=== PATIENT | male | born 1985 | race Caucasian/White ===

== ENCOUNTER → 2021-02-26 10:52 | Outpatient (BNVA) | payer MEDICARE, MEDICAID, SELFPAY | PROVIDERS: Family Provider Nurse Practitioner Family; PCP Nurse Practitioner Family; Referring Provider Nurse Practitioner Family; Visit Provider Anesthesiology Pain Medicine | DX: M47.816 Spondylosis without myelopathy or radiculopathy, lumbar region (principal); M54.16 Radiculopathy, lumbar region; M48.062 Spinal stenosis, lumbar region with neurogenic claudication; M54.9 Dorsalgia, unspecified; M17.0 Bilateral primary osteoarthritis of knee; Z79.891 Long term (current) use of opiate analgesic | CPT/HCPCS: 99205 ==

== ENCOUNTER → 2021-03-03 13:02 | Outpatient (BNVA) | payer MEDICARE, MEDICAID, SELFPAY | PROVIDERS: Family Provider Nurse Practitioner Family; PCP Nurse Practitioner Family; Visit Provider Anesthesiology Pain Medicine | DX: M54.41 Lumbago with sciatica, right side (principal); M54.42 Lumbago with sciatica, left side; M25.551 Pain in right hip; M25.552 Pain in left hip | CPT/HCPCS: 20610; 77002; J1030; J3490 ==

== ENCOUNTER → 2021-03-19 10:14 | Outpatient (BNVA) | payer MEDICARE, MEDICAID, SELFPAY | PROVIDERS: Family Provider Nurse Practitioner Family; PCP Nurse Practitioner Family; Visit Provider Anesthesiology Pain Medicine | DX: M25.551 Pain in right hip (principal); M25.552 Pain in left hip; M54.9 Dorsalgia, unspecified; M54.16 Radiculopathy, lumbar region; M16.0 Bilateral primary osteoarthritis of hip; Z79.891 Long term (current) use of opiate analgesic | CPT/HCPCS: 99213 ==

== ENCOUNTER 2021-03-24 14:48 | Outpatient (CLI) | payer MEDICARE, MEDICAID, SELFPAY ==
--- NOTE | 2021-03-24 15:15 | MR_ITS ---
WS: [id number] MRI LUMBAR SPINE NONCONTRAST TECHNIQUE: Sagittal T1, T2 and STIR imaging. Axial T1 and T2 imaging. CLINICAL INFORMATION: M54.16 - Radiculopathy, lumbar region COMPARISON: None. FINDINGS: Mild lumbar curve. No acute compression. No high-grade central canal stenosis. S1 is partially lumbar ized with a rudimentary disc space. L1-L2: Normal. L2-L3: No significant disc bulging. Spinal canal and foramen are patent. Mild facet arthropathy. L3-L4: No significant disc bulging. Mild facet arthropathy. Spinal canal and foramen are patent. L4-L5: Mild left eccentric disc osteophytic ridging. Mild left greater than right foraminal narrowing . Mild facet arthropathy. Spinal canal is patent. L5-S1: Mild disc osteophytic ridging with narrowing of the right subarticular recess. Mild right grea ter than left bony foraminal narrowing. Mild to moderate facet arthropathy. Visualized pelvic bony structures: Normal. Paravertebral soft tissues: Normal. Prominent retrocerebellar arachnoid cyst seen on the senior facilities manager imaging. This can be further evaluated wit h MRI head. MR/MR lumbar spine wo con* [id number] IMPRESSION: 1. Mild lumbar curve. No acute compression. No high-grade central canal stenos is. 2. Disc osteophytic ridging L5-S1 with slight impingement on the exiting right greater than left L5 nerve roots.Correlation for L5 nerve root symptoms. Sligh t narrowing of the right subarticular recess at this level. 3. Mild bilateral L4-5 bony foraminal narrowing. 4. Moderate facet arthropathy L3-4 L4-L5 and L5-S1. 5. S1 is partially lumbarized with rudimentary disc space. 6. Partially visualized retrocerebellar arachnoid cyst seen on the senior facilities manager imagi ng with vermian atrophy. This can be further evaluated with MRI head.
== END 2021-03-24 14:49 | disposition home or self-care (01) ==
LOC: RADSHAW 14:56
PROVIDERS: PCP Nurse Practitioner Family; Visit Provider Anesthesiology Pain Medicine
DX: M54.16 Radiculopathy, lumbar region (principal); M47.816 Spondylosis without myelopathy or radiculopathy, lumbar region; G93.0 Cerebral cysts
CPT/HCPCS: 72148

== ENCOUNTER 2021-05-16 16:58 | Inpatient (IN) | payer MEDICARE, MEDICAID, SELFPAY ==
[2021-05-16 17:12] VITALS: BP 92/54; PULSE 92; RESP 18; TEMP 36.9; O2SAT 91; BMI 38.0
[2021-05-16 17:16] VITALS: BP 124/86; PULSE 62; RESP 20; O2SAT 96
--- NOTE | 2021-05-16 17:38 | ED_ITS ---
Documented by User: FREDO Malhotra 05/16/21 22:05 HPI - COVID General: Chief Complaint: COVID symptoms Stated Complaint: h/a,n/v,loss appetite,congestion,fever 101+/home Time Seen by Provider: 05/16/21 17:19 Source: patient and family Mode of arrival: wheelchair Limitations: no limitations Triage information: Has fever, cough or shortness of breath . No known COVID + exposure last 14 days History of Present Illness: HPI Narrative: Patient is a 35-year-old male who presents to ED today along with his mother for complaints of a headache, fevers as high as 102, nonproductive cough, decreased appetite, and one episode of vomiting. Symptoms have been present over the past 2 to 3 days. Patient has significant cognitive delays thus all of history is reported from the mother. Mother is concerned patient could have COVID as one of his caregivers had a positive exposure. PMH is significant for gout, hypothyroidism, obstructive sleep apnea, chronic hip/back pain, GERD, hip dysplasia MD complaint: has COVID symptoms Prior covid testing: no COVID 19 common symptoms: positive fever(s) (101-102), non-productive cough, headache(s) and vomiting (x 1); negative dyspnea, throat pain or diarrhea COVID Results: SARS-CoV-2 Antigen (Rapid) Negative (Negative) 05/16/21 18:38 05/16/21 Nasal/Oral Coronavirus 2019 PCR Pending 05/16/21 22:22 05/16/21 Review of Systems General: Reports: ROS unobtainable due to medical condition (mother states he responds yes to everything ) and Other (marked complaints that mother has noticed or that pt has complained to her) Const: Reports: fever(s) (101-102) and change in appetite ENMT: Reports: nasal discharge and other ( nose pain ); Denies: throat pain or odynophagia Card: Denies: swelling of feet/ankles or syncope Resp: Reports: non-productive cough; Denies: dyspnea or hemoptysis GI: Reports: vomiting (x 1); Denies: abdominal pain, hematemesis, diarrhea or constipation : Denies: hematuria Skin/Breast: Denies: rash Neuro: Reports: headache(s) and other (normal mental status per mother) [facility] ED PFSH: Medical History Down's syndrome H/O cardiac murmur Hip pain Hypothyroid Lumbar radiculopathy Osteoarthritis Pectus excavatum Surgical History H/O adenoidectomy History of tonsillectomy Status post surgery of both feet Family History Mother Cancer lung cancer Father Cancer lung cancer Brother Suicide Social History Smoking and tobacco status: never smoked Alcohol intake: never History of recent travel: No Physical Exam Const: COMMON NORMALS: no acute distress and alert EXAM LIMITATIONS: other limitations (cognitive delays) GENERAL APPEARANCE: cooperative NUTRITIONAL APPEARANCE: overweight ORIENTATION/CONSCIOUSNESS: Yes awake HENMT: COMMON NORMALS: normocephalic, atraumatic, hearing grossly normal bilaterally, external ears normal, EAC's normal, TM's normal bilaterally, Normal external nose present, Normal nasal mucous membranes and turbinates present, moist oral mucous membranes, oropharynx normal and gingiva normal HEAD & SCALP: normal to inspection, normocephalic and atraumatic FACE & SINUS: normal facial exam and sinuses nontender NOSE: Normal external nose present and Normal nasal mucous membranes and turbinates present EXTERNAL EAR: Yes external ears normal EXTERNAL AUDITORY CANAL: EAC's normal TYMPANIC MEMBRANE: TM's normal bilaterally MOUTH: Normal oral and palatal mucosa pre sent, lip normal and tongue normal THROAT: posterior oropharynx normal, tonsils normal and uvula midline Eye: GENERAL EYE: appearance normal, both eyes and all related structures Neck/C-Spine: COMMON NORMALS: full ROM, no lymphadenopathy and no meningeal signs Resp: COMMON NORMALS: normal respiratory effort AUSCULTATION: rhonchi left lower Cardio: COMMON NORMALS: regular rate and regular rhythm RATE: regular rate RHYTHM: regular rhythm GI: COMMON NORMALS: Normal to inspection, nondistended, normoactive bowel sounds present, Soft to palpation, non-tender, No hepatosplenomegaly present and no masses PALPATION: Yes Soft to palpation and Yes No hepatosplenomegaly present Extremity: COMMON NORMALS: normal to inspection Neuro: NATHAN COMA SCALE: document GCS findings Nathan coma scale eye opening: Spontaneous Rumson coma scale verbal response: Orientated Nathan coma scale motor response: Obey commands Nathan coma scale total score: 15 SENSORIUM/ORIENTATION: Yes alert MENINGEAL SIGNS: Yes no meningeal signs OTHER: no chnages to mental status per mother Skin: COMMON NORMALS: no rashes or lesions noted GENERAL SKIN EXAM: no rashes or lesions noted Course Consultations: Consultation #1: Dr. Stratton-accepts admit Vital Signs: Vital signs: Vital Signs Temperature 98.8 F 05/17/21 04:00 Pulse Rate 103 H 05/17/21 04:00 Respiratory Rate 20 H 05/17/21 04:00 Blood Pressure 109/73 05/17/21 04:00 Pulse Oximetry 94 05/17/21 04:00 MDM - COVID MDM Narrative: Medical decision making narrative: Patient has a right lower lobe pneumonia. Is a white count of 18,000. Lactate is normal. Patient was initially triaged with a sat of 91%. Every time I have been in the room he has hovered anywhere from 86 to 92%. His CRP is 168. Flu and rapid COVID are negative. PCR was sent. He was started on IV antibiotics. I think at this time patient would benefit from coming into the hospital. Dr. Stratton graciously accepts. Dr. Ahmadi will write admit orders. Lab Data: Labs: Lab Results 05/16/21 05/16/21 05/16/21 Range/Units 18:30 18:30 18:30 WBC 18.0 H (4.0-10.0) 10^3/ uL RBC 5.06 (4.1-5.3) 10^6/u L Hgb 15.6 (11.7-16.6) g/dL Hct 48.6 (42.0-52.0) % MCV 96.0 H (80-94) fL MCH 30.8 (28.0-34.0) pg MCHC 32.1 (30.0-36.0) g/dL RDW 14.3 (12.1-15.1) % Plt Count 297 (130-400) 10^3/c mm MPV 9.5 (7.4-10.4) fL Neut % (Auto) 77.0 % Lymph % (Auto) 14.2 % [place] % (Auto) 7.3 % Eos % (Auto) 0.4 % Baso % (Auto) 0.5 % Neut # (Auto) 13.86 H (1.8-7.7) 10^3/u L Lymph # (Auto) 2.6 (0.8-4.8) 10^3/u L [place] # (Auto) 1.3 H (0.2-0.9) 10^3/u L Eos # (Auto) 0.1 (0.0-0.8) 10^3/u L Baso # (Auto) 0.1 (0.0-0.1) 10^3/u L Nucleated RBC % (a uto) 0 % Nucleated RBCs # 0.0 /100WBC Sodium 138 (136-145) mmol/L Potassium 3.8 (3.5-5.1) mmol/L Chloride 101 (98-107) mmol/L Carbon Dioxide 26 (22-29) mmol/L Anion Gap 14.8 (5-19) BUN 17 (6-20) mg/dL Creatinine 1.1 (0.7-1.2) mg/dL GFR Calculation 75.7 L (90-130) mL/min Glucose 99 (65-115) mg/dL Calculated Osmolal ity 288 (285-295) mOsm/k g Lactic Acid (0.5-2.2) mmol/L Calcium 9.1 (8.5-10.5) mg/dL Total Bilirubin 0.7 (0.15-1.2) mg/dL AST 15 (0-40) U/L ALT 8 (0-41) U/L Alkaline Phosphata se 91 (40-130) IU/L C-Reactive Protein 168.6 H (0.0-4.9) mg/L Total Protein 7.4 (6.6-8.7) g/dL Albumin 3.7 (3.5-5.2) g/dL Globulin 3.7 (1.3-4.6) g/dL Procalcitonin (0-0.5) ng/mL Influenza Type A A g Negative (Negative) Influenza Type B A g Negative (Negative) SARS-CoV-2 Ag (Rap id) (Negative) 06/27/21 06/27/21 06/27/21 Range/Units 18:30 18:38 20:01 WBC (4.0-10.0) 10^3/ uL RBC (4.1-5.3) 10^6/u L Hgb (11.7-16.6) g/dL Hct (42.0-52.0) % MCV (80-94) fL MCH (28.0-34.0) pg MCHC (30.0-36.0) g/dL RDW (12.1-15.1) % Plt Count (130-400) 10^3/c mm MPV (7.4-10.4) fL Neut % (Auto) % Lymph % (Auto) % [place] % (Auto) % Eos % (Auto) % Baso % (Auto) % Neut # (Auto) (1.8-7.7) 10^3/u L Lymph # (Auto) (0.8-4.8) 10^3/u L [place] # (Auto) (0.2-0.9) 10^3/u L Eos # (Auto) (0.0-0.8) 10^3/u L Baso # (Auto) (0.0-0.1) 10^3/u L Nucleated RBC % (a uto) % Nucleated RBCs # /100WBC Sodium (136-145) mmol/L Potassium (3.5-5.1) mmol/L Chloride (98-107) mmol/L Carbon Dioxide (22-29) mmol/L Anion Gap (5-19) BUN (6-20) mg/dL Creatinine (0.7-1.2) mg/dL GFR Calculation (90-130) mL/min Glucose (65-115) mg/dL Calculated Osmolal ity (285-295) mOsm/k g Lactic Acid 0.9 (0.5-2.2) mmol/L Calcium (8.5-10.5) mg/dL Total Bilirubin (0.15-1.2) mg/dL AST (0-40) U/L ALT (0-41) U/L Alkaline Phosphata se (40-130) IU/L C-Reactive Protein (0.0-4.9) mg/L Total Protein (6.6-8.7) g/dL Albumin (3.5-5.2) g/dL Globulin (1.3-4.6) g/dL Procalcitonin 0.73 H (0-0.5) ng/mL Influenza Type A A g (Negative) Influenza Type B A g (Negative) SARS-CoV-2 Ag (Rap id) Negative (Negative) Imaging Data: CXR: Radiologist's impression: [address] [address] XRay Report Signed Patient: Deandre Lopez Unit #: [id number] : 1985 Age/Sex: 35 / M ADM Date: 05/16/21 Loc: ER Room/Bed: Attending Dr: Ordering Provider/Ordering MD: Lizbeth House Date of Service: 05/16/21 Procedure(s): XR chest 1V portable [id number] Accession Number(s): [id number] Report Number: [id number] PROCEDURE INFORMATION: Exam: XR Chest Exam date and time: 05/16/2021 5:37 PM Age: 35 years old Clinical indication: Cough and fever; Additional info: Cough, fevers TECHNIQUE: Imaging protocol: XR of the chest. Views: 1 view. Total images: 1 COMPARISON: No relevant prior studies available. FINDINGS: Lungs: Right lower lobe pneumonitis/pneumonia. Pleural spaces: Potential small right pleural effusion. No pneumothorax. Heart/Mediastinum: Unremarkable. No cardiomegaly. Bones/joints: Scoliotic curvature. Other findings: Motion artifact. XR/XR chest 1V portable [id number] IMPRESSION: 1. Right lower lobe pneumonitis/pneumonia. 2. Potential small right pleural effusion. Dictated By: Juan Mera Signed By: Juan Mera Signed Date/Time: 05/16/211855 DD/ 53 COVID Results: SARS-CoV-2 Antigen (Rapid) Negative (Negative) 05/16/21 18:38 05/16/21 Nasal/Oral Coronavirus 2019 PCR Pending 05/16/21 22:22 05/16/21 Discharge Plan Discharge Patient Disposition: Admitted As Inpatient Admit Provider: Salo Stratton Clinical Impression: Right lower lobe pneumonia Qualifiers: Pneumonia type: due to unspecified organism Qualified Code(s): J18.9 - Pneumonia, unspecified organism Condition: Stable Coding Level of Care Code ED Horticulturalist for Chg Fwd Exam Comprehensive Documented by User: Deandre Ahmadi, 05/17/21 05:39 HPI - COVID General: Chief Complaint: COVID symptoms Stated Complaint: h/a,n/v,loss appetite,congestion,fever 101+/home Time Seen by Provider: 05/16/21 17:19 COVID Results: SARS-CoV-2 Antigen (Rapid) Negative (Negative) 05/16/21 18:38 05/16/21 Nasal/Oral Coronavirus 2019 PCR Pending 05/16/21 22:22 05/16/21 PFSH ED PFSH: Medical History Down's syndrome H/O cardiac murmur Hip pain Hypothyroid Lumbar radiculopathy Osteoarthritis Pectus excavatum Surgical History H/O adenoidectomy History of tonsillectomy Status post surgery of both feet Family History Mother Cancer lung cancer Father Cancer lung cancer Brother Suicide Social History Smoking and tobacco status: never smoked Alcohol intake: never History of recent travel: No Course Vital Signs: Vital signs: Vital Signs Temperature 98.8 F 05/17/21 04:00 Pulse Rate 103 H 05/17/21 04:00 Respiratory Rate 20 H 05/17/21 04:00 Blood Pressure 109/73 05/17/21 04:00 Pulse Oximetry 94 05/17/21 04:00 MDM - COVID MDM Narrative: Medical decision making narrative: 35-year-old patient originally seen by Mrs. House?YULIA Lopes. I agree with her history, evaluation, work-up, and treatment. This patient has community-acquired pneumonia with a white blood cell count of 18 and marginal oxygenation on room air with episodes of significant hypoxia. He is requiring oxygen. He is admitted to the hospital for pneumonia and hypoxic respiratory failure. Orders were written. Lab Data: Labs: Lab Results 05/16/21 05/16/21 05/16/21 Range/Units 18:30 18:30 18:30 WBC 18.0 H (4.0-10.0) 10^3/ uL RBC 5.06 (4.1-5.3) 10^6/u L Hgb 15.6 (11.7-16.6) g/dL Hct 48.6 (42.0-52.0) % MCV 96.0 H (80-94) fL MCH 30.8 (28.0-34.0) pg MCHC 32.1 (30.0-36.0) g/dL RDW 14.3 (12.1-15.1) % Plt Count 297 (130-400) 10^3/c mm MPV 9.5 (7.4-10.4) fL Neut % (Auto) 77.0 % Lymph % (Auto) 14.2 % [place] % (Auto) 7.3 % Eos % (Auto) 0.4 % Baso % (Auto) 0.5 % Neut # (Auto) 13.86 H (1.8-7.7) 10^3/u L Lymph # (Auto) 2.6 (0.8-4.8) 10^3/u L [place] # (Auto) 1.3 H (0.2-0.9) 10^3/u L Eos # (Auto) 0.1 (0.0-0.8) 10^3/u L Baso # (Auto) 0.1 (0.0-0.1) 10^3/u L Nucleated RBC % (a uto) 0 % Nucleated RBCs # 0.0 /100WBC Sodium 138 (136-145) mmol/L Potassium 3.8 (3.5-5.1) mmol/L Chloride 101 (98-107) mmol/L Carbon Dioxide 26 (22-29) mmol/L Anion Gap 14.8 (5-19) BUN 17 (6-20) mg/dL Creatinine 1.1 (0.7-1.2) mg/dL GFR Calculation 75.7 L (90-130) mL/min Glucose 99 (65-115) mg/dL Calculated Osmolal ity 288 (285-295) mOsm/k g Lactic Acid (0.5-2.2) mmol/L Calcium 9.1 (8.5-10.5) mg/dL Total Bilirubin 0.7 (0.15-1.2) mg/dL AST 15 (0-40) U/L ALT 8 (0-41) U/L Alkaline Phosphata se 91 (40-130) IU/L C-Reactive Protein 168.6 H (0.0-4.9) mg/L Total Protein 7.4 (6.6-8.7) g/dL Albumin 3.7 (3.5-5.2) g/dL Globulin 3.7 (1.3-4.6) g/dL Procalcitonin (0-0.5) ng/mL Influenza Type A A g Negative (Negative) Influenza Type B A g Negative (Negative) SARS-CoV-2 Ag (Rap id) (Negative) 05/16/21 05/16/21 05/16/21 Range/Units 18:30 18:38 20:01 WBC (4.0-10.0) 10^3/ uL RBC (4.1-5.3) 10^6/u L Hgb (11.7-16.6) g/dL Hct (42.0-52.0) % MCV (80-94) fL MCH (28.0-34.0) pg MCHC (30.0-36.0) g/dL RDW (12.1-15.1) % Plt Count (130-400) 10^3/c mm MPV (7.4-10.4) fL Neut % (Auto) % Lymph % (Auto) % [place] % (Auto) % Eos % (Auto) % Baso % (Auto) % Neut # (Auto) (1.8-7.7) 10^3/u L Lymph # (Auto) (0.8-4.8) 10^3/u L [place] # (Auto) (0.2-0.9) 10^3/u L Eos # (Auto) (0.0-0.8) 10^3/u L Baso # (Auto) (0.0-0.1) 10^3/u L Nucleated RBC % (a uto) % Nucleated RBCs # /100WBC Sodium (136-145) mmol/L Potassium (3.5-5.1) mmol/L Chloride (98-107) mmol/L Carbon Dioxide (22-29) mmol/L Anion Gap (5-19) BUN (6-20) mg/dL Creatinine (0.7-1.2) mg/dL GFR Calculation (90-130) mL/min Glucose (65-115) mg/dL Calculated Osmolal ity (285-295) mOsm/k g Lactic Acid 0.9 (0.5-2.2) mmol/L Calcium (8.5-10.5) mg/dL Total Bilirubin (0.15-1.2) mg/dL AST (0-40) U/L ALT (0-41) U/L Alkaline Phosphata se (40-130) IU/L C-Reactive Protein (0.0-4.9) mg/L Total Protein (6.6-8.7) g/dL Albumin (3.5-5.2) g/dL Globulin (1.3-4.6) g/dL Procalcitonin 0.73 H (0-0.5) ng/mL Influenza Type A A g (Negative) Influenza Type B A g (Negative) SARS-CoV-2 Ag (Rap id) Negative (Negative) COVID Results: SARS-CoV-2 Antigen (Rapid) Negative (Negative) 05/16/21 18:38 05/16/21 Nasal/Oral Coronavirus 2019 PCR Pending 05/16/21 22:22 05/16/21 Discharge Plan Discharge Patient Disposition: Admitted As Inpatient Admit Provider: Salo Stratton Clinical Impression: Right lower lobe pneumonia Qualifiers: Pneumonia type: due to unspecified organism Qualified Code(s): J18.9 - Pneumonia, unspecified organism Condition: Stable Coding Level of Care Code ED Horticulturalist for [facility] Fwd Exam Comprehensive
[2021-05-16 18:42] LABS: Basophils # 0.1 10^3/uL (0.0-0.1); Basophils % 0.5 %; Eosinophils # 0.1 10^3/uL (0.0-0.8); Eosinophils % 0.4 %; Hematocrit 48.6 % (42.0-52.0); Hemoglobin 15.6 g/dL (11.7-16.6); Lymphocytes # 2.6 10^3/uL (0.8-4.8); Lymphocytes % 14.2 %; Mean Corpuscular HGB Conc 32.1 g/dL (30.0-36.0); Mean Corpuscular Hemoglobin 30.8 pg (28.0-34.0); Mean Platelet Volume 9.5 fL (7.4-10.4); Monocytes # 1.3 10^3/uL (0.2-0.9); Monocytes % 7.3 %; Neutrophils # 13.86 10^3/uL (1.8-7.7); Nucleated Red Blood Cells % 0 %; Platelet Count 297 10^3/cmm (130-400); Red Blood Count 5.06 10^6/uL (4.1-5.3); Red Cell Distribution Width 14.3 % (12.1-15.1)
[2021-05-16 19:01] LABS: Alanine Aminotransferase 8 U/L (0-41); Albumin Level 3.7 g/dL (3.5-5.2); Alkaline Phosphatase 91 IU/L (40-130); Anion Gap 14.8 (5-19); Aspartate Amino Transferase 15 U/L (0-40); Blood Urea Nitrogen 17 mg/dL (6-20); C Reactive Protein 168.6 mg/L (0.0-4.9); Calcium 9.1 mg/dL (8.5-10.5); Carbon Dioxide 26 mmol/L (22-29); Chloride 101 mmol/L (98-107); Creatinine Clr Calc Pharmacy 85.8531; Globulin 3.7 g/dL (1.3-4.6); Glomerular Filtration Rate 75.7 mL/min (90-130); Glucose 99 mg/dL (65-115); Osmolality Calculated 288 mOsm/kg (285-295); Potassium 3.8 mmol/L (3.5-5.1); Sodium 138 mmol/L (136-145); Total Bilirubin 0.7 mg/dL (0.15-1.2); Total Protein 7.4 g/dL (6.6-8.7)
[2021-05-16 19:06] LABS: Influenza A by IFA Negative (Negative); Influenza B by IFA Negative (Negative)
[2021-05-16 19:15] LABS: SARS Covid-2 Antigen Negative (Negative)
[2021-05-16 20:43] LABS: Lactic Sepsis W/Reflex 0.9 mmol/L (0.5-2.2)
[2021-05-16 20:46] VITALS: BP 118/78; PULSE 107; RESP 20; TEMP 37.2; O2SAT 92
[2021-05-16] MEDS: cefTRIAXone 1,000 MG in sodium chloride 0.9% (plus) 50 ML 100 MG IV (20:50)
[2021-05-16 21:01] VITALS: PULSE 96; RESP 20; O2SAT 95
[2021-05-16] MEDS: azithromycin 500 MG in sodium chloride 0.9% 250 ML 250 MG IV (21:38)
--- NOTE | 2021-05-16 21:55 | P.HP_ITS ---
Providers/Chief Complaint Primary Care Provider: Marina Aguirre Chief Complaint: h/a,n/v,loss appetite,congestion,fever 101+/home History of Present Illness Deandre Lopez is a 35 year old male carries history of Down syndrome, hypothyroidism, hip osteoarthritis presented today with chief complaint of nonproductive cough and fever. His sister who is his legal guardian/caregiver is present in the room endorsing that on Monday he started having worsening of his nonproductive cough, temperature at home 100.4 Fahrenheit, on Monday she t ried to give ibuprofen for his headache, but on Monday his headache worsened and he vomited once. Mr. Perales is able to eat a regular diet, she has not noticed any choking on food however endorsing recurrent pneumonias in the past. He also has history of esophageal stricture secondary to GERD. Diagnostics in the ER revealed sepsis, right lower lobe pneumonia, he was given ceftriaxone and azithromycin in the ER CBC shows white count of 18, lactic acid is normal procalcitonin 0.7 Covid antigen negative, PCR sent Of note, there is a caregiver who takes care of Mr. Perales 3 days in a week, she has been exposed to COVID-19 patient in the past. Review of Systems Const: Reports: fever(s), body aches and fatigue; Denies: chills Eyes: Denies: change in vision ENMT: Denies: throat pain Card: Reports: dyspnea on exertion; Denies: chest pain Resp: Reports: dyspnea and non-productive cough GI: Denies: abdominal pain : Denies: flank pain Musc: Denies: neck pain Skin/Breast: Reports: lesions Neuro: Reports: headache(s); Denies: confusion Psych: Denies: anxiety Endo: Denies: polyuria Clint/Lymph: Denies: easy bruising All/Imm: Denies: urticaria Medications/Allergies Home Medications Medication Instructions Recorded Confirmed Last Taken Type allopurinol 100 mg tablet 100 mg PO DAILY 02/26/21 04/16/21 Unknown History alprazolam 0.5 mg tablet 0.5 mg PO TID PRN 02/26/21 04/16/21 Unknown History citalopram 40 mg tablet 40 mg PO DAILY 02/26/21 04/16/21 Unknown History colchicine 0.6 mg tablet 0.3 mg PO DAILY 02/26/21 04/16/21 Unknown History famotidine 20 mg tablet 20 mg PO BID 02/26/21 04/16/21 Unknown History levothyroxine 125 mcg capsule 125 mcg PO DAILY 02/26/21 04/16/21 Unknown History meloxicam 15 mg tablet 15 mg PO DAILY 02/26/21 04/16/21 Unknown History omeprazole 40 mg capsule,delayed 40 mg PO DAILY 02/26/21 04/16/21 Unknown History release tramadol 300 mg tablet,extended 300 mg PO DAILY 02/26/21 04/16/21 Unknown History release 24 hr Allergies Allergy/AdvReac Type Severity Reaction Status Date / Time No Known Allergies Allergy Verified 04/16/21 10:53 PFSH Acute PFSH: Medical History Down's syndrome H/O cardiac murmur Hip pain Hypothyroid Lumbar radiculopathy Osteoarthritis Pectus excavatum Surgical History H/O adenoidectomy History of tonsillectomy Status post surgery of both feet Family History Mother Cancer lung cancer Father Cancer lung cancer Brother Suicide Social History Smoking and tobacco status: never smoked Alcohol intake: never History of recent travel: No Vitals/I&O/Wt Last Vital Signs Temp 98.9 F 05/16/21 20:46 Pulse 96 05/16/21 21:01 Resp 20 H 05/16/21 21:01 BP 118/78 05/16/21 20:46 Pulse Ox 95 05/16/21 21:01 05/16/21 05/16/21 05/16/21 06:59 14:59 22:59 Intake Total 50 / 50 Balance 50 / 50 Weight last 48 hrs Weight 88.451 kg Physical Exam Narrative: EXAM NARRATIVE: Very pleasant cooperative young male with Down syndrome features S1, S2 I did not appreciate any loud murmur No active signs of congestive heart failure No acute respite distress saturating well on 3 to 4 L nasal cannula Bilateral breath sounds without active wheezing, diminished at the bases Abdomen soft, multiple maculopapular rash all over his abdomen which is chronic Soft abdomen no signs of peritonitis Lower extremity no edema gangrene or ulcer EOMI, PERRLA He is able to verbalize his concerns No active neurological deficit No Active signs of gout Has history of hip arthritis with limited range of motion at hip joint Data : 05/16/21 18:30 05/16/21 18:30 Micro: Microbiology 05/16/21 20:01 Blood Culture - Preliminary Blood SPECIMEN COLLECTED 05/16/21 20:09 Blood Culture - Preliminary Blood SPECIMEN COLLECTED A&P Assessment and plan (1) Right lower lobe pneumonia: Status: Acute Qualifiers: Pneumonia type: due to unspecified organism Qualified Code(s): J18.9 - Pneumonia, unspecified organism (2) Acute respiratory failure with hypoxia: Status: Acute (3) Sepsis: Status: Acute Additional A&P Information Sepsis with community-acquired pneumonia Concern for aspiration pneumonia considering history of esophageal stricture secondary to GERD I would use ceftriaxone for strep pneumo coverage and Zosyn for gram-negative and anaerobic coverage Requested procalcitonin which came back high 0.73, sepsis criteria met with leukocytosis, tachypnea, tachycardia, lactic acid is normal, no signs of encephalopathy, currently requiring 40 nasal cannula oxygen Requested urine antigens and blood culture, MRSA PCR and Covid PCR Covid antigen negative DuoNeb every 4 as needed Acute hypoxic respiratory failure secondary to community-acquired pneumonia Home O2 evaluation before discharge, currently requiring 4 L nasal cannula at home he does not use his BiPAP which was prescribed for sleep apnea, in the morning he does not use any oxygen, his oxygen requirement is new Hypothyroidism: Continue levothyroxine History of gout: I would continue allopurinol for now Esophageal stricture: Continue Protonix and famotidine Full code DVT prophylaxis Lovenox N.p.o.: Speech evaluation in the morning, bedside evaluation unremarkable Attestations Medical Necessity Statement*: Anticipating stay in the hospital because more than 2 midnights for management of community-acquired pneumonia, sepsis need speech evaluation Time Spent in Patient Care: 35mins Coding Level of Care Code Acute Environmental Engineering Aide for Chg Fwd Diagnoses Right lower lobe pneumonia J18.9 Pneumonia type: due to unspecified organism Acute respiratory failure with hypoxia J96.01 Sepsis A41.9
[2021-05-16 22:42] LABS: Procalcitonin 0.73 ng/mL (0-0.5)
[2021-05-16 22:58] VITALS: BP 114/73; PULSE 81; RESP 20; O2SAT 95
[2021-05-16 23:59] VITALS: BP 116/82; PULSE 87; RESP 20; TEMP 36.8; O2SAT 97
[2021-05-17] VITALS (7 sets, daily range): BP systolic 109–125; BP diastolic 73–83; PULSE 87–108; RESP 17–20; TEMP 37–38.1; O2SAT 92–97
[2021-05-17] MEDS: piperacillin-tazobactam 3.375 GM in sodium chloride 0.9% (plus) 50 ML IV ×4 (00:28→23:37)
[2021-05-17 06:12] LABS: Basophils # 0.1 10^3/uL (0.0-0.1); Basophils % 0.4 %; Eosinophils % 0.2 %; Hematocrit 42.3 % (42.0-52.0); Hemoglobin 13.8 g/dL (11.7-16.6); Lymphocytes # 2.4 10^3/uL (0.8-4.8); Lymphocytes % 14.5 %; Mean Corpuscular HGB Conc 32.6 g/dL (30.0-36.0); Mean Corpuscular Hemoglobin 30.8 pg (28.0-34.0); Mean Corpuscular Volume 94.4 fL (80-94); Mean Platelet Volume 10.1 fL (7.4-10.4); Monocytes # 1.4 10^3/uL (0.2-0.9); Monocytes % 8.5 %; Neutrophils % 75.7 %; Nucleated Red Blood Cells % 0 %; Platelet Count 286 10^3/cmm (130-400); Red Blood Count 4.48 10^6/uL (4.1-5.3); White Blood Count 16.8 10^3/uL (4.0-10.0)
[2021-05-17 06:33] LABS: Blood Urea Nitrogen 14 mg/dL (6-20); Calcium 8.5 mg/dL (8.5-10.5); Carbon Dioxide 25 mmol/L (22-29); Chloride 100 mmol/L (98-107); Glomerular Filtration Rate 95.5 mL/min (90-130); Glucose 101 mg/dL (65-115); Osmolality Calculated 279 mOsm/kg (285-295); Sodium 134 mmol/L (136-145)
[2021-05-17 06:36] LABS: Anion Gap 12.7 (5-19); Potassium 3.7 mmol/L (3.5-5.1)
[2021-05-17] MEDS: citalopram 20 mg Tablet 40 MG PO (09:01)
[2021-05-17] MEDS: allopurinol 100 mg Tablet PO (09:01)
[2021-05-17] MEDS: pantoprazole DR 40 mg Tablet PO (09:01)
[2021-05-17] MEDS: levothyroxine 125 mcg Tablet PO (09:01)
[2021-05-17] MEDS: famotidine 20 mg Tablet PO ×2 (09:01→16:39)
[2021-05-17 12:03] LABS: D Dimer 1.58 ug/mIFEU (0-0.59)
--- NOTE | 2021-05-17 13:03 | PC.CHAP ---
Pastoral Care Encounter/Spiritual Assessment Type of Contact [] Declined manager foreign visit [] Patient/Family/Request visit [] Outpatient visit [x] Follow-up visit [] Physician referral [] Code/Alert [] Routine visit [] Staff referral [] Actively dying [] Patient sleeping [] Family support [] [] Out of room [] Palliative care [] [x] Receiving care in room [] Pre-surgical visit [] Trauma [] Long length of stay [] ICU visit [] Other: Relational/Emotional Strength [] Patient feels connected with others/family/visitors/staff [] Distress [] Loneliness/isolation [] Abandonment Spirituality of Patient [] Person of [place] [] Attends Faith of their [place] [] Believes in Prayer [] Reads Bible or Evangelical materials [] There are Spiritual issues to be addressed [place] [employer] Interventions [] Prayer [] Active listening [] Non-anxious presence [] Spiritual/emotional support [] Crisis/trauma care [] Spiritual counseling [] Bereavement support [] Provided bereavement packet [] Provided Bible/devotional materials [] Provided toy/stuffed animal, coloring book to patient or family member [] Provided Communion [] Anointing/[place] [] Salvation [] Completed spiritual assessment [] Other: Impact on Illness or Injury [] Angry [] Fearful [] Anxious [] Often cries [] Exhaustion [] Unable to work [] Unable to attend mandaeism [] Unable to walk/stand [] Unable to read [] Unable to drive [] Unable to eat/drink [] Unable to sleep [] Unable to be with family [] Patient intubated [] Other: Summary Time spent with patient
[2021-05-17] MEDS: azithromycin 500 MG in sodium chloride 0.9% 250 ML 250 MG IV (13:42)
--- NOTE | 2021-05-17 14:34 | P.PN_ITS ---
Subjective Subjective: Interval history: t max 100.5F, 02 requirements stable, saturating 96% on 3lpm NC, no acute interim events, Covid PCR pending, d dimer returned elevated Medications: Reviewed: Yes Vitals/I&O/Wt Last Vital Signs Temp 98.6 F 05/17/21 12:00 Pulse 90 05/17/21 12:00 Resp 18 05/17/21 12:00 BP 125/82 05/17/21 12:00 Pulse Ox 96 05/17/21 12:00 05/16/21 05/17/21 05/17/21 22:59 06:59 14:59 Intake Total 300 / 300 50 / 350 50 / 50 Balance 300 / 300 50 / 350 50 / 50 Weight last 48 hrs Weight 88.451 kg Data : 05/17/21 05:28 05/17/21 05:28 Micro: Microbiology 05/16/21 20:01 Blood Culture - Preliminary Blood SPECIMEN COLLECTED 05/16/21 20:09 Blood Culture - Preliminary Blood SPECIMEN COLLECTED A&P Assessment and plan (1) Right lower lobe pneumonia: Status: Acute Qualifiers: Pneumonia type: due to unspecified organism Qualified Code(s): J18.9 - Pneumonia, unspecified organism (2) Acute respiratory failure with hypoxia: Status: Acute (3) Sepsis: Status: Acute Additional A&P Information Sepsis with community-acquired pneumonia vs aspiration pneumonia Concern for aspiration pneumonia considering history of esophageal stricture secondary to GERD Continue Zosyn for gram-negative and anaerobic coverage, add azithromycin for atypical coverage D/c ceftriaxone as no added spectrum over Zosyn Blood cx negative to date Requested urine antigens and MRSA screen, remains pending New hypoxia and low grade fever with immobility concerning for possible PE, screening d-dimer returned positive, check CTA PE Covid antigen negative, PCR pending DuoNeb every 4 as needed Acute hypoxic respiratory failure likely secondary to pneumonia. 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
--- NOTE | 2021-05-17 14:35 | CT_ITS ---
WS: [id number] CTA OF THE CHEST WITH PULMONARY EMBOLISM PROTOCOL TECHNIQUE: High-resolution contrast enhanced CTA of the chest with coronal and sagittal reformatted i mages with pulmonary embolism protocol. MIP images are also reviewed. CLINICAL INFORMATION: elavted D dimer, new hypoxia COMPARISON: None. DLP: 600.[address] scans at [facility] use at least one of these dose optimization techniques: automat ed exposure control; mA and/or kV adjustment per patient size (includes targeted exams where dose is matched to clinical indication); or iterative reconstruction. FINDINGS: Somewhat limited examination due to breathing artifact. Proximal main pulmonary arteries are normal. No filling defects in the main pulmonary arteries or pro ximal segmental pulmonary arteries. Distal segmental and subsegmental pulmonary arteries not well alhaji luated due to artifact. Small right and no significant left pleural effusion. Shallow inspiration. Patchy groundglass infiltr ates throughout the right greater than left lung. Recommend correlation for COVID19 pneumonia. Mild p ectus excavatum. Small esophageal hiatal hernia. Adrenal glands are normal. Normal thoracic spine. CT/CT angio chest PE protcl [id number] IMPRESSION: 1. No evidence of proximal pulmonary embolus. Distal pulmonary arteries not we ll evaluated due to breathing artifact. 2. Small right pleural effusion. 3. Hazy ground glass infiltrates throughout the right lung with patchy infiltr ates in the right lower lobe. Less prominent hazy infiltrates left lung. Findin gs are nonspecific but can be seen with COVID 19 or viral pneumonia. 4. Mild pectus excavatum. 5. Small esophageal hiatal hernia.
[2021-05-17 15:48] LABS: Coronavirus Test Green County Not Detected
[2021-05-17] MEDS: iohexol 350 mg/mL 100 mL Btl IV (15:54)
--- NOTE | 2021-05-17 16:17 | PC.NURSE ---
patient negative for covid. notified Dr Mcdonald. Per Dr Mcdonald, ok to discontinue isolation order.
[2021-05-18] VITALS (10 sets, daily range): BP systolic 89–116; BP diastolic 56–83; PULSE 81–119; RESP 16–18; TEMP 36.4–38; O2SAT 86–99
[2021-05-18 05:36] LABS: Basophils # 0.1 10^3/uL (0.0-0.1); Basophils % 0.8 %; Eosinophils # 0.1 10^3/uL (0.0-0.8); Eosinophils % 0.4 %; Hematocrit 48.2 % (42.0-52.0); Lymphocytes # 3.9 10^3/uL (0.8-4.8); Lymphocytes % 23.4 %; Mean Corpuscular HGB Conc 31.1 g/dL (30.0-36.0); Mean Corpuscular Hemoglobin 30.9 pg (28.0-34.0); Mean Corpuscular Volume 99.4 fL (80-94); Mean Platelet Volume 9.8 fL (7.4-10.4); Monocytes # 1.8 10^3/uL (0.2-0.9); Monocytes % 10.9 %; Neutrophils # 10.68 10^3/uL (1.8-7.7); Neutrophils % 63.5 %; Nucleated Red Blood Cells % 0 %; Platelet Count 357 10^3/cmm (130-400); Red Blood Count 4.85 10^6/uL (4.1-5.3); White Blood Count 16.8 10^3/uL (4.0-10.0)
[2021-05-18 05:57] LABS: Alanine Aminotransferase 9 U/L (0-41); Albumin Level 3.3 g/dL (3.5-5.2); Alkaline Phosphatase 88 IU/L (40-130); Anion Gap 13.6 (5-19); Aspartate Amino Transferase 15 U/L (0-40); Blood Urea Nitrogen 12 mg/dL (6-20); Carbon Dioxide 27 mmol/L (22-29); Chloride 102 mmol/L (98-107); Globulin 3.7 g/dL (1.3-4.6); Glomerular Filtration Rate 95.5 mL/min (90-130); Glucose 121 mg/dL (65-115); Osmolality Calculated 289 mOsm/kg (285-295); Potassium 3.6 mmol/L (3.5-5.1); Sodium 139 mmol/L (136-145); Total Bilirubin 0.4 mg/dL (0.15-1.2)
[2021-05-18] MEDS: piperacillin-tazobactam 3.375 GM in sodium chloride 0.9% (plus) 50 ML IV ×2 (08:07→18:02)
[2021-05-18] MEDS: levothyroxine 125 mcg Tablet PO (08:08)
[2021-05-18] MEDS: citalopram 20 mg Tablet 40 MG PO (08:08)
[2021-05-18] MEDS: famotidine 20 mg Tablet PO ×2 (08:08→18:02)
[2021-05-18] MEDS: allopurinol 100 mg Tablet PO (08:08)
[2021-05-18] MEDS: pantoprazole DR 40 mg Tablet PO (08:08)
--- NOTE | 2021-05-18 09:40 | PC.NURSE ---
patient was on 2L NC and oxygen was 70%. marketing writer turned patient's oxygen to 4L NC patient's oxygen went to 90-91%. marketing writer notified RT Maria Fernanda. marketing writer returned to check patient 20 minutes later and patient had taken oxygen off and patient saturation was 40%. Shovel Engineer applied oxygen at 4L, NC and oxygen saturation returned to 91%. Shovel Engineer notified RT Venessa
[2021-05-18] MEDS: azithromycin 500 MG in sodium chloride 0.9% 250 ML 250 MG IV (14:53)
--- NOTE | 2021-05-18 19:20 | P.PN_ITS ---
Subjective Subjective: Interval history: tmax 100.4 this morning, overnight 02 sat dropped to 89%, sister reports a h/o sleep apnea for which he is supposed to be on Bipap but non compliant. CTA without PE. B/L diffuse infiltrates. Medications: Reviewed: Yes Vitals/I&O/Wt Last Vital Signs Temp 97.9 F 05/18/21 15:26 Pulse 81 05/18/21 15:26 Resp 17 05/18/21 15:26 BP 89/56 05/18/21 15:26 Pulse Ox 96 05/18/21 15:26 05/18/21 05/18/21 05/18/21 06:59 14:59 22:59 Intake Total 50 / 880 290 / 290 370 / 660 Output Total 200 / 200 Balance -150 / 680 290 / 290 370 / 660 Physical Exam Narrative: EXAM NARRATIVE: GEN: Awake, alert , no acute distress CVS: S1S2 N RS: CTA B/L except crackles over RUL Abd: Soft, nt/nd , bs+ Data : 05/18/21 05:15 05/18/21 05:15 Micro: Microbiology 05/17/21 15:12 MRSA Culture - Final Nose 05/16/21 20:01 Blood Culture - Preliminary Blood NEGATIVE TO DATE 05/16/21 20:09 Blood Culture - Preliminary Blood NEGATIVE TO DATE 05/17/21 15:38 Legionella Urinary Antigen - Final Urine,Voided Bacterial Antigens - Final A&P Assessment and plan (1) Right lower lobe pneumonia: Status: Acute Qualifiers: Pneumonia type: due to unspecified organism Qualified Code(s): J18.9 - Pneumonia, unspecified organism (2) Acute respiratory failure with hypoxia: Status: Acute (3) Sepsis: Status: Acute Additional A&P Information Sepsis with community-acquired pneumonia vs aspiration pneumonia Concern for aspiration pneumonia considering history of esophageal stricture secondary to GERD Continue Zosyn for gram-negative and anaerobic coverage, add azithromycin for atypical coverage D/c ceftriaxone as no added spectrum over Zosyn leukocytosis stable, fever persisting Blood cx negative to date urine antigens and MRSA screen negative CTA negative for PE, diffuse B/L infiltrates Covid antigen negative, PCR additionally negative DuoNeb every 4 as needed Check C diff PCR given persisting low grade fever and leukocytosis Acute hypoxic respiratory failure likely secondary to pneumonia. 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
[2021-05-19] VITALS (7 sets, daily range): BP systolic 101–129; BP diastolic 58–95; PULSE 81–94; RESP 16–26; TEMP 36.7–37.2; O2SAT 92–96
[2021-05-19] MEDS: piperacillin-tazobactam 3.375 GM in sodium chloride 0.9% (plus) 50 ML IV (03:19)
[2021-05-19 06:31] LABS: Basophils # 0.1 10^3/uL (0.0-0.1); Basophils % 1.1 %; Eosinophils # 0.2 10^3/uL (0.0-0.8); Eosinophils % 1.6 %; Hematocrit 44.3 % (42.0-52.0); Hemoglobin 14.1 g/dL (11.7-16.6); Lymphocytes # 2.7 10^3/uL (0.8-4.8); Lymphocytes % 22.7 %; Mean Corpuscular HGB Conc 31.8 g/dL (30.0-36.0); Mean Corpuscular Volume 97.4 fL (80-94); Mean Platelet Volume 10.3 fL (7.4-10.4); Monocytes # 1.4 10^3/uL (0.2-0.9); Monocytes % 11.9 %; Neutrophils # 7.39 10^3/uL (1.8-7.7); Neutrophils % 61.5 %; Nucleated Red Blood Cells % 0 %; Platelet Count 325 10^3/cmm (130-400); Red Blood Count 4.55 10^6/uL (4.1-5.3); Red Cell Distribution Width 13.5 % (12.1-15.1)
[2021-05-19 06:50] LABS: Alanine Aminotransferase 8 U/L (0-41); Alkaline Phosphatase 76 IU/L (40-130); Anion Gap 12.6 (5-19); Aspartate Amino Transferase 14 U/L (0-40); Blood Urea Nitrogen 12 mg/dL (6-20); Calcium 7.9 mg/dL (8.5-10.5); Carbon Dioxide 26 mmol/L (22-29); Chloride 101 mmol/L (98-107); Globulin 3.3 g/dL (1.3-4.6); Glomerular Filtration Rate 127.6 mL/min (90-130); Glucose 86 mg/dL (65-115); Osmolality Calculated 281 mOsm/kg (285-295); Potassium 3.6 mmol/L (3.5-5.1); Sodium 136 mmol/L (136-145); Total Bilirubin 0.4 mg/dL (0.15-1.2); Total Protein 6.3 g/dL (6.6-8.7)
[2021-05-19] MEDS: allopurinol 100 mg Tablet PO (09:22)
[2021-05-19] MEDS: famotidine 20 mg Tablet PO (09:22)
[2021-05-19] MEDS: levothyroxine 125 mcg Tablet PO (09:23)
[2021-05-19] MEDS: pantoprazole DR 40 mg Tablet PO (09:23)
[2021-05-19] MEDS: citalopram 20 mg Tablet 40 MG PO (09:23)
--- NOTE | 2021-05-19 10:59 | PC.SOCIAL ---
*IMM UPDATE* Gave patient's sister verbal IMM update. Verbalized understanding. 05/19/21 @ 0920 Initialed, dated, timed and placed in chart.
--- NOTE | 2021-05-19 22:54 | PM.DCS ---
Discharge Providers Date of Admission: 05/16/21 21:58 Date of Discharge: May 19, 2021 Attending Provider at Admission: Salo Stratton MD Attending Provider at Discharge: Aracelis Mcdonald MD Primary Care Provider: Marina Aguirre Diagnoses at Discharge Discharge Diagnosis (1) Right lower lobe pneumonia: Status: Resolved Qualifiers: Pneumonia type: due to unspecified organism Qualified Code(s): J18.9 - Pneumonia, unspecified organism (2) Acute respiratory failure with hypoxia: Status: Resolved (3) Sepsis: Status: Resolved Reason for Visit Reason for Visit: h/a,n/v,loss appetite,congestion,fever 101+/home Hospital Course Hospital Course Deandre Lopez is a 35 year old male carries history of Down syndrome, hypothyroidism, hip osteoarthritis presented today with chief complaint of nonproductive cough and fever.Diagnostics in the ER revealed sepsis, right lower lobe pneumonia, he was given ceftriaxone and azithromycin in the ER CBC shows white count of 18, lactic acid is normal procalcitonin 0.7. Covid PCR negative. He was treated with Zosyn for Sepsis with community-acquired pneumonia vs aspiration pneumonia. Concern for aspiration pneumonia considering history of esophageal stricture secondary to GERD leukocytosis improved to 12 at discharge. urine antigens and MRSA screen negative CTA negative for PE. He had few episodes of desaturation to 89%, however sister reported this was per his baseline at home. He has a diagnosed sleep apnea, but non compliant with CPAP. He is discharged in improved condition. Physical Exam Narrative: EXAM NARRATIVE: GEN: Awake, alert, no acute distress CVS: S1S2 N RS: CTA B/L except crackles over RUL Abd: Soft, nt/nd , bs+ Discharge Data Data Completed and Pending: Completed Studies During Hospitalization Category Date Time Status CT angio chest PE protcl [id number] Rout ine Cat Scan 05/17/21 14:35 Completed XR chest 1V shu ble [id number] Stat Exams 05/16/21 17:37 Completed Vitals: Last Vital Signs Temp 98.2 F 05/19/21 11:51 Pulse 94 05/19/21 11:51 Resp 18 05/19/21 11:51 BP 129/95 05/19/21 11:51 Pulse Ox 96 05/19/21 12:01 Discharge Plan Discharge Patient Disposition: Home Condition: Stable Prescriptions: New albuterol sulfate 90 mcg/actuation HFA aerosol inhaler 2 inh inhalation Q6H PRN (Reason: shortness of breath or wheezing) Qty: 6.7 RF: 0 Continued alprazolam 0.5 mg tablet 0.5 mg PO TID PRN (Reason: UNKNOWN) RF: 0 levothyroxine 125 mcg capsule 125 mcg PO DAILY@1000 RF: 0 citalopram 40 mg tablet 40 mg PO DAILY@1000 RF: 0 meloxicam 15 mg tablet 15 mg PO DAILY@1000 RF: 0 famotidine 20 mg tablet 20 mg PO BID@1000,2200 RF: 0 tramadol 300 mg tablet extended release 24 hr 300 mg PO DAILY@1000 RF: 0 allopurinol 100 mg tablet 100 mg PO DAILY@1000 RF: 0 colchicine 0.6 mg tablet 0.3 mg PO DAILY@1000 RF: 0 omeprazole 40 mg capsule,delayed release(DR/EC) 40 mg PO DAILY@1000 RF: 0 nystatin 100,000 unit/gram powder See Rx Instructions .ROUTE .COMPLEX RF: 0 Discharge Orders: Discharge Order (Routine); Ordered 05/19/21 Ordered By: Aracelis Mcdonald Referrals: Marina Aguirre [Primary Care Provider] - 05/27/21 11:30 am Discharge Diet: As Directed Discharge Activity: Resume usual activity Patient Instructions: Albuterol (By breathing), Amoxicillin/Clavulanate Potassium (By mouth), Viral Pneumonia (GEN), Aspiration Pneumonia (GEN), Opioid Safety, Pneumonia Stoplight Activity Restrictions/Additional Instructions: Dysphagia stage 3 diet Discharge Attestations Time Spent in Discharge Care*: greater than 30 min Quality Metrics Clinical Quality Measures During this hospital stay, did patient experience: None Coding Level of Care Code Acute [facility] MARTI note Diagnoses Right lower lobe pneumonia J18.9 Pneumonia type: due to unspecified organism Acute respiratory failure with hypoxia J96.01 Sepsis A41.9
== END 2021-05-19 12:45 | disposition home or self-care (01) | DRG 871 ==
LOC: ER 21:53 → MEDSURG 22:27
PROVIDERS: Admitting Provider Internal Medicine; Emergency Provider Physician Assistant; PCP Nurse Practitioner Family; Visit Provider Student in an Organized Health Care Education/Training Program
DX: A41.9 Sepsis, unspecified organism (principal); J69.0 Pneumonitis due to inhalation of food and vomit; J96.01 Acute respiratory failure with hypoxia; Q90.9 Down syndrome, unspecified; E03.9 Hypothyroidism, unspecified; M16.10 Unilateral primary osteoarthritis, unspecified hip; K21.9 Gastro-esophageal reflux disease without esophagitis; K22.2 Esophageal obstruction; M54.16 Radiculopathy, lumbar region; Q67.6 Pectus excavatum; M10.9 Gout, unspecified; G47.30 Sleep apnea, unspecified; Z91.19 Patient's noncompliance with other medical treatment and regimen
CPT/HCPCS: 36415; 71045; 71275; 80048; 80053; 83605; 84145; 85025; 85378; 86140; 86403; 87040; 87426; 87449; 87635; 87641; 87804; 92610; 96365; 96367; 99285; J0456; J0696; J2543; J7050; Q9967

== ENCOUNTER → 2021-10-25 15:20 | Outpatient (BNVA) | payer MEDICARE, MEDICAID, SELFPAY | PROVIDERS: PCP Nurse Practitioner Family; Referring Provider Orthopaedic Surgery; Visit Provider Specialist | DX: M16.0 Bilateral primary osteoarthritis of hip (principal) | CPT/HCPCS: 73523 ==

== ENCOUNTER 2022-07-08 14:34 | Emergency (ER) | payer MEDICARE, MEDICAID, SELFPAY ==
[2022-07-08 14:46] VITALS: BP 104/55; PULSE 103; RESP 22; TEMP 36.8; O2SAT 97; BMI 39.2
--- NOTE | 2022-07-08 15:05 | ECG_ITS ---
[facility] Test Date: 2022-07-08 Pat Name: Deandre Lopez Department: Room: Gender: Male Manager Surgery: : 1985 Requested By: Michael Galicia Order Number: [id number] Margie MD: Francisco Ortega M.D. Measurements Intervals Ney Rate: 97 P: 61 VT: 153 QRS: 66 QRSD: 87 T: 19 QT: 350 QTc: 447 Interpretive Statements SINUS RHYTHM POSSIBLE LEFT ATRIAL ENLARGEMENT [-0.1mV P-WAVE IN V1/V2] LOW QRS VOLTAGE IN PRECORDIAL LEADS [QRS DEFLECTION < 1.0 mV IN CHEST LEADS] No previous ECG available for comparison Electronically Signed On 07-08-2022 17:43:32 CDT by Francisco Ortega M.D. [id number]
--- NOTE | 2022-07-08 15:06 | XRR_ITS ---
PROCEDURE INFORMATION: Exam: XR Left Hip Exam date and time: 07/08/2022 3:25 PM Age: 36 years old Clinical indication: Hip pain; Prior surgery; Surgery date: <1 month; Surgery type: Total left hip replacement 06/08; Additional info: Left hip pain, total left hip replacement 06/08 TECHNIQUE: Imaging protocol: Radiologic exam of the Left hip. Views: 2 or 3 views hip with pelvis when performed. COMPARISON: CR XR hip BI m 5V wo/w pel* [id number] 10/25/2021 3:28 PM FINDINGS: Bones/joints: Intact left total hip arthroplasty in expected alignment. No acute fracture. Soft tissues: Unremarkable. XR/XR hip LT 2-3V wo/w pel* [id number] IMPRESSION: Intact left total hip arthroplasty in expected alignment.
--- NOTE | 2022-07-08 15:06 | XR_ITS ---
WS: [id number] Portable AP upright chest, 07/08/2022 Clinical Data: SOB Comparison: Portable chest, 05/16/2021. Findings: There is a patchy opacity in the right hilum extending into the right upper lobe and right lower lobe which could represent pneumonia. No nodules, masses or effusions are seen. The heart is h ighly enlarged. The pulmonary vascularity is not increased. No pneumothorax is seen. Diaphragms are f lattened. There is a dextroscoliosis. XR/XR chest 1V portable [id number] Impression: 1. Patchy opacity in right hilum extending into right upper lobe and right lowe r lobe which could represent pneumonia and recommend repeat chest x-ray in 2-3 days. 2. Cardiomegaly.
[2022-07-08 16:31] LABS: Basophils # 0.2 10^3/uL (0.0-0.1); Basophils % 1.1 %; Eosinophils # 0.2 10^3/uL (0.0-0.8); Eosinophils % 1.1 %; Hematocrit 33.1 % (42.0-52.0); Hemoglobin 9.7 g/dL (11.7-16.6); Lymphocytes # 1.7 10^3/uL (0.8-4.8); Lymphocytes % 12.1 %; Mean Corpuscular HGB Conc 29.3 g/dL (30.0-36.0); Mean Corpuscular Hemoglobin 26.9 pg (28.0-34.0); Mean Corpuscular Volume 91.9 fl (80-94); Mean Platelet Volume 8.6 fL (7.4-10.4); Monocytes % 7.1 %; Neutrophils # 10.97 10^3/uL (1.8-7.7); Nucleated Red Blood Cells % 0 %; Platelet Count 535 10^3/cmm (130-400); Red Cell Distribution Width 17.6 % (12.1-15.1); White Blood Count 14.1 10^3/uL (4.0-10.0)
[2022-07-08 16:47] VITALS: BP 136/77; PULSE 74; RESP 16; TEMP 36.8; O2SAT 97
[2022-07-08 17:10] LABS: Alanine Aminotransferase 8 U/L (0-41); Albumin Level 3.6 g/dL (3.5-5.2); Alkaline Phosphatase 125 U/L (40-130); Anion Gap 13.6 (5-19); Aspartate Amino Transferase 13 U/L (0-40); Blood Urea Nitrogen 20 mg/dL (6-20); Calcium 8.8 mg/dL (8.5-10.5); Carbon Dioxide 27 mmol/L (22-29); Chloride 99 mmol/L (98-107); Globulin 3.2 g/dL (1.3-4.6); Glomerular Filtration Rate 84.1 mL/min (90-130); Glucose 114 mg/dL (65-115); NT Pro B Type Natriuretic Pept 843 pg/mL (0-125); Osmolality Calculated 283 mOsm/kg (285-295); Potassium 4.6 mmol/L (3.5-5.1); Sodium 135 mmol/L (136-145); Total Bilirubin 0.3 mg/dL (0.15-1.2); Total Protein 6.8 g/dL (6.6-8.7)
--- NOTE | 2022-07-08 18:02 | USR_ITS ---
PROCEDURE INFORMATION: Exam: US Duplex Left Lower Extremity Veins, Limited Exam date and time: 07/08/2022 6:20 PM Age: 36 years old Clinical indication: Swelling (edema) of limb; Lower extremity, left; Prior surgery; Surgery date: 3-7 days post-operative; Surgery type: Lt hip; Additional info: S/P hip surgery with SOB TECHNIQUE: Imaging protocol: Real-time Duplex ultrasound of the Left Lower Extremity with 2-D mariee scale, color Doppler flow and spectral waveform analysis with image documentation. Limited exam focused on the left lower extremity veins. COMPARISON: No relevant prior studies available. FINDINGS: Left deep veins: Unremarkable. The common femoral, femoral, proximal profunda femoral and popliteal veins are patent without thrombus. Normal Doppler waveforms. Normal compressibility and/or augmentation response. Left superficial veins: Unremarkable. Saphenofemoral junction is patent without thrombus. Soft tissues: Unremarkable. US/[place] [id number] IMPRESSION: No evidence of deep vein thrombosis.
--- NOTE | 2022-07-08 18:11 | W.ED.SOB ---
HPI - SOB/Dyspnea General: Chief Complaint: Shortness of Breath/Dyspnea Stated Complaint: SOB leg pain Time Seen by Provider: 07/08/22 17:48 Source: patient and family (mother) Mode of arrival: ambulatory History of Present Illness: HPI Narrative: This patient was transported to the emergency department by his mother. Patient is a trisomy 20 who is cared for by his mother predominantly who has a history of degenerative joint disease of both hips. He recently had a left hip arthroplasty at [facility] and required approximately 1 week post operative hospitalization. He has been in a long-term care facility to continue his rehab. Mother reports that he has been reported to be more wheezy recently. He has been wearing oxygen at night in place of his CPAP which he refuses to wear. He denies any fevers that she is aware of. He is not on any anticoagulants. There is also a history of or question of whether he potentially may have fallen yesterday. He apparently told his mother this but this was not collaborated by the [facility] rehab staff. No known exposure to COVID other than healthcare exposure but did have a negative COVID test at the long-term care [facility] this morning. Mother reports he had been increasing his postoperative ambulation some but today has not wanted to do a whole lot. Pertinent past history: asthma and pneumonia Associated symptoms: Reports extremity pain; Deny abdominal pain, chest pain, fever(s), nausea, palpitations or vomiting Review of Systems Const: Denies: fever(s) or chills Eyes: Denies: change in vision ENMT: Denies: throat pain, odynophagia, nasal congestion or nasal obstruction Card: Denies: chest pain, palpitations or irregular heart rhythm Resp: Reports: wheezing GI: Denies: abdominal pain, nausea or vomiting : Denies: flank pain, difficulty urinating, dysuria or urinary frequency Musc: Reports: extremity pain, joint pain and limited range of motion; Denies: neck pain, back pain or extremity swelling Skin/Breast: Denies: rash PFSH ED PFSH: Medical History Down's syndrome H/O cardiac murmur Hip pain Hypothyroid Lumbar radiculopathy Osteoarthritis Pectus excavatum Surgical History H/O adenoidectomy History of tonsillectomy Status post surgery of both feet Family History Mother Cancer lung cancer Father Cancer lung cancer Brother Suicide Social History Smoking and tobacco status: never smoked Alcohol intake: never History of recent travel: No Physical Exam Narrative: EXAM NARRATIVE: He makes good eye contact. He is alert and cooperative. Const: COMMON NORMALS: no acute distress and healthy appearing GENERAL APPEARANCE: cooperative HENMT: COMMON NORMALS: normocephalic, moist oral mucous membranes and oropharynx normal HEAD & SCALP: normocephalic FACE & SINUS: normal facial exam Eye: COMMON NORMALS: Equal, round and reactive pupils present and EOMs intact bilaterally PUPIL: Yes Equal, round and reactive pupils present Neck/C-Spine: COMMON NORMALS: full ROM and supple Chest: COMMONS NORMALS: normal inspection of the chest and normal palpation of entire chest wall Resp: COMMON NORMALS: normal respiratory effort, No retractions, No use of accessory muscles and clear to auscultation bilaterally AUSCULTATION: clear to auscultation bilaterally Cardio: COMMON NORMALS: regular rate, regular rhythm and Peripheral pulses 2+ throughout RATE: regular rate RHYTHM: regular rhythm HEART SOUNDS: Murmur heart sound present PERIPHERAL PULSES: Peripheral pulses 2+ throughout GI: COMMON NORMALS: Normal to inspection, nondistended, normoactive bowel sounds present, Soft to palpation and non-tender PALPATION: Yes Soft to palpation Back/Pelvis: COMMON NORMALS: thoracic and lumbar spine normal to inspection, no thoracic nor lumbar tenderness and thoraco-lumbar ROM normal PELVIS: Yes no pain with anterior-posterior compression and Yes no pain with lateral compression Extremity: COMMON NORMALS: normal to inspection and capillary refill normal NARRATIVE EXTREMITY EXAM: No obvious deformity or ecchymosis in his left lower extremity. He will actively move and flex his left hip and left knee to approximately 30 degrees at each joint. Some mild edema of the lower extremity but no erythema. Good capillary refill. His right lower extremity is unremarkable with normal range of motion and no swelling ecchymosis etc. Neuro: COMMON NORMALS: moves all extremities Course Reevaluation(s): Reevaluation #1: Patient's history as well as elevated D-dimer make proceeding to a CTA to ensure no pulmonary embolus the next step despite his negative venous Doppler. Time: 19:14 Reevaluation #2: CTA is reassuring for no evidence of pulmonary embolus. Does have some areas of consolidation noted both on his plain films as well as my review of his CT makes me concerned that he may be developing a lower respiratory infection causing some of his respiratory symptoms. Certainly able to be treated as an outpatient. I discussed this with the mother who is agreeable to this plan. He has no evidence of a fracture, disruption of his prosthesis or other issues at this time. Suspect that some of his poor progress is related to his limited understanding of the need to can keep active despite being uncomfortable at times. He is can to continue to have physical therapy at the rehab facility and I have advised the mother that he should be reevaluated if he continues to be reluctant to engage in activity or has increasing pain or other concerns. Time: 20:47 Vital Signs: Vital signs: Vital Signs Temperature 98.3 F 07/08/22 16:47 Pulse Rate 97 07/08/22 19:26 Respiratory Rate 17 07/08/22 19:26 Blood Pressure 131/72 07/08/22 19:26 Pulse Oximetry 100 07/08/22 19:26 Oxygen Delivery Me thod 07/08/22 19:26 Oxygen Flow Rate 2 07/08/22 14:46 MDM - SOB/Dyspnea Medical Decision Making Trisomy 21 patient brought to the emergency department because of concerns about pain in his left hip status post recent arthroplasty as well as some respiratory symptoms over the past several days. Findings today both clinically as well as ancillary studies support no evidence of fracture or distal disruption of his prosthesis. He does have findings that suggest possible pneumonitis or lower respiratory infection rather than something as worrisome as pulmonary embolus etc. Plan will be to begin empiric antibiotics with close follow-up. Mother was agreeable to the plan of care. Medical Records I reviewed the patient's medical records. Lab Data I reviewed the patient's lab results. : 07/08/22 16:22 07/08/22 16:22 Labs/Radiology: Radiology Impressions Chest X-Ray 07/08/22 15:06 Impression: 1. Patchy opacity in right hilum extending into right upper lobe and right lower lobe which could represent pneumonia and recommend repeat chest x-ray in 2-3 days. 2. Cardiomegaly. Hip/Pelvis X-Ray 07/08/22 15:06 IMPRESSION: Intact left total hip arthroplasty in expected alignment. Venous Duplex 07/08/22 18:02 IMPRESSION: No evidence of deep vein thrombosis. Chest CTA 07/08/22 19:14 IMPRESSION: No evidence of pulmonary embolism. Scattered areas of curvilinear atelectasis in the perihilar regions and posterior lungs. Laboratory Results WBC 14.1 10^3/uL (4.0-10.0) H 07/08/22 16:22 RBC 3.60 10^6/uL (4.1-5.3) L 07/08/22 16:22 Hgb 9.7 g/dL (11.7-16.6) L 07/08/22 16:22 Hct 33.1 % (42.0-52.0) L 07/08/22 16:22 MCV 91.9 fl (80-94) 07/08/22 16:22 MCH 26.9 pg (28.0-34.0) L 07/08/22 16:22 MCHC 29.3 g/dL (30.0-36.0) L 07/08/22 16:22 RDW 17.6 % (12.1-15.1) H 07/08/22 16:22 Plt Count 535 10^3/cmm (130-400) H 07/08/22 16:22 MPV 8.6 fL (7.4-10.4) 07/08/22 16: Neut % (Auto) 78.0 % 07/08/22 16: Lymph % (Auto) 12.1 % 07/08/22 16:22 [place] % (Auto) 7.1 % 07/08/22 16:22 Eos % (Auto) 1.1 % 07/08/22 16:22 Baso % (Auto) 1.1 % 07/08/22 16: Neut # (Auto) 10.97 10^3/uL (1.8-7.7) H 07/08/22 16:22 Lymph # (Auto) 1.7 10^3/uL (0.8-4.8) 07/08/22 16:22 [place] # (Auto) 1.0 10^3/uL (0.2-0.9) H 07/08/22 16:22 Eos # (Auto) 0.2 10^3/uL (0.0-0.8) 07/08/22 16:22 Baso # (Auto) 0.2 10^3/uL (0.0-0.1) H 07/08/22 16:22 Nucleated RBC % (auto) 0 % 07/08/22 16:22 Nucleated RBCs # 0.0 /100WBC 07/08/22 16:22 D-Dimer 2.48 ug/mIFEU (0-0.59) H 07/08/22 15:38 Sodium 135 mmol/L (136-145) L 07/08/22 16:22 Potassium 4.6 mmol/L (3.5-5.1) 07/08/22 16:22 Chloride 99 mmol/L (98-107) 07/08/22 16:22 Carbon Dioxide 27 mmol/L (22-29) 07/08/22 16:22 Anion Gap 13.6 (5-19) 07/08/22 16:22 BUN 20 mg/dL (6-20) 07/08/22 16:22 Creatinine 1.0 mg/dL (0.7-1.2) 07/08/22 16:22 GFR Calculation 84.1 mL/min (90-130) L 07/08/22 16:22 Glucose 114 mg/dL (65-115) 07/08/22 16:22 Calculated Osmolality 283 mOsm/kg (285-295) L 07/08/22 16:22 Calcium 8.8 mg/dL (8.5-10.5) 07/08/22 16:22 Total Bilirubin 0.3 mg/dL (0.15-1.2) 07/08/22 16:22 AST 13 U/L (0-40) 07/08/22 16:22 ALT 8 U/L (0-41) 07/08/22 16:22 Alkaline Phosphatase 125 U/L (40-130) 07/08/22 16:22 NT-Pro-B Natriuret Pep 843 pg/mL (0-125) H 07/08/22 16:22 Total Protein 6.8 g/dL (6.6-8.7) 07/08/22 16:22 Albumin 3.6 g/dL (3.5-5.2) 07/08/22 16:22 Globulin 3.2 g/dL (1.3-4.6) 07/08/22 16:22 Discharge Plan Discharge Patient Disposition: Home Clinical Impression: Pneumonia, History of arthroplasty of left hip Condition: Stable Prescriptions: New doxycycline hyclate 100 mg capsule 100 mg PO BID 7 Days Qty: 14 0RF No Action alprazolam 0.5 mg tablet 0.5 mg PO TID PRN (Reason: UNKNOWN) citalopram 40 mg tablet 40 mg PO DAILY@1000 meloxicam 15 mg tablet 15 mg PO DAILY@1000 famotidine 20 mg tablet 20 mg PO BID@1000,2200 tramadol 300 mg tablet extended release 24 hr 300 mg PO DAILY@1000 allopurinol 100 mg tablet 100 mg PO DAILY@1000 omeprazole 40 mg capsule,delayed release(DR/EC) 40 mg PO DAILY@1000 levothyroxine 125 mcg capsule 137 mcg PO DAILY@1000 colchicine 0.6 mg tablet 0.6 mg PO DAILY@1000 nystatin 100,000 unit/gram powder See Rx Instructions .ROUTE .COMPLEX Rx Instructions: APPLY TOPICALLY TO AFFECTED AREA BID. albuterol sulfate 90 mcg/actuation HFA aerosol inhaler 2 inh inhalation Q6H PRN (Reason: shortness of breath or wheezing) Qty: 6.7 0RF Discharge Orders: Discharge ED (Routine); Ordered 07/08/22 Ordered By: Lex Ugarte Referrals: Marina Aguirre [Primary Care Provider] - Discharge Diet: Usual diet Discharge Activity: Limit activity as instructed, As per PT/OT instructions and Oxygen as instructed Patient Instructions: Opioid Safety Activity Restrictions/Additional Instructions: Continue usual medications as well as use of CPAP as well as nebulizer and inhalers. Continue the antibiotics prescribed in the emergency department for the next week. Continue with physical therapy and rehab for your hip. Should he develop worsening symptoms such as high fevers, increasing shortness of breath, increasing complaints of pain or inability to use left hip and leg return to this or the nearest emergency department for reevaluation. Coding Level of Care Code ED Sponsorship Manager for Nery Alicia Exam Comprehensive
[2022-07-08 18:27] LABS: D Dimer 2.48 ug/mIFEU (0-0.59)
--- NOTE | 2022-07-08 19:14 | CTR_ITS ---
PROCEDURE INFORMATION: Exam: CTA Chest With Contrast Exam date and time: 07/08/2022 7:56 PM Age: 36 years old Clinical indication: Other: S/P hip surg x 1 mon, new dyspnea; Additional info: Elevated dimer; S/P left hip surgery TECHNIQUE: Imaging protocol: Computed tomographic angiography of the chest with contrast. 3D rendering (Not supervised by radiologist): MIP and/or 3D reconstructed images were created by the technologist. Radiation optimization: All CT scans at this facility use at least one of these dose optimization techniques: automated exposure control; mA and/or kV adjustment per patient size (includes targeted exams where dose is matched to clinical indication); or iterative reconstruction. Contrast material: OMNI 350; Contrast volume: 95 ml; Contrast route: INTRAVENOUS (IV); COMPARISON: CT angio chest PE protcl [id number] 05/17/2021 3:50 PM RADIATION DOSE METRICS: Total DLP (mGy-cm): 493.42 FINDINGS: Limitations: Please note, there is extensive respiratory motion artifact on exam which limits fine detailed evaluation of the lung parenchyma. Pulmonary arteries: No filling defects seen within the pulmonary arteries. Please note, evaluation of the subsegmental branches are limited due to motion artifact. Aorta: Unremarkable. No aortic aneurysm. No aortic dissection. Lungs: Scattered areas of curvilinear atelectasis in the perihilar regions and posterior lungs. No consolidation. No masses. Pleural spaces: Unremarkable. No pneumothorax. No pleural effusion. Heart: Cardiomegaly. No pericardial effusion. Lymph nodes: Unremarkable. No enlarged lymph nodes. Bones/joints: No acute fracture. Soft tissues: Unremarkable. CT/CT angio chest PE protcl [id number] IMPRESSION: No evidence of pulmonary embolism. Scattered areas of curvilinear atelectasis in the perihilar regions and posterior lungs.
[2022-07-08 19:26] VITALS: BP 131/72; PULSE 97; RESP 17; O2SAT 100
[2022-07-08] MEDS: iohexol 350 mg/mL 100 mL Btl IV (20:03)
[2022-07-08] MEDS: HYDROcodone-acetaminophen 5-325 mg Tablet 1 TAB PO (20:51)
[2022-07-08] MEDS: cefTRIAXone 1,000 MG in sodium chloride 0.9% (plus) 50 ML 100 MG IV (20:53)
[2022-07-08 21:37] VITALS: BP 131/72; PULSE 98; RESP 17; TEMP 36.7; O2SAT 99
--- NOTE | 2022-07-08 21:38 | PC.NURSE ---
Discharge instructions reviewed with patient and patient's mom, including prescription and follow up appointment, int dc'd and patient tolerated well. Report called to Cecelia at facility
[2022-07-08 21:40] VITALS: BP 131/72; PULSE 17; RESP 98; TEMP 36.7; O2SAT 99
== END 2022-07-08 21:49 | disposition home or self-care (01) ==
PROVIDERS: Emergency Medicine; Emergency Provider Emergency Medicine; PCP Nurse Practitioner Family
DX: J18.9 Pneumonia, unspecified organism (principal); Z96.642 Presence of left artificial hip joint; Q90.9 Down syndrome, unspecified; M79.605 Pain in left leg
CPT/HCPCS: 36415; 71045; 71275; 73502; 80053; 83880; 85025; 85378; 93005; 93971; 96374; 99285; J0696; Q9967

== ENCOUNTER 2022-07-15 20:51 | Inpatient (IN) | payer MEDICARE, MEDICAID, SELFPAY ==
[2022-07-15] VITALS (38 sets, daily range): BP systolic 113–154; BP diastolic 61–103; PULSE 94–115; RESP 0–47; O2SAT 83–99; BMI 42.7
--- NOTE | 2022-07-15 21:19 | ECG_ITS ---
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 Measurements Intervals [place] Rate: 95 P: 55 OR: 164 QRS: 69 QRSD: 89 T: 24 QT: 371 QTc: 468 Interpretive Statements SINUS RHYTHM LEFT ATRIAL ENLARGEMENT [-0.15mV P-WAVE IN V1/V2] LOW QRS VOLTAGE IN PRECORDIAL LEADS [QRS DEFLECTION < 1.0 mV IN CHEST LEADS] Compared to ECG 07/08/2022 15:11:59 No significant changes Electronically Signed On 07-16-2022 9:24:40 CDT by Bharath Urrutia M.D. [email or web address]
--- NOTE | 2022-07-15 21:20 | XRR_ITS ---
PROCEDURE INFORMATION: Exam: XR Chest Exam date and time: 07/15/2022 9:43 PM Age: 36 years old Clinical indication: Shortness of breath; Additional info: SOB TECHNIQUE: Imaging protocol: Radiologic exam of the chest. Views: 1 view. COMPARISON: CR XR chest 1V portable [id number] 07/08/2022 3:18 PM FINDINGS: Lungs: Bilateral airspace infiltrates. Pleural spaces: Small bilateral pleural effusions. Heart/Mediastinum: Cardiomegaly. Bones/joints: Unremarkable. XR/XR chest 1V portable [id number] IMPRESSION: 1. Bilateral airspace infiltrates. 2. Small bilateral pleural effusions. 3. Cardiomegaly.
[2022-07-15 21:22] LABS: ABG PH Result 7.35 (7.35-7.45); Base Excess ABG 6.6 mmol/L (-2.0-2.0); Blood Gas Allen Test Pos; Blood Gas Sample Site Radial, right; Blood Gas Sample Type Arterial; HCO3 ABG 33.5 mmol/L (22-26); Oxygen Device BIPAP
[2022-07-15 21:24] LABS: ABG PCO2 60.5 mmHg (35-45)
[2022-07-15] MEDS: budesonide 0.5 mg/2 mL Neb INHALATION (21:40)
--- NOTE | 2022-07-15 21:54 | PC.NURSE ---
Vial of lasix dropped and broke. Second vial removed from pyxis.
[2022-07-15] MEDS: magnesium sulfate premix 2 GM/50 ML PIGGYBACK IV (22:05)
[2022-07-15] MEDS: enoxaparin 40 mg/0.4 mL Syringe SUBCUT (22:05)
[2022-07-15] MEDS: FUROsemide 10 mg/mL SDV 4mL 40 MG IVP (22:06)
[2022-07-15 22:32] LABS: Basophils # 0.1 10^3/uL (0.0-0.1); Basophils % 0.6 %; Hematocrit 32.9 % (42.0-52.0); Hemoglobin 9.7 g/dL (11.7-16.6); Lymphocytes # 0.5 10^3/uL (0.8-4.8); Lymphocytes % 4.5 %; Mean Corpuscular HGB Conc 29.5 g/dL (30.0-36.0); Mean Corpuscular Hemoglobin 26.2 pg (28.0-34.0); Mean Corpuscular Volume 88.9 fl (80-94); Mean Platelet Volume 9.4 fL (7.4-10.4); Monocytes # 0.1 10^3/uL (0.2-0.9); Monocytes % 1.4 %; Neutrophils % 92.2 %; Nucleated Red Blood Cells % 0.2 %; Platelet Count 553 10^3/cmm (130-400); Red Cell Distribution Width 18.9 % (12.1-15.1)
[2022-07-15 22:42] LABS: Lactate (Lactic Acid level) 1.2 mmol/L (0.5-2.2)
[2022-07-15 22:47] LABS: Troponin(5th) Baseline 31 ng/L (0-15)
[2022-07-15 22:50] LABS: Estmated Average Glucose 97
[2022-07-15 22:54] LABS: NT Pro B Type Natriuretic Pept 737 pg/mL (0-125); Procalcitonin 0.17 ng/mL (0-0.5); Thyroid Stimulating Hormone 0.56 uIU/mL (0.27-4.20)
[2022-07-15 23:06] LABS: Alanine Aminotransferase 11 U/L (0-41); Albumin Level 3.6 g/dL (3.5-5.2); Alkaline Phosphatase 118 U/L (40-130); Anion Gap 17.7 (5-19); Aspartate Amino Transferase 19 U/L (0-40); Blood Urea Nitrogen 15 mg/dL (6-20); C Reactive Protein 60.8 mg/L (0.0-4.9); Calcium 8.8 mg/dL (8.5-10.5); Carbon Dioxide 27 mmol/L (22-29); Chloride 98 mmol/L (98-107); Chol HDL Ratio 2.91 mg/dL (1.0-5.00); Cholesterol 160 mg/dL (0-200); Globulin 3.3 g/dL (1.3-4.6); Glucose 153 mg/dL (65-115); HDL Cholesterol 55 mg/dL (60-100); LDL Cholesterol Calculated 97 mg/dL (50-129); LDL HDL Ratio 1.76 RATIO (0.00-3.22); Osmolality Calculated 290 mOsm/kg (285-295); Potassium 4.7 mmol/L (3.5-5.1); Sodium 138 mmol/L (136-145); Total Bilirubin 0.3 mg/dL (0.15-1.2); Total Protein 6.9 g/dL (6.6-8.7); Triglycerides 39 mg/dL (0-150)
[2022-07-15] MEDS: dexmedeTOMIDine 0.9 % NaCL 400 MCG/100 ML PREMIX IV (23:12)
--- NOTE | 2022-07-15 23:12 | PM.HP ---
Providers/Chief Complaint Admitting Physician: Golden Gavin MD Primary Care Provider: Marina Aguirre History of Present Illness Deandre Lopez is a 36 year old male with a past medical history of Down syndrome, hypothyroidism, recent history of left hip replacement, anxiety, emphysema, GERD, gout, recently had hip surgery in May, mother tells me that for his hip replacement, they tried a spinal which was unsuccessful, and they proceeded with an intubation, after 5 attempts, he finally got an intubation was difficult, and he had to be kept on the ventilator for roughly 24 hours for upper airway swelling. He currently is at a alf for rehab, he ambulates with a walker, mom tells me that he has been complaining of increased shortness of breath for the last few days, no calf pain, no calf swelling, no hemoptysis, no sudden onset shortness of breath, he was given antibiotics for pneumonia roughly a week ago, family tells me has been coarsely wheezing, no history of asthma. Patient initially was at [facility], had evidence of respiratory distress there was placed on BiPAP after he came back from [place] due to mild respiratory distress, he improved and transition to nasal cannula, was diuresed, and clinically improved. Hospitalist team at [facility] was called for transfer, on arrival to the second floor the hospital, patient was on a nonrebreather, with diffuse wheezing, intercostal subcostal retractions, belly breathing, mild respiratory distress, alert oriented. Due to concerns for respiratory compromise, I moved him down to the ICU for close monitoring, he is received magnesium, budesonide, ipratropium, placed on BiPAP. His ABG d does show hypercarbia PCO2 60.5, no significant acidosis, his PO2 is 100 on 65%. Family was at bedside, he is a difficult to arouse, does open his eyes, but falls back asleep. Does not follow commands, he is tolerating BiPAP well, but less arousable. I discussed with family members at bedside, his healthcare power of florist supplies salesperson was at bedside, I discussed that currently he is tolerating BiPAP well, his ABG on BiPAP to show hypercarbia which I hope will get improved repeat ABG in a few hours. His blood work is currently is relatively unremarkable, his chest x-ray does show some infiltrates (antibiotics. He has received steroids I will give him more fluids, budesonide and ipratropium, magnesium. Currently hemodynamically stable, tachycardic. Patient's healthcare power of florist supplies salesperson tells me that he becomes very anxious, during my examination on the second floor, patient was very anxious, he was alert to person, to place, not to time, following commands, but, very anxious, hyper respirating. She tells me that typically when he gets very anxious he starts to display symptoms such as as those we see in front of us now. I did discuss that if patient's clinical status worsens, or his ABG worsens, then we will have to proceed with intubation, given his prior history of difficult to patients, it does carry significant morbidity mortality. He might require cricoid ectomy which carries significant morbidity and mortality. I advised patient's healthcare power of florist supplies salesperson will do the best we can, she wants to have patient remain a full code Review of Systems Card: Denies: chest pain Resp: Reports: dyspnea Medications/Allergies Home Medications Medication Instructions Recorded Confirmed Last Taken Type allopurinol 100 mg tablet 100 mg PO DAILY@1000 02/26/21 10/25/21 05/16/21 History alprazolam 0.5 mg tablet 0.5 mg PO TID PRN UNKNOWN 02/26/21 10/25/21 Unknown History citalopram 40 mg tablet 40 mg PO DAILY@1000 02/26/21 10/25/21 05/16/21 History famotidine 20 mg tablet 20 mg PO BID@1000,2200 02/26/21 10/25/21 05/16/21 History meloxicam 15 mg tablet 15 mg PO DAILY@1000 02/26/21 10/25/21 05/16/21 History omeprazole 40 mg capsule,delayed 40 mg PO DAILY@1000 02/26/21 10/25/21 05/16/21 History release tramadol 300 mg tablet,extended 300 mg PO DAILY@1000 02/26/21 10/25/21 05/16/21 History release 24 hr nystatin 100,000 unit/gram topical See Rx Instructions .Route .COMPLEX 05/17/21 10/25/21 05/16/21 History powder albuterol sulfate 90 mcg/actuation 2 inh inhalation Q6H PRN shortness 05/19/21 10/25/21 Unknown Rx aerosol inhaler of breath or wheezing #6.7 grams colchicine 0.6 mg tablet 0.6 mg PO DAILY@1000 10/25/21 10/25/21 Unknown History levothyroxine 125 mcg capsule 137 mcg PO DAILY@1000 10/25/21 10/25/21 Unknown History Allergies Allergy/AdvReac Type Severity Reaction Status Date / Time No Known Allergies Allergy Verified 10/25/21 15:24 PFSH Acute PFSH: Medical History Down's syndrome H/O cardiac murmur Hip pain Hypothyroid Lumbar radiculopathy Osteoarthritis Pectus excavatum Surgical History H/O adenoidectomy History of tonsillectomy Status post surgery of both feet Family History Mother Cancer lung cancer Father Cancer lung cancer Brother Suicide Social History Smoking and tobacco status: never smoked Alcohol intake: never History of recent travel: No Vitals/I&O/Wt Last Vital Signs Pulse 110 H 07/15/22 21:42 Resp 30 H 07/15/22 21:42 Pulse Ox 93 07/15/22 21:42 O2 Del Method 07/15/22 21:42 FiO2 55 07/15/22 21:42 Weight last 48 hrs Weight 96.162 kg Weight 96.071 kg Physical Exam Narrative: Alert to person, to place, not to time, now has become much more drowsy, less arousable, opens his eyes Const: COMMON NORMALS: no acute distress HENMT: COMMON NORMALS: normocephalic HEAD & SCALP: normocephalic Eye: COMMON NORMALS: Equal, round and reactive pupils present Neck/C-Spine: COMMON NORMALS: no JVD Resp: OTHER: Mild distress, intercostal retractions, suprasternal retractions, tachypneic, belly breathing, nasal flaring Diffuse wheezing in all lung de dios Cardio: COMMON NORMALS: no JVD, regular rate, regular rhythm, S1 normal heart sound present and S2 normal heart sound present RATE: regular rate and tachycardic RHYTHM: regular rhythm HEART SOUNDS: S1 normal heart sound present and S2 normal heart sound present GI: COMMON NORMALS: Normal to inspection, nondistended, normoactive bowel sounds present, Soft to palpation, non-tender, No hepatosplenomegaly present, no masses and no bruits PALPATION: Yes Soft to palpation and Yes No hepatosplenomegaly present Extremity: COMMON NORMALS: capillary refill normal, no clubbing, cyanosis or edema, no calf tenderness and no pedal edema Psych: COMMON NORMALS: mental status grossly normal Data : 07/15/22 22:12 07/15/22 22:12 Micro: Microbiology 07/15/22 22:14 Blood Culture - Preliminary Blood SPECIMEN COLLECTED 07/15/22 22:12 Blood Culture - Preliminary Blood SPECIMEN COLLECTED A&P Assessment and plan (1) Acute respiratory failure with hypoxia: Status: Acute (2) Pneumonia: Status: Acute Plan Acute hypoxic respiratory failure -Likely secondary to hyper respiration, hypercarbia -He is behaving somewhat like an asthmatic, will give him inhaler therapy steroid therapy, magnesium -CT angiogram of the chest done at outside facility showed mild cardiomegaly, pulmonary congestion, -However our chest x-ray does show infiltrates -Left lower extremity negative for DVT Plan -Currently admitted to ICU -Monitor respiratory status closely -BiPAP therapy -Magnesium for shortness of breath -Monitor ABGs -Monitor respiratory distress -Ipratropium, budesonide -Solu-Medrol -Vancomycin, Zosyn -Precedex drips for anxiety -We will give another dose of Lasix -Cardiac echo -Currently status is critical, prognosis is guarded -He might require intubation in the next few hours we will monitor his respiratory status closely, prepare intubation and cricoid ectomy materials if needed, available at bedside Attestations Medical Necessity Statement*: Patient requires hospitalization due to acute hypoxic respiratory failure, hypercarbic respiratory failure Coding Level of Care Code Acute Ethylbenzene Converter Operator for [facility]avin Diagnoses Acute respiratory failure with hypoxia J96.01 Pneumonia J18.9
--- NOTE | 2022-07-15 23:19 | ECG_ITS ---
[facility] Test Date: 2022-07-16 Pat Name: Deandre Lopez Department: Room: [facility] Gender: Male Travel Journalist: : 1985 Requested By: Golden Gavin Order Number: [id number] Margie MD: Bharath Urrutia M.D. Measurements Intervals [place] Rate: 86 P: 59 TN: 170 QRS: 70 QRSD: 92 T: 36 QT: 386 QTc: 463 Interpretive Statements SINUS RHYTHM POSSIBLE LEFT ATRIAL ENLARGEMENT [-0.1mV P-WAVE IN V1/V2] LOW QRS VOLTAGE IN PRECORDIAL LEADS [QRS DEFLECTION < 1.0 mV IN CHEST LEADS] Compared to ECG 07/15/2022 22:48:28 No significant changes Electronically Signed On 07-16-2022 9:28:35 CDT by Bharath Urrutia M.D. [email or web address]
--- NOTE | 2022-07-15 23:21 | PC.PHAR ---
Pharmacokinetic dosing service Date: 07/15/22 Time: 2320 Objective: Patient: Deandre Lopez Floor: ICU-2 Age: 36 yo Serum creatinine: 0.9 mg/dL Height: 59.0 Inches Weight (kg): 96.162 Diagnosis: Relevant medical/social history: Cultures and sensitivities: Other labs: Assessment: IBW (kg): 49.17 Dosing wt(kg): 96.162 Estimated Creatinine clearance (ml/min): 78.2 CRCL method: Cockcroft and Gault using ibw(default). Drug selected: Vancomycin Loading dose (mg): 0 Vd (liters): 86.5 (factor used: 0.9 L/kg) Navin (hr-1): 0.069 Half life (hrs): 10.05 Recommended dose: 2000 mg Interval: 12 hrs Infusion time (hrs): 1.5 Predicted peak (mcg/mL): 39.0 Predicted trough (mcg/mL): 18.90 Total body weight is being used for vancomycin dosing. Renal function is stable [ ] /unstable [ ] Recommendations: Give Vancomycin 2000 mg q 12 hrs with an expected Cpeak of 39.0 mcg/ml and an expected Ctrough of 18.90 mcg/ml Renal dosing of other antibiotics (review renal dosing of other medications and list guidelines here): Thank you for the consult, will continue to follow. Signature: Nuria Vela Formerly [facility]
[2022-07-16] VITALS (102 sets, daily range): BP systolic 98–161; BP diastolic 45–86; PULSE 67–106; RESP 4–34; TEMP 36.5–36.6; O2SAT 88–99
[2022-07-16] MEDS: ipratropium-albuterol 3 mL Neb INHALATION ×7 (00:45→23:20)
[2022-07-16 00:48] LABS: Troponin 5 2HR 33.56 ng/L (0-15)
[2022-07-16 00:58] LABS: Troponin 5 2HR Delta 2.56 ABS# (0-10)
[2022-07-16 02:17] LABS: ABG PCO2 48.5 mmHg (35-45); ABG PH Result 7.44 (7.35-7.45); Arterial Blood Gas Hematocrit 28.1 % (42-52); Base Excess ABG 7.7 mmol/L (-2.0-2.0); Blood Gas Allen Test Pos; Blood Gas Sample Site Radial, right; Blood Gas Sample Type Arterial; HCO3 ABG 32.8 mmol/L (22-26); Oxygen Device BIPAP; PO2 ABG 81.5 mmHg (80.0-100.0)
--- NOTE | 2022-07-16 03:41 | PHA.FALL ---
A Pharmacy Consult Was Conducted For Deandre Lopez Due To: Daniel Fall Scale Risk Level: High Fall Risk On 07/15/22 21:11 And A Medication Fall Risk Score Greater Than 10. The Recommendations Are As Follows: Citalopram NING: 1,3,4,7,8,10 Famotidine NING: 1,4,8 Meloxicam NING: 1,2,3,4,7,8,11 Tramadol NING: 1,2,3,4,5,6,7,8,9,10 Medications which cause/contribute to: 1= sedation/fatigue/lethargy 2= decreased alertness 3= postural/orthostatic hypotension 4= dizziness 5= decreased neuromuscular function/ataxia 6=decreased memory/cognitive impairment 7= blurred vision 8= confusion 9= arrhythmias 10= syncope 11= anemia
[2022-07-16] MEDS: piperacillin-tazobactam 3.375 GM in sodium chloride 0.9% (plus) 50 ML IV ×3 (03:55→17:39)
[2022-07-16 04:15] LABS: Troponin 5 6HR 28.12 ng/L (0-15)
[2022-07-16 04:18] LABS: Troponin 5 6HR Delta -2.88 ng/L (0-12)
[2022-07-16 04:30] LABS: NT Pro B Type Natriuretic Pept 719 pg/mL (0-125)
--- NOTE | 2022-07-16 04:31 | ECG_ITS ---
[facility] Test Date: 2022-07-16 Pat Name: Deandre Lopez Department: Room: [facility] Gender: Male Value Advisor: : 1985 Requested By: Golden Gavin Order Number: [id number] Margie MD: Bharath Urrutia M.D. Measurements Intervals [place] Rate: 79 P: 59 KS: 169 QRS: 71 QRSD: 92 T: 37 QT: 395 QTc: 453 Interpretive Statements SINUS RHYTHM POSSIBLE LEFT ATRIAL ENLARGEMENT [-0.1mV P-WAVE IN V1/V2] LOW QRS VOLTAGE IN PRECORDIAL LEADS [QRS DEFLECTION < 1.0 mV IN CHEST LEADS] Compared to ECG 07/16/2022 02:46:50 No significant changes Electronically Signed On 07-16-2022 9:29:54 CDT by Bharath Urrutia M.D. [email or web address]
[2022-07-16] MEDS: FUROsemide 10 mg/mL SDV 4mL 40 MG IVP (07:24)
[2022-07-16] MEDS: budesonide 0.5 mg/2 mL Neb INHALATION ×2 (07:50→19:43)
--- NOTE | 2022-07-16 09:37 | PC.NURSE ---
Dr. Stratton at bedside, gaol is to try NC around noon and get off bipap
[2022-07-16] MEDS: citalopram 20 mg Tablet 40 MG PO (09:54)
[2022-07-16] MEDS: levothyroxine 137 mcg Tablet PO (09:54)
--- NOTE | 2022-07-16 13:43 | P.PN_ITS ---
Subjective Subjective: Patient came to this hospital for CHF exacerbation Currently he is on BiPAP I requested another ABG which showed improvement, will give him a break to let him eat Echo inconclusive I might request cardiology for transesophageal echo if he is able to lay flat Continue diuresis for now, BiPAP on as needed basis Nurses are aware Patient is awake and alert Clinically looks fluid overloaded Dry mucous membranes Vitals/I&O/Wt Last Vital Signs Temp 97.7 F 07/16/22 04:00 Pulse 67 07/16/22 11:23 Resp 14 07/16/22 11:10 BP 106/52 07/16/22 07:30 Pulse Ox 94 07/16/22 11:23 O2 Del Method 07/16/22 11:10 FiO2 40 07/16/22 11:23 07/15/22 07/16/22 07/16/22 22:59 06:59 14:59 Intake Total 500 / 500 50 / 50 Output Total 1550 / 1550 650 / 650 Balance -1050 / -1050 -600 / -600 Weight last 48 hrs Weight 96.162 kg Weight 96.071 kg Physical Exam Narrative: Patient is awake and alert able to answer few question Clinically looks fluid overloaded he has dry mucous membranes because of BiPAP Able to follow commands Lymphedema Abdomen soft EOMI, PERRLA Slightly drowsy otherwise verbally redirectable S1, S2 Distended abdomen soft nontender Data : 07/15/22 22:12 07/15/22 22:12 Micro: Microbiology 07/15/22 22:14 Blood Culture - Preliminary Blood SPECIMEN COLLECTED 07/15/22 22:12 Blood Culture - Preliminary Blood SPECIMEN COLLECTED A&P Assessment and plan (1) Acute respiratory failure with hypoxia: Status: Acute (2) 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: Status: Acute (3) Acute exacerbation of CHF (congestive heart failure): Status: Acute Plan Acute CHF exacerbation EF is unknown Seems to have history of sleep apnea Which can cause diastolic heart failure Aggressive diuresis for now Repeat x-ray tomorrow morning Goal diuresis more than 5000 mL in a day Acute hypoxia due to CHF exacerbation Will request D-dimer Check procalcitonin and CRP No leukocytosis I will continue broad-spectrum antibiotics for now I do believe his bilateral infiltrates are CHF exacerbation BiPAP as needed use Monitor in ICU for now Is full code Cardiac diet Might request cardiology for transesophageal echo to know about his cardiac condition and EF As per the report patient was recently admitted to [facility] for hip intervention Venous Doppler ruled out DVT Attestations Medical Necessity Statement*: Continue ICU management Time Spent in Patient Care: 30 Coding Level of Care Code Acute Button Decorating Machine Operator for Nery Fwsana Diagnoses Acute respiratory failure with hypoxia J96.01 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
[2022-07-16 15:43] LABS: D Dimer 1.98 ug/mIFEU (0-0.59)
[2022-07-16 17:05] LABS: C Reactive Protein 55.2 mg/L (0.0-4.9)
[2022-07-16 17:13] LABS: Procalcitonin 0.19 ng/mL (0-0.5)
[2022-07-16] MEDS: FUROsemide 10 mg/mL SDV 10mL 60 MG IVP (17:39)
[2022-07-16 18:41] LABS: SARS Covid-2 Antigen Negative (Negative)
[2022-07-16] MEDS: dexmedeTOMIDine 0.9 % NaCL 400 MCG/100 ML PREMIX IV (19:29)
[2022-07-16] MEDS: enoxaparin 40 mg/0.4 mL Syringe SUBCUT (20:37)
--- NOTE | 2022-07-16 21:22 | USCV_ITS ---
Deandre Lopez Age: 36 Gender: M : 1985 Exam Date: 07/16/2022 07:19 Ordering Phys: Golden Gavin MD Technologist: TORSTEN [place]am Location[place] [facility] [place] Indication: SHORTNESS OF BREATH BP: 106 / 52 HR: 94 Rhythm: Sinus Technical Quality: Technically difficult study MEASUREMENTS (Male / Female) Normal Values 2D ECHO LA Width 3.3 cm LA Height 4.0 cm RA Width 3.3 cm RA Height 4.4 cm DOPPLER AV Peak Velocity 200.3 cm/s LVOT Peak Velocity 103.0 cm/s MV Peak Velocity 130.0 cm/s MV Area PHT 3.5 cm squared Mitral E to A Ratio 1.1 MV E' Velocity 96.0 cm/s TV Peak E Velocity 68.0 cm/s Right Atrial Pressure 8.0 mmHg FINDINGS Left Ventricle This is a nearly uninterpretable echo. There is very little imaging in the apical view only. The left ventricle is probably normal in size and function but 1 cannot make any specific comments regarding wall motion disturbances or ejection fraction. Diastolic function not evaluated. Right Ventricle Right ventricle not well visualized. Right Atrium Right atrium not well visualized. Left Atrium Left atrium not well visualized. Mitral Valve Mitral valve not well visualized. Aortic Valve Aortic valve not well visualized. Tricuspid Valve Tricuspid valve not well visualized. Pulmonic Valve Pulmonic valve not well visualized. Pericardium Normal pericardium without effusion. Aorta Aorta not well visualized. IVC Inferior vena cava not visualized. CONCLUSIONS This is a nearly uninterpretable echo. There is very little imaging in the apical view only. The left ventricle is probably normal in size and function but 1 cannot make any specific comments regarding wall motion disturbances or ejection fraction. Diastolic function not evaluated. Dr. Bharath Urrutia MD (Electronically Signed) Final Date: 16 July 2022 09:07 S
[2022-07-17] VITALS (52 sets, daily range): BP systolic 94–140; BP diastolic 56–93; PULSE 52–108; RESP 7–38; TEMP 36.6–37.6; O2SAT 83–100
[2022-07-17] MEDS: piperacillin-tazobactam 3.375 GM in sodium chloride 0.9% (plus) 50 ML IV ×2 (02:39→10:22)
[2022-07-17] MEDS: ipratropium-albuterol 3 mL Neb INHALATION ×6 (03:33→23:10)
[2022-07-17] MEDS: FUROsemide 10 mg/mL SDV 10mL 60 MG IVP (05:19)
[2022-07-17 05:50] LABS: Basophils % 0.1 %; Hematocrit 30.2 % (42.0-52.0); Hemoglobin 8.7 g/dL (11.7-16.6); Lymphocytes # 0.8 10^3/uL (0.8-4.8); Lymphocytes % 8.5 %; Mean Corpuscular HGB Conc 28.8 g/dL (30.0-36.0); Mean Corpuscular Hemoglobin 25.4 pg (28.0-34.0); Mean Platelet Volume 9.5 fL (7.4-10.4); Monocytes # 0.6 10^3/uL (0.2-0.9); Monocytes % 6.6 %; Neutrophils # 8.05 10^3/uL (1.8-7.7); Neutrophils % 84.2 %; Nucleated Red Blood Cells % 0 %; Platelet Count 514 10^3/cmm (130-400); Red Blood Count 3.43 10^6/uL (4.1-5.3); Red Cell Distribution Width 19.2 % (12.1-15.1); White Blood Count 9.6 10^3/uL (4.0-10.0)
[2022-07-17 06:11] LABS: Chol HDL Ratio 3.89 mg/dL (1.0-5.00); Cholesterol 171 mg/dL (0-200); HDL Cholesterol 44 mg/dL (60-100); LDL Cholesterol Calculated 111 mg/dL (50-129); LDL HDL Ratio 2.52 RATIO (0.00-3.22); Triglycerides 81 mg/dL (0-150)
[2022-07-17 06:13] LABS: Lactic Sepsis W/Reflex 1.3 mmol/L (0.5-2.2)
[2022-07-17 06:14] LABS: Estmated Average Glucose 91; Hemoglobin A1C 4.8 % (4.0-6.0)
[2022-07-17 06:24] LABS: Alanine Aminotransferase 9 U/L (0-41); Albumin Level 3.5 g/dL (3.5-5.2); Alkaline Phosphatase 94 U/L (40-130); Anion Gap 14.7 (5-19); Aspartate Amino Transferase 11 U/L (0-40); Blood Urea Nitrogen 30 mg/dL (6-20); Calcium 8.7 mg/dL (8.5-10.5); Carbon Dioxide 30 mmol/L (22-29); Chloride 98 mmol/L (98-107); Globulin 2.9 g/dL (1.3-4.6); Glomerular Filtration Rate 108.8 mL/min (90-130); Glucose 129 mg/dL (65-115); Magnesium 2.7 mg/dL (1.7-2.3); Osmolality Calculated 296 mOsm/kg (285-295); Phosphorus 4.4 mg/dL (2.5-4.5); Potassium 3.7 mmol/L (3.5-5.1); Sodium 139 mmol/L (136-145); Thyroid Stimulating Hormone 0.36 uIU/mL (0.27-4.20); Total Bilirubin 0.3 mg/dL (0.15-1.2); Total Protein 6.4 g/dL (6.6-8.7)
[2022-07-17] MEDS: budesonide 0.5 mg/2 mL Neb INHALATION ×2 (07:46→20:37)
[2022-07-17] MEDS: levothyroxine 137 mcg Tablet PO (10:22)
[2022-07-17] MEDS: citalopram 20 mg Tablet 40 MG PO (10:22)
--- NOTE | 2022-07-17 15:16 | PM.PN ---
Subjective Subjective: This morning patient was taken off BiPAP, he is doing well on 5 L nasal cannula Please note his nasal cannula was not attached to the oxygen at the back and which was figured out by the ICU nurse that is why he was showing hypoxia on nasal cannula yesterday Adequate urine output negative diuresis afebrile, no fever blood pressure is stable patient was endorsing feeling hungry Component of contraction alkalosis Vitals/I&O/Wt Last Vital Signs Temp 98 F 07/17/22 04:00 Pulse 82 07/17/22 12:30 Resp 28 H 07/17/22 12:30 BP 119/65 07/17/22 12:30 Pulse Ox 91 07/17/22 12:30 O2 Del Method 07/17/22 12:30 O2 Flow Rate 5 07/17/22 12:30 FiO2 40 07/17/22 03:33 07/17/22 07/17/22 07/17/22 06:59 14:59 22:59 Intake Total 500 / 1232.919 4202 / 1090 Output Total 1250 / 1900 1600 / 1600 Balance -750 / -449.553 -510 / -510 Weight last 48 hrs Weight 96.162 kg Weight 96.071 kg Physical Exam Narrative: Patient looks euvolemic today Dry mucous membranes Awake and alert Currently on nasal cannula, 5 L Nonfocal neuro exam Nonpitting edema of legs Abdomen soft however distended visceral obesity No active chest pain or shortness of breath Very pleasant to communicate Data : 07/17/22 05:10 07/17/22 05:10 Micro: Microbiology 07/15/22 22:14 Blood Culture - Preliminary Blood NEGATIVE TO DATE 07/15/22 22:12 Blood Culture - Preliminary Blood NEGATIVE TO DATE A&P Assessment and plan (1) Acute exacerbation of CHF (congestive heart failure): Status: Acute (2) Acute respiratory failure with hypoxia: Status: Acute (3) 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: Status: Acute Plan 36-year-old male with Down syndrome, was seen in the ER on 07/08 for shortness of breath, CTA rule out PE no signs of DVT, he was discharged home on antibiotics for possible pneumonia, June 08 he was at [facility] as well for his left hip surgery, as per the report it took 5 attempts to intubate him for the surgery, after his surgery he was discharged to the long-term, from long-term he was sent to [facility] ER for worsening of shortness of breath where he was diagnosed with CHF exacerbation, hypoxic hypercarbic respiratory failure which improved with Lasix and BiPAP and he was transferred to our facility for cardiac work-up Spoke with his sister today she is stating that in May at [place] he was there for left hip arthritis surgery and there is plan to do right hip in August, he has been noncompliant with his BiPAP and company took it away within 90 days, at baseline uses 2 L of oxygen, as per the sister after his left hip surgery he remained intubated for about 24 hours, then he became hypotensive, his hospitalization was prolonged secondary to his deconditioning and hemodynamic instability hence he was discharged to a long-term Acute CHF exacerbation Likely related to LAURYN, he has been non compliant with his bipap at home and NH. EF is unknown I will repeat his echo with contrast He is not a good candidate for transesophageal echo I highly doubt he will stay still for MUGA scan outpatient Did discuss his echo report with Dr. Urrutia At this point he is showing signs of contraction alkalosis I will go ahead and decrease the dose of diuretics Clinically is hard to assess his volume, he has nonpitting edema Etiology of CHF exacerbation seems to be possible underlying sleep apnea No acute event I did not see ischemic or infarctive changes on EKG, troponin trending down, high BNP, D-dimer is also high Recent CTA chest on 07/08 was negative for PE Repeat echo with IV contrast Acute hypoxia hypercarbic episodes Currently he is off BiPAP requiring 5 L of oxygen via nasal cannula AT baseline uses 2 L oxygen Work of breathing improved with use of BiPAP He would require BiPAP overnight He has been suffering from recurrent hypercapnic hypoxic respite failure, his presentation seems consistent with central apnea as well Currently reevaluate if he would qualify for BiPAP at the time of discharge considering his apneic, hypercarbic episodes with high BMI Judicious use of anxiolytics COVID-negative Afebrile Bilateral infiltrates on x-ray Likely related to CHF Repeat x-ray tomorrow will de-escalate his antibiotics, community-acquired pneumonia Monitor for any worsening of bilateral small pleural effusion, anticipating improvement with diuresis for now X-ray does show cardiomegaly Hypokalemia: Potassium repleted Magnesium within normal range Patient is high risk for intubation Continue thyroxine for hypothyroidism Patient is full code Right hip surgery planned in August Left hip surgery done at [place] June 08 Noncompliance with his BiPAP I will involve casework supervisor to get his trilogy approved otherwise he is at risk of respiratory failure, recurrent admissions and cardiac arrest related to his significant hypercapnia and hypoxia Because patient is requiring BiPAP frequently I have kept him on clear liquid diet Attestations Medical Necessity Statement*: Continue ICU management for now Time Spent in Patient Care: 30 Coding Level of Care Code Acute Child Caregiver Private Home for Arpang Ravin Diagnoses Acute exacerbation of CHF (congestive heart failure) I50.9 Acute respiratory failure with hypoxia J96.01 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
--- NOTE | 2022-07-17 15:41 | USCV_ITS ---
Deandre Lopez Age: 36 Gender: M : 1985 Exam Date: 07/17/2022 17:16 Ordering Phys: Salo Stratton MD Technologist: Jason Decker Exam Location: [facility] – [place] Indication: short of breath BP: 99 / 61 HR: 97 Rhythm: Sinus Technical Quality: Technically difficult study MEASUREMENTS (Male / Female) Normal Values 2D ECHO LV Ejection Fraction MOD 2C 35.6 % LV Ejection Fraction 2C AL 38.3 % IVC Diameter 1.6 cm DOPPLER Right Atrial Pressure 8.0 mmHg FINDINGS Left Ventricle Without contrast, the echo is nearly uninterpretable. In the noncontrast views only the apical 2 chamber view is minimally available. It suggests the left ventricular size and function are normal. Adding contrast clarifies the normal left ventricular size and function. Ejection fraction is within normal limits. It is most likely in the 60% range. Diastolic function cannot be determined. Doppler examination is not possible. Right Ventricle Right ventricle not well visualized. Right Atrium Right atrium not well visualized. Left Atrium Left atrium not well visualized. Mitral Valve Mitral valve not well visualized. Aortic Valve Aortic valve not well visualized. Tricuspid Valve Tricuspid valve not well visualized. Pulmonic Valve Pulmonic valve not well visualized. Pericardium Normal pericardium without effusion. Aorta Aorta not well visualized. IVC The inferior vena cava is poorly seen but in 1 view it appears to collapse with respiration. CONCLUSIONS Without contrast, the echo is nearly uninterpretable. In the noncontrast views only the apical 2 chamber view is minimally available. It suggests the left ventricular size and function are normal. Adding contrast clarifies the normal left ventricular size and function. Ejection fraction is within normal limits. It is most likely in the 60% range. Diastolic function cannot be determined. Doppler examination is not possible. The echo done the day prior was likewise uninterpretable. Echo contrast confirms normal left ventricular size and function. Dr. Bharath Urrutia MD (Electronically Signed) Final Date: 18 July 2022 07:13 S
--- NOTE | 2022-07-17 15:41 | USR_ITS ---
PROCEDURE INFORMATION: Exam: US Duplex Right Lower Extremity Veins, Limited Exam date and time: 07/17/2022 5:43 PM Age: 36 years old Clinical indication: Swelling (edema) of limb; Lower extremity, right; Additional info: Dvt RT leg TECHNIQUE: Imaging protocol: Real-time Duplex ultrasound of the Right Lower Extremity with 2-D mariee scale, color Doppler flow and spectral waveform analysis with image documentation. Limited exam was focused on the right lower extremity veins. COMPARISON: No relevant prior studies available. FINDINGS: Right deep veins: Unremarkable. The common femoral, femoral, proximal profunda femoral and popliteal veins are patent without thrombus. Normal Doppler waveforms. Normal compressibility and/or augmentation response. Right superficial veins: Unremarkable. Saphenofemoral junction is patent without thrombus. Soft tissues: Unremarkable. US/[place] [id number] IMPRESSION: No evidence of deep vein thrombosis.
[2022-07-17] MEDS: acetylcysteine 200 mg/mL SDV 4 mL 100 MG INHALATION ×3 (16:35→23:10)
[2022-07-17] MEDS: potassium chloride ER 20 mEq Tablet 40 MEQ PO (16:35)
[2022-07-17 17:00] LABS: Hematocrit 35.6 % (42.0-52.0); Hemoglobin 9.7 g/dL (11.7-16.6)
[2022-07-17] MEDS: perflutren protein-a microsphr 0.22 mg/mL SDV 3 mL IV (17:50)
[2022-07-17] MEDS: enoxaparin 30 mg/0.3 mL Syringe SUBCUT (18:27)
[2022-07-18] VITALS (38 sets, daily range): BP systolic 83–167; BP diastolic 51–101; PULSE 73–104; RESP 7–34; TEMP 36.9; O2SAT 91–98
[2022-07-18] MEDS: ipratropium-albuterol 3 mL Neb INHALATION ×6 (03:10→23:06)
[2022-07-18] MEDS: acetylcysteine 200 mg/mL SDV 4 mL 100 MG INHALATION ×5 (03:10→21:17)
[2022-07-18 05:55] LABS: Basophils % 0.1 %; Hematocrit 33.4 % (42.0-52.0); Hemoglobin 9.7 g/dL (11.7-16.6); Lymphocytes # 1.7 10^3/uL (0.8-4.8); Lymphocytes % 12.6 %; Mean Corpuscular Hemoglobin 25.3 pg (28.0-34.0); Mean Platelet Volume 9.6 fL (7.4-10.4); Monocytes # 1.5 10^3/uL (0.2-0.9); Monocytes % 11.3 %; Neutrophils # 10.12 10^3/uL (1.8-7.7); Neutrophils % 75.5 %; Nucleated Red Blood Cells % 0.3 %; Platelet Count 557 10^3/cmm (130-400); Red Blood Count 3.84 10^6/uL (4.1-5.3); White Blood Count 13.4 10^3/uL (4.0-10.0)
[2022-07-18 06:19] LABS: Alanine Aminotransferase 11 U/L (0-41); Albumin Level 3.2 g/dL (3.5-5.2); Alkaline Phosphatase 88 U/L (40-130); Anion Gap 12.2 (5-19); Aspartate Amino Transferase 27 U/L (0-40); Blood Urea Nitrogen 27 mg/dL (6-20); Calcium 8.4 mg/dL (8.5-10.5); Carbon Dioxide 31 mmol/L (22-29); Chloride 97 mmol/L (98-107); Globulin 3.1 g/dL (1.3-4.6); Glomerular Filtration Rate 126.9 mL/min (90-130); Glucose 103 mg/dL (65-115); Magnesium 2.4 mg/dL (1.7-2.3); Osmolality Calculated 287 mOsm/kg (285-295); Phosphorus 3.1 mg/dL (2.5-4.5); Potassium 4.2 mmol/L (3.5-5.1); Sodium 136 mmol/L (136-145); Total Bilirubin 0.3 mg/dL (0.15-1.2); Total Protein 6.3 g/dL (6.6-8.7)
[2022-07-18] MEDS: vancomycin 1,500 MG/300 ML PIGGYBACK 200 MG IV ×2 (06:27→15:58)
[2022-07-18] MEDS: levoFLOXacin 750 mg Tablet PO (06:27)
[2022-07-18] MEDS: budesonide 0.5 mg/2 mL Neb INHALATION ×2 (08:29→21:17)
[2022-07-18] MEDS: predniSONE 20 mg Tablet 40 MG PO (08:42)
[2022-07-18] MEDS: FUROsemide 20 mg Tablet PO (08:43)
[2022-07-18] MEDS: enoxaparin 30 mg/0.3 mL Syringe SUBCUT ×2 (08:43→18:06)
[2022-07-18] MEDS: levothyroxine 137 mcg Tablet PO (10:31)
[2022-07-18] MEDS: citalopram 20 mg Tablet 40 MG PO (10:31)
--- NOTE | 2022-07-18 13:04 | PC.CHAP ---
Pastoral Care Encounter/Spiritual Assessment Type of Contact [] Declined web site project manager visit [] Patient/Family/Request visit [] Outpatient visit [] Follow-up visit [] Physician referral [] Code/Alert [x] Routine visit [] Staff referral [] Actively dying [x] Patient sleeping [] Family support [] [] Out of room [] Palliative care [] [] Receiving care in room [] Pre-surgical visit [] Trauma [] Long length of stay [x] ICU visit [] Other: Relational/Emotional Strength [] Patient feels connected with others/family/visitors/staff [] Distress [] Loneliness/isolation [] Abandonment Spirituality of Patient [] Person of Benita [] Attends Spiritism of their Benita [] Believes in Prayer [] Reads Bible or Rastafari materials [] There are Spiritual issues to be addressed Antenna Machine Operator Interventions [x] Prayer [] Active listening [] Non-anxious presence [] Spiritual/emotional support [] Crisis/trauma care [] Spiritual counseling [] Bereavement support [] Provided bereavement packet [] Provided Bible/devotional materials [] Provided toy/stuffed animal, coloring book to patient or family member [] Provided Communion [] Anointing/[place] [] Salvation [x] Completed spiritual assessment [] Other: Impact on Illness or Injury [] Angry [] Fearful [] Anxious [] Often cries [] Exhaustion [] Unable to work [] Unable to attend rastafarian [] Unable to walk/stand [] Unable to read [] Unable to drive [] Unable to eat/drink [] Unable to sleep [] Unable to be with family [] Patient intubated [] Other: Summary Time spent with patient
--- NOTE | 2022-07-18 14:57 | PC.SOCIAL ---
IMM Update pg 2 of IMM updated and reviewed w/ patient. Copy provided and Copy dated, initialed and placed in chart.
--- NOTE | 2022-07-18 16:04 | PM.PN ---
Subjective Subjective: He reports he is doing some coughing. Denies chest pain or pressure. He feels that he is bringing up some phlegm. Reports that he is chronically on oxygen, 1 L. Noted to have quite significant saturation when he falls asleep, especially supine without BiPAP. Noted desaturating down to the 60s or even 50s. Vitals/I&O/Wt Last Vital Signs Temp 99.7 F H 07/17/22 20:00 Pulse 86 07/18/22 15:52 Resp 16 07/18/22 15:52 BP 145/80 07/18/22 14:00 Pulse Ox 96 07/18/22 15:52 O2 Del Method 07/18/22 15:52 O2 Flow Rate 4 07/18/22 15:52 FiO2 40 07/17/22 03:33 07/18/22 07/18/22 07/18/22 06:59 14:59 22:59 Intake Total 1180 / 1180 Output Total 850 / 3150 Balance -850 / -1250 1180 / 1180 Physical Exam Const: COMMON NORMALS: alert GENERAL APPEARANCE: cooperative ORIENTATION/CONSCIOUSNESS: Yes awake HENMT: COMMON NORMALS: oropharynx normal Neck/C-Spine: COMMON NORMALS: no JVD Resp: COMMON NORMALS: normal respiratory effort AUSCULTATION: diminished lung sounds Cardio: COMMON NORMALS: no JVD, regular rhythm, S1 normal heart sound present, S2 normal heart sound present and No murmurs present (Cardio) RHYTHM: regular rhythm HEART SOUNDS: S1 normal heart sound present and S2 normal heart sound present GI: COMMON NORMALS: Normal to inspection, nondistended, normoactive bowel sounds present, Soft to palpation and non-tender PALPATION: Yes Soft to palpation Extremity: COMMON NORMALS: no joint enlargement GENERAL: Yes edema (1+) Neuro: COMMON NORMALS: moves all extremities SENSORIUM/ORIENTATION: Yes alert Skin: COMMON NORMALS: no rashes or lesions noted GENERAL SKIN EXAM: no rashes or lesions noted Data : 07/18/22 05:43 07/18/22 05:43 Micro: Microbiology 07/17/22 13:12 MRSA Culture - Final Nose A&P Assessment and plan (1) Acute exacerbation of CHF (congestive heart failure): Oxygenation showing some gradual improvement. Today down to 4 L nasal cannula requirement. Has been transitioned to oral Lasix. Echocardiogram very difficult to interpret, nearly uninterpretable contrast study. LV size and function suggested normal. Continue p.o. Lasix. Fluid restriction 1500 mL. Status: Acute (2) Respiratory failure with hypoxia and hypercapnia: Requires BiPAP due to combination of hypoxia and hypercapnia. Severe desaturations especially with sleeping down as low as 50s. ABG did show a provement after supportive care with BiPAP, diuretics, treatment of pneumonia. Needs BiPAP after discharge as will likely have recurrence of CHF, hypercapnia otherwise. 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 Oxygen support. Wean down as tolerating. Status: Acute Plan Hypokalemia: Potassium repleted Magnesium not low Continue thyroxine for hypothyroidism Right hip surgery planned in August Left hip surgery done at [place] June 08 Attestations Medical Necessity Statement*: Continue assessment and management of hypoxic respiratory failure, pneumonia, CHF, arrangements for BiPAP which needs after discharge to prevent recurrence of hypercapnic respiratory failure/respiratory acidosis. 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
[2022-07-19] VITALS (46 sets, daily range): BP systolic 81–162; BP diastolic 58–104; PULSE 65–107; RESP 10–36; TEMP 36.9–37.3; O2SAT 82–100; BMI 39.6
--- NOTE | 2022-07-19 | PC.NURSE ---
Physician Communication Clear liquid/consistent carb diet ordered, patient requesting cookies/pudding. Patient swallows fine, remnants of meal in patient room from earlier in the day which patient states he ate. Dr. Stratton contacted; no new diet order received. Additionally, patient had negative covid test on 07/16/22, new covid test ordered. Order received from Dr. Stratton to cancel new test.
[2022-07-19] MEDS: acetaminophen 325 mg Tablet 650 MG PO ×2 (00:22→06:15)
[2022-07-19 02:12] LABS: Basophils # 0.1 10^3/uL (0.0-0.1); Basophils % 0.4 %; Eosinophils % 0.1 %; Hemoglobin 10.9 g/dL (11.7-16.6); Lymphocytes # 2.5 10^3/uL (0.8-4.8); Lymphocytes % 20.5 %; Mean Corpuscular HGB Conc 28.7 g/dL (30.0-36.0); Mean Corpuscular Hemoglobin 24.8 pg (28.0-34.0); Mean Corpuscular Volume 86.6 fl (80-94); Mean Platelet Volume 9.6 fL (7.4-10.4); Monocytes # 1.7 10^3/uL (0.2-0.9); Monocytes % 14.1 %; Neutrophils # 7.87 10^3/uL (1.8-7.7); Neutrophils % 63.6 %; Nucleated Red Blood Cells % 0 %; Platelet Count 568 10^3/cmm (130-400); Red Blood Count 4.39 10^6/uL (4.1-5.3); Red Cell Distribution Width 18.7 % (12.1-15.1); White Blood Count 12.4 10^3/uL (4.0-10.0)
[2022-07-19 02:33] LABS: Anion Gap 12.6 (5-19); Blood Urea Nitrogen 21 mg/dL (6-20); Calcium 8.3 mg/dL (8.5-10.5); Carbon Dioxide 32 mmol/L (22-29); Chloride 96 mmol/L (98-107); Glomerular Filtration Rate 108.8 mL/min (90-130); Glucose 89 mg/dL (65-115); Magnesium 2.2 mg/dL (1.7-2.3); Osmolality Calculated 286 mOsm/kg (285-295); Phosphorus 2.7 mg/dL (2.5-4.5); Potassium 3.6 mmol/L (3.5-5.1); Sodium 137 mmol/L (136-145); Vancomycin Trough 23.4 ug/mL (10-15)
--- NOTE | 2022-07-19 02:46 | PC.PHAR ---
Vancomycin trough on dosage of 1500mg IVPB every 12 hours is 23.4. Hold next dose and reduce dosage to 1000mg IVPB every 12 hours with another trough before the fourth 1000mg dose to determine if further dosage adjustment is needed.
[2022-07-19] MEDS: ipratropium-albuterol 3 mL Neb INHALATION ×5 (03:06→20:37)
--- NOTE | 2022-07-19 03:30 | PC.NURSE ---
BIPAP Throughout night when asleep, patient's oxygen saturation decreased various times to the low 70s. Nurse asked several times if patient would wear bipap; patient refused all but one time. In that one instance, patient wore mask for approximately 30 minutes then requested to remove it. Patient was agreeable to wearing nasal cannula at 4L, significantly improving oxygenation. Patient did remove nasal cannula multiple times throughout night but when asked patient would replace it and wear with no complaint. Education provided on sleep apnea and oxygen use during nighttime, patient verbalized understanding yet needs frequent reinforcement.
[2022-07-19] MEDS: levoFLOXacin 750 mg Tablet PO (06:03)
--- NOTE | 2022-07-19 06:20 | ECG_ITS ---
[facility] Test Date: 2022-07-19 Pat Name: Deandre Lopez Department: Room: [facility] Gender: Male Kettle Hand: : 1985 Requested By: Salo Stratton Order Number: [id number] Margie MD: Francisco Ortega M.D. Measurements Intervals [place] Rate: 86 P: 71 WV: 149 QRS: 90 QRSD: 92 T: 48 QT: 368 QTc: 442 Interpretive Statements SINUS RHYTHM WITH OCCASIONAL SUPRAVENTRICULAR PREMATURE COMPLEXES LEFT ATRIAL ENLARGEMENT [-0.15mV P-WAVE IN V1/V2] Compared to ECG 07/16/2022 04:31:28 No significant changes Electronically Signed On 07-19-2022 16:26:21 CDT by Francisco Ortega M.D. [id number]
[2022-07-19 07:03] LABS: Troponin(5th) Baseline 25 ng/L (0-15)
--- NOTE | 2022-07-19 07:05 | PC.NURSE ---
Chest Pain Upon asking patient if he was in any pain, patient stated yes. When asked if he could point to where his pain was, patient pointed to his chest and said chest. Following that, nurse asked if he was hurting anywhere else, patient pointed to his shoulder. Patient denied shortness of breath and nausea. Patient's color normal, no diaphoresis, all vitals stable. Information relayed to Dr. Stratton; telephone order received for EKG and troponin series in addition to administer tylenol to check pain responsiveness. Orders placed, tylenol administered per JAN.
[2022-07-19] MEDS: budesonide 0.5 mg/2 mL Neb INHALATION ×2 (07:49→20:37)
[2022-07-19] MEDS: FUROsemide 20 mg Tablet PO (07:50)
--- NOTE | 2022-07-19 07:53 | ECG_ITS ---
[facility] Test Date: 2022-07-19 Pat Name: Deandre Lopez Department: Room: [facility] Gender: Male Fuel Manager: : 1985 Requested By: Salo Stratton Order Number: [id number] Margie MD: Francisco Ortega M.D. Measurements Intervals [place] Rate: 82 P: 67 MO: 138 QRS: 90 QRSD: 96 T: 25 QT: 378 QTc: 442 Interpretive Statements SINUS RHYTHM LEFT ATRIAL ENLARGEMENT [-0.15mV P-WAVE IN V1/V2] Compared to ECG 07/19/2022 06:20:34 No significant changes Electronically Signed On 07-19-2022 16:32:19 CDT by Francisco Ortega M.D. [id number]
[2022-07-19 09:01] LABS: Troponin 5 2HR 24.13 ng/L (0-15)
[2022-07-19 09:05] LABS: Troponin 5 2HR Delta -0.87 ABS# (0-10)
[2022-07-19] MEDS: citalopram 20 mg Tablet 40 MG PO (10:07)
[2022-07-19] MEDS: predniSONE 20 mg Tablet 40 MG PO (10:07)
[2022-07-19] MEDS: enoxaparin 30 mg/0.3 mL Syringe SUBCUT ×2 (10:07→18:36)
[2022-07-19] MEDS: levothyroxine 137 mcg Tablet PO (10:07)
--- NOTE | 2022-07-19 10:21 | PC.CHAP ---
Pastoral Care Encounter/Spiritual Assessment Type of Contact [] Declined manager quality visit [] Patient/Family/Request visit [] Outpatient visit [] Follow-up visit [] Physician referral [] Code/Alert [x] Routine visit [] Staff referral [] Actively dying [] Patient sleeping [] Family support [] [] Out of room [] Palliative care [] [] Receiving care in room [] Pre-surgical visit [] Trauma [] Long length of stay [x] ICU visit [] Other: Relational/Emotional Strength [] Patient feels connected with others/family/visitors/staff [] Distress [] Loneliness/isolation [] Abandonment Spirituality of Patient [] Person of Benita [] Attends Jain of their Benita [] Believes in Prayer [] Reads Bible or Orthodox materials [] There are Spiritual issues to be addressed 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 Interventions [x] Prayer [] Active listening [] Non-anxious presence [] Spiritual/emotional support [] Crisis/trauma care [] Spiritual counseling [] Bereavement support [] Provided bereavement packet [] Provided Bible/devotional materials [] Provided toy/stuffed animal, coloring book to patient or family member [] Provided Communion [] Anointing/[place] [] Salvation [x] Completed spiritual assessment [] Other: Impact on Illness or Injury [] Angry [] Fearful [] Anxious [] Often cries [] Exhaustion [] Unable to work [] Unable to attend adventism [] Unable to walk/stand [] Unable to read [] Unable to drive [] Unable to eat/drink [] Unable to sleep [] Unable to be with family [] Patient intubated [] Other: Summary shared time with PT... very sweet disposition Time spent with patient
[2022-07-19 12:52] LABS: Troponin 5 6HR 19.74 ng/L (0-15)
[2022-07-19 12:54] LABS: Troponin 5 6HR Delta -5.26 ng/L (0-12)
--- NOTE | 2022-07-19 13:24 | ECG_ITS ---
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 Measurements Intervals [place] Rate: 92 P: 66 NC: 148 QRS: 77 QRSD: 90 T: 33 QT: 373 QTc: 463 Interpretive Statements SINUS RHYTHM LEFT ATRIAL ENLARGEMENT [-0.15mV P-WAVE IN V1/V2] NONSPECIFIC T-WAVE ABNORMALITY Compared to ECG 07/19/2022 07:53:56 T-wave abnormality now present Electronically Signed On 07-19-2022 16:31:55 CDT by Francisco Ortega M.D. [id number]
--- NOTE | 2022-07-19 13:44 | PM.PN ---
Subjective Subjective: He has a few different complaints today including some pressure in his chest, as well as in his left arm, but also right wrist. He has been belching this morning. When asked if he is feeling bloated, states also yes. Vitals/I&O/Wt Last Vital Signs Temp 98.4 F 07/19/22 04:00 Pulse 86 07/19/22 13:00 Resp 15 07/19/22 13:00 BP 114/78 07/19/22 13:00 Pulse Ox 98 07/19/22 13:00 O2 Del Method 07/19/22 13:00 O2 Flow Rate 3 07/19/22 13:00 FiO2 30 07/19/22 10:25 07/18/22 07/19/22 07/19/22 22:59 06:59 14:59 Intake Total 920 / 2100 180 / 2280 500 / 500 Output Total 2300 / 2300 1350 / 3650 Balance -1380 / -200 -1170 / -1370 500 / 500 Weight last 48 hrs Weight 89.176 kg Physical Exam Const: COMMON NORMALS: alert GENERAL APPEARANCE: cooperative ORIENTATION/CONSCIOUSNESS: Yes awake HENMT: COMMON NORMALS: oropharynx normal Neck/C-Spine: COMMON NORMALS: no JVD Resp: COMMON NORMALS: normal respiratory effort and clear to auscultation bilaterally AUSCULTATION: clear to auscultation bilaterally Cardio: COMMON NORMALS: no JVD, regular rhythm, S1 normal heart sound present, S2 normal heart sound present and No murmurs present (Cardio) RHYTHM: regular rhythm HEART SOUNDS: S1 normal heart sound present and S2 normal heart sound present GI: COMMON NORMALS: Normal to inspection, nondistended, normoactive bowel sounds present, Soft to palpation and non-tender PALPATION: Yes Soft to palpation Extremity: COMMON NORMALS: no joint enlargement GENERAL: Yes edema (1+) Neuro: COMMON NORMALS: moves all extremities SENSORIUM/ORIENTATION: Yes alert Skin: COMMON NORMALS: no rashes or lesions noted GENERAL SKIN EXAM: no rashes or lesions noted Data : 07/19/22 01:25 07/19/22 01:25 Micro: Microbiology 07/17/22 13:12 MRSA Culture - Final Nose A&P Assessment and plan (1) Acute exacerbation of CHF (congestive heart failure): Oxygenation continues to slowly improve. Down to 3 L. Having some chest tightness today. Repeating troponin and EKG. Sean appears to be moving air a little bit better. If no further episodes of chest pain, CHF continues to improve, may be able to discharge tomorrow if BiPAP can be obtained. Continue diuresis for now, he is in good negative balance. Weight appears to be approaching closer to baseline although it is not really clear what the baseline actually is, appears to be somewhere between 83-88 kg. Currently 89.2. Echocardiogram very difficult to interpret, nearly uninterpretable contrast study. LV size and function suggested normal. Fluid restriction 1500 mL. Status: Acute (2) Respiratory failure with hypoxia and hypercapnia: Requires BiPAP due to combination of hypoxia and hypercapnia. Severe desaturations especially with sleeping down as low as 50s. ABG did show a provement after supportive care with BiPAP, diuretics, treatment of pneumonia. Needs BiPAP after discharge as will likely have recurrence of CHF, hypercapnia otherwise. NH working on obtaining BiPAP. 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 Oxygen support. Wean down as tolerating. Status: Acute Plan Hypokalemia: Potassium repleted Magnesium not low Continue thyroxine for hypothyroidism Right hip surgery planned in August Left hip surgery done at [facility] June 08 Attestations Medical Necessity Statement*: Continue admission for management of improving respiratory failure, assessment of chest tightness, treatment of improving CHF, arrangements for BiPAP on outpatient side. 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
[2022-07-19 14:34] LABS: Troponin T (5th) Once 17 ng/L (0-15)
[2022-07-19] MEDS: pantoprazole DR 40 mg Tablet PO (15:14)
[2022-07-19] MEDS: vancomycin 1,000 MG in sodium chloride 0.9% 250 ML 250 MG IV (15:14)
--- NOTE | 2022-07-19 22:12 | PC.NURSE ---
Refusing BIPAP Pt pulled off BIPAP mask and stated it he did not want to wear it. Pt educated on need for BIPAP. BIPAP remains at bedside in standby mode.
--- NOTE | 2022-07-19 22:32 | PC.NURSE ---
O2 dropped Pts O2 dropped to 82%. Pt was laying flat on back with NC off and pillow over face. Educated pt that he needs to leave NC on and to not put a pillow over his face. NC at 2L, SPO2 92%, HOB elevated.
[2022-07-20] VITALS (24 sets, daily range): BP systolic 98–130; BP diastolic 54–102; PULSE 75–99; RESP 14–28; TEMP 36.7–37.4; O2SAT 88–99
[2022-07-20] MEDS: ipratropium-albuterol 3 mL Neb INHALATION ×4 (00:28→11:20)
[2022-07-20] MEDS: vancomycin 1,000 MG in sodium chloride 0.9% 250 ML 250 MG IV (02:25)
--- NOTE | 2022-07-20 03:29 | PC.NURSE ---
Refusing BIPAP Pt agreed to wear BIPAP when oxygen dropped to 75% during sleep apnea episode around 0230. Pt took BIPAP off @0320 and stated he did not want to wear it. NC @2L is on. BIPAP is on standby and bedside. SpO2 93%. Pt educated to keep the HOB raised and to breath in his nose and out his mouth. Reinforcement needed.
[2022-07-20 04:02] LABS: Basophils # 0.1 10^3/uL (0.0-0.1); Basophils % 0.6 %; Eosinophils % 0.3 %; Hematocrit 36.6 % (42.0-52.0); Hemoglobin 10.6 g/dL (11.7-16.6); Lymphocytes # 2.7 10^3/uL (0.8-4.8); Lymphocytes % 20.6 %; Mean Corpuscular Hemoglobin 24.9 pg (28.0-34.0); Mean Corpuscular Volume 85.9 fl (80-94); Mean Platelet Volume 9.6 fL (7.4-10.4); Monocytes # 1.7 10^3/uL (0.2-0.9); Monocytes % 13.3 %; Neutrophils # 8.31 10^3/uL (1.8-7.7); Nucleated Red Blood Cells % 0 %; Platelet Count 546 10^3/cmm (130-400); Red Blood Count 4.26 10^6/uL (4.1-5.3); Red Cell Distribution Width 18.4 % (12.1-15.1)
[2022-07-20 04:31] LABS: Anion Gap 9.6 (5-19); Blood Urea Nitrogen 18 mg/dL (6-20); Calcium 8.4 mg/dL (8.5-10.5); Carbon Dioxide 33 mmol/L (22-29); Chloride 97 mmol/L (98-107); Glomerular Filtration Rate 126.9 mL/min (90-130); Glucose 96 mg/dL (65-115); Osmolality Calculated 284 mOsm/kg (285-295); Potassium 3.6 mmol/L (3.5-5.1); Sodium 136 mmol/L (136-145)
--- NOTE | 2022-07-20 05:24 | PC.NURSE ---
Addendum entered by Patience Coles RN 07/20/22 05:58: Pt removed BIPAP. NC @2L. SpO2 95% Addendum entered by Patience Coles RN 07/20/22 05:30: BIPAP on pt. SpO2 96% Original Note: Low O2/ Refusing BIPAP Pt SpO2 dropped to mid 70's% during sleep apnea episode. Instructed pt to breath in though their nose, lifted HOB, offered BIPAP. Pt stated no and turned head away when asked to wear BIPAP.
[2022-07-20] MEDS: levoFLOXacin 750 mg Tablet PO (05:59)
[2022-07-20] MEDS: acetylcysteine 200 mg/mL SDV 4 mL 100 MG INHALATION (08:14)
[2022-07-20] MEDS: budesonide 0.5 mg/2 mL Neb INHALATION (08:15)
[2022-07-20] MEDS: FUROsemide 20 mg Tablet PO (09:06)
[2022-07-20] MEDS: levothyroxine 137 mcg Tablet PO (09:06)
[2022-07-20] MEDS: citalopram 20 mg Tablet 40 MG PO (09:06)
[2022-07-20] MEDS: predniSONE 20 mg Tablet 40 MG PO (09:07)
[2022-07-20] MEDS: pantoprazole DR 40 mg Tablet PO (09:07)
[2022-07-20] MEDS: enoxaparin 30 mg/0.3 mL Syringe SUBCUT (09:07)
[2022-07-20 10:51] LABS: SARS Covid-2 Antigen Negative (Negative)
--- NOTE | 2022-07-20 11:42 | P.DS_ITS ---
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: Status: Acute (4) Pneumonia: Status: Acute Hospital Course Hospital Course 36-year-old male with Down syndrome, hypothyroidism, emphysema, GERD, anxiety, history of left hip replacement, was seen in the ER on 07/08 for shortness of breath, CTA rule out PE no signs of DVT, he was discharged home on antibiotics for possible pneumonia, June 08 he was at [facility] as well for his left hip surgery, as per the report it took 5 attempts to intubate him for the surgery, after his surgery he was discharged to the residential, from residential he was sent to [facility] ER for worsening of shortness of breath where he was diagnosed with CHF exacerbation, hypoxic hypercarbic respiratory failure which improved with Lasix and BiPAP and he was transferred to our facility for cardiac work-up. Troponin and EKG series were obtained, with mild troponin elevation noted on high-sensitivity troponins. EKG with nonspecific T wave abnormality. Echocardiogram was also obtained, which required contrast due to technically very difficult study, with contrast LV size and function appear to be normal. EF WNL most likely 60%. Diastolic function cannot be determined. He underwent treatment of pneumonia with Levaquin, as well as acute diastolic CHF with IV diuresis. Initial hypoxia, requiring up to 5 L of oxygen by nasal cannula has been continually improving, currently down to 2 L by nasal cannula saturating in the low to mid 90s. On presentation he was noted in acute hypoxic and hypercapnic respiratory fail ure, with respiratory acidosis, PCO2 60.5. He does require BiPAP support anytime he is sleeping due to again risk of CO2 retention, as well as due to desaturation without BiPAP sometimes as low as 50s. BiPAP was requested to be continued at long term facility and I am told will be available for him starting today. We discussed this also with his sister. We also discussed additional work-up with stress testing given mild troponin elevation, diastolic CHF. NSAID is discontinued. Please avoid NSAIDs due to associated cardiovascular risk. Please follow-up regarding stress test and results, assess if further cardiac evaluation is necessary and whether this may delay the original plans for elective hip surgery in August. Physical Exam Const: COMMON NORMALS: alert GENERAL APPEARANCE: cooperative ORIENTATION/CONSCIOUSNESS: Yes awake OTHER: Appears comfortable, pleasant and interactive, smiling. HENMT: COMMON NORMALS: oropharynx normal Neck/C-Spine: COMMON NORMALS: no JVD Resp: COMMON NORMALS: normal respiratory effort and clear to auscultation bilaterally AUSCULTATION: clear to auscultation bilaterally and diminished lung sounds Cardio: COMMON NORMALS: no JVD, regular rhythm, S1 normal heart sound present, S2 normal heart sound present and No murmurs present (Cardio) RHYTHM: regular rhythm HEART SOUNDS: S1 normal heart sound present and S2 normal heart sound present GI: COMMON NORMALS: Normal to inspection, nondistended, normoactive bowel sounds present, Soft to palpation and non-tender PALPATION: Yes Soft to palpation Extremity: COMMON NORMALS: no joint enlargement GENERAL: Yes edema (Trace if any residual edema) Neuro: COMMON NORMALS: moves all extremities SENSORIUM/ORIENTATION: Yes alert Skin: COMMON NORMALS: no rashes or lesions noted GENERAL SKIN EXAM: no rashes or lesions noted Discharge Data Studies Completed and Pending Completed Studies During Hospitalization Category Date Time Status XR chest 1V portable [id number] Routine Exams 07/15/22 21:20 Completed CV. echo complete* [id number] Routine Ultrasound 07/16/22 21:22 Completed CV. echo wo/w contrast [id number] Routine Ultrasound 07/17/22 15:41 Completed US venous duplex lower extremity RT [CV venous duplex Ultrasound 07/17/22 15:[place] [id number]] Routine Pending at discharge Category Date Time Status Arterial Blood Gas W/O Coox AM LABS Lab 07/17/22 04:00 Ordered Basic Metabolic Panel AM LABS Lab 07/21/22 04:00 Ordered Blood Culture Routine Lab 07/15/22 22:14 Results Complete Blood Count w/Auto AM LABS Lab 07/21/22 04:00 Ordered Complete Blood Count w/Auto AM LABS Lab 07/22/22 04:00 Ordered Sputum Culture and Gram Stain Routine Lab 07/16/22 13:52 Uncollected Vancomycin Trough Timed Lab 07/21/22 02:00 Ordered Radiology Impressions Chest X-Ray 07/15/22 21:20 IMPRESSION: 1. Bilateral airspace infiltrates. 2. Small bilateral pleural effusions. 3. Cardiomegaly. Venous Duplex 07/17/22 15:41 IMPRESSION: No evidence of deep vein thrombosis. Laboratory Results WBC 13.0 10^3/uL (4.0-10.0) H 07/20/22 03:24 RBC 4.26 10^6/uL (4.1-5.3) 07/20/22 03:24 Hgb 10.6 g/dL (11.7-16.6) L 07/20/22 03:24 Hct 36.6 % (42.0-52.0) L 07/20/22 03:24 MCV 85.9 fl (80-94) 07/20/22 03:24 MCH 24.9 pg (28.0-34.0) L 07/20/22 03:24 MCHC 29.0 g/dL (30.0-36.0) L 07/20/22 03:24 RDW 18.4 % (12.1-15.1) H 07/20/22 03:24 Plt Count 546 10^3/cmm (130-400) H 07/20/22 03:24 MPV 9.6 fL (7.4-10.4) 07/20/22 03:24 Neut % (Auto) 64.0 % 07/20/22 03:24 Lymph % (Auto) 20.6 % 07/20/22 03:24 Hemphill % (Auto) 13.3 % 07/20/22 03:24 Eos % (Auto) 0.3 % 07/20/22 03:24 Baso % (Auto) 0.6 % 07/20/22 03:24 Neut # (Auto) 8.31 10^3/uL (1.8-7.7) H 07/20/22 03:24 Lymph # (Auto) 2.7 10^3/uL (0.8-4.8) 07/20/22 03:24 Hemphill # (Auto) 1.7 10^3/uL (0.2-0.9) H 07/20/22 03:24 Eos # (Auto) 0.0 10^3/uL (0.0-0.8) 07/20/22 03:24 Baso # (Auto) 0.1 10^3/uL (0.0-0.1) 07/20/22 03:24 Nucleated RBC % (auto) 0 % 07/20/22 03:24 Nucleated RBCs # 0.0 /100WBC 07/20/22 03:24 D-Dimer 1.98 ug/mIFEU (0-0.59) H 07/16/22 14:46 Specimen Type Arterial 07/16/22 02:15 Sample Site Radial, right 07/16/22 02:15 ABG pH 7.44 (7.35-7.45) 07/16/22 02:15 ABG pCO2 48.5 mmHg (35-45) H 07/16/22 02:15 ABG pO2 81.5 mmHg (80.0-100.0) 07/16/22 02:15 ABG HCO3 32.8 mmol/L (22-26) H 07/16/22 02:15 ABG Base Excess 7.7 mmol/L (-2.0-2.0) H 07/16/22 02:15 Marvin Test Pos 07/16/22 02:15 Hematocrit 28.1 % (42-52) L 07/16/22 02:15 O2 Delivery Device Bipap 07/16/22 02:15 FiO2 45.0 % 07/16/22 02:15 Ultrasound Applications Specialist ID Carrieja 07/16/22 02:15 Sodium 136 mmol/L (136-145) 07/20/22 03:24 Potassium 3.6 mmol/L (3.5-5.1) 07/20/22 03:24 Chloride 97 mmol/L (98-107) L 07/20/22 03:24 Carbon Dioxide 33 mmol/L (22-29) H 07/20/22 03:24 Anion Gap 9.6 (5-19) 07/20/22 03:24 BUN 18 mg/dL (6-20) 07/20/22 03:24 Creatinine 0.7 mg/dL (0.7-1.2) 07/20/22 03:24 GFR Calculation 126.9 mL/min (90-130) 07/20/22 03:24 Glucose 96 mg/dL (65-115) 07/20/22 03:24 Estimat Average Glucose 91 07/17/22 05:10 Hemoglobin A1c 4.8 % (4.0-6.0) 07/17/22 05:10 Calculated Osmolality 284 mOsm/kg (285-295) L 07/20/22 03:24 Lactic Acid 1.3 mmol/L (0.5-2.2) 07/17/22 05:10 Lactate 1.2 mmol/L (0.5-2.2) 07/15/22 22:12 Calcium 8.4 mg/dL (8.5-10.5) L 07/20/22 03:24 Phosphorus 2.7 mg/dL (2.5-4.5) 07/19/22 01:25 Magnesium 2.2 mg/dL (1.7-2.3) 07/19/22 01:25 Total Bilirubin 0.3 mg/dL (0.15-1.2) 07/18/22 05:43 AST 27 U/L (0-40) 07/18/22 05:43 ALT 11 U/L (0-41) 07/18/22 05:43 Alkaline Phosphatase 88 U/L (40-130) 07/18/22 05:43 Troponin T Gen 5 ng/L 17 ng/L (0-15) H 07/19/22 14:11 Troponin T Baseline 25 ng/L (0-15) H 07/19/22 06:24 Troponin T 120 Minute 24.13 ng/L (0-15) H 07/19/22 08:21 Delta Troponin T -0.87 ABS# (0-10) L 07/19/22 08:21 Troponin T Hi Sens 6Hr 19.74 ng/L (0-15) H 07/19/22 12:30 Troponin T Hi Sens 6Hr Delta -5.26 ng/L (0-12) L 07/19/22 12:30 C-Reactive Protein 55.2 mg/L (0.0-4.9) H 07/16/22 14:46 NT-Pro-B Natriuret Pep 719 pg/mL (0-125) H 07/16/22 03:20 Total Protein 6.3 g/dL (6.6-8.7) L 07/18/22 05:43 Albumin 3.2 g/dL (3.5-5.2) L 07/18/22 05:43 Globulin 3.1 g/dL (1.3-4.6) 07/18/22 05:43 Triglycerides 81 mg/dL (0-150) 07/17/22 05:10 Cholesterol 171 mg/dL (0-200) 07/17/22 05:10 LDL Cholesterol, Calc 111 mg/dL (50-129) 07/17/22 05:10 HDL Cholesterol 44 mg/dL (60-100) L 07/17/22 05:10 LDL/HDL Ratio 2.52 RATIO (0.00-3.22) 07/17/22 05:10 Cholesterol/HDL Ratio 3.89 mg/dL (1.0-5.00) 07/17/22 05:10 Procalcitonin 0.19 ng/mL (0-0.5) 07/16/22 14:46 TSH 0.36 uIU/mL (0.27-4.20) 07/17/22 05:10 Vancomycin Trough 23.4 ug/mL (10-15) H 07/19/22 01:25 SARS-CoV-2 Ag (Rapid) Negative (Negative) 07/20/22 09:10 Vitals Last Vital Signs Temp 98.0 F 07/20/22 09:00 Pulse 90 07/20/22 11:25 Resp 18 07/20/22 11:21 BP 106/76 07/20/22 10:00 Pulse Ox 93 07/20/22 11:21 O2 Del Method 07/20/22 11:21 O2 Flow Rate 2 07/20/22 04:00 FiO2 30 07/19/22 21:38 Discharge Plan Discharge Patient Disposition: Home Condition: Stable Prescriptions: New levofloxacin 750 mg Tablet 750 mg PO DAILY@0600 Qty: 5 0RF pantoprazole 40 mg Tablet,Delayed Release (Dr/Ec) 40 mg PO DAILY Qty: 90 0RF acetaminophen 650 mg tablet extended release 650 mg PO Q8H PRN (Reason: pain) Qty: 90 0RF aspirin [Adult Aspirin Regimen] 81 mg tablet,delayed release (DR/EC) 81 mg PO DAILY Qty: 90 0RF furosemide 40 mg tablet 40 mg PO DAILY PRN (Reason: edema) Qty: 30 0RF Continued citalopram 40 mg tablet 40 mg PO DAILY@1000 allopurinol 100 mg tablet 100 mg PO DAILY@1000 albuterol sulfate 90 mcg/actuation HFA aerosol inhaler 2 inh inhalation Q6H PRN (Reason: shortness of breath or wheezing) Qty: 6.7 0RF levothyroxine 137 mcg Tablet 137 mcg PO DAILY Senna-S 8.6-50 mg Tablet 1 tab-cap PO BID tramadol 50 mg Tablet 50 mg PO Q6H PRN (Reason: Pain) Tylenol Extra Strength 500 mg Tablet 500 mg PO Q6H PRN (Reason: Pain) omeprazole 20 mg Capsule,Delayed Release(Dr/Ec) 20 mg PO DAILY Vitamin D3 25 mcg (1,000 unit) Capsule 25 mcg PO DAILY Discontinued meloxicam 15 mg tablet 15 mg PO DAILY@1000 Discharge Orders: Discharge Order (Routine); Ordered 07/20/22 Ordered By: Willie Jackson Other Ambulatory Orders: Sestamibi Stress Test Request (Routine) Timeframe: 2 Weeks Facility: [facility] - Location: Cardiac Diagnostic Laboratory Ordered By: Willie Jackson Referrals: Marina Aguirre [Primary Care Provider] - 4-7 days Discharge Diet: Cardiac Discharge Activity: Oxygen as instructed and Cpap/Bipap as instructed Patient Instructions: Sepsis (DC), Hypoxia (GEN), Pneumonia (DC), BiPAP (GEN), CHF Stoplight, Opioid Safety Activity Restrictions/Additional Instructions: Wear BiPAP anytime when sleeping or napping. 2 L nasal cannula oxygen, wean down as tolerating. Maintain saturation 90-92%. Avoid elevated oxygen saturations. Complete antibiotic course for pneumonia. Diuretics as needed for edema. Please maintain fluid restriction of 1500 mL/day. Complete stress test evaluation, follow-up with primary provider to discuss results and consider whether further cardiac evaluation is needed before elective orthopedic surgery. Please recheck potassium on Monday. 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
--- NOTE | 2022-07-20 13:19 | PC.CHAP ---
Pastoral Care Encounter/Spiritual Assessment Type of Contact [] Declined lime kiln worker helper visit [] Patient/Family/Request visit [] Outpatient visit [] Follow-up visit [] Physician referral [] Code/Alert [x] Routine visit [] Staff referral [] Actively dying [] Patient sleeping [] Family support [] [] Out of room [] Palliative care [] [] Receiving care in room [] Pre-surgical visit [] Trauma [] Long length of stay [x] ICU visit [] Other: Relational/Emotional Strength [] Patient feels connected with others/family/visitors/staff [] Distress [] Loneliness/isolation [] Abandonment Spirituality of Patient [] Person of Benita [] Attends Restorationism of their [place]ita [] Believes in Prayer [] Reads Bible or Confucianist materials [] There are Spiritual issues to be addressed Chief Controller Station Interventions [x] Prayer [] Active listening [] Non-anxious presence [] Spiritual/emotional support [] Crisis/trauma care [] Spiritual counseling [] Bereavement support [] Provided bereavement packet [] Provided Bible/devotional materials [] Provided toy/stuffed animal, coloring book to patient or family member [] Provided Communion [] Anointing/[place] [] Salvation [] Completed spiritual assessment [] Other: Impact on Illness or Injury [] Angry [] Fearful [] Anxious [] Often cries [] Exhaustion [] Unable to work [] Unable to attend synagogue [] Unable to walk/stand [] Unable to read [] Unable to drive [] Unable to eat/drink [] Unable to sleep [] Unable to be with family [] Patient intubated [] Other: Summary Time spent with patient 5 min
== END 2022-07-20 16:00 | disposition skilled nursing facility (03) | DRG 193 ==
PROVIDERS: Internal Medicine; Admitting Provider Family Medicine; PCP Nurse Practitioner Family; Visit Provider Internal Medicine
DX: J18.9 Pneumonia, unspecified organism (principal); I50.31 Acute diastolic (congestive) heart failure; J96.02 Acute respiratory failure with hypercapnia; J96.01 Acute respiratory failure with hypoxia; Q90.9 Down syndrome, unspecified; E03.9 Hypothyroidism, unspecified; Z96.642 Presence of left artificial hip joint; F41.9 Anxiety disorder, unspecified; J43.9 Emphysema, unspecified; K21.9 Gastro-esophageal reflux disease without esophagitis; M10.9 Gout, unspecified; M54.16 Radiculopathy, lumbar region; G47.33 Obstructive sleep apnea (adult) (pediatric); M16.0 Bilateral primary osteoarthritis of hip; Z91.19 Patient's noncompliance with other medical treatment and regimen; Z79.891 Long term (current) use of opiate analgesic; Z79.51 Long term (current) use of inhaled steroids; E87.6 Hypokalemia
CPT/HCPCS: 36415; 36600; 71045; 80048; 80053; 80061; 80202; 82803; 83036; 83605; 83735; 83880; 84100; 84145; 84443; 84484; 85014; 85018; 85025; 85378; 86140; 87040; 87426; 87641; 93005; 93306; 93971; 94640; 94660; 96372; C8929; J1650; J1940; J2543; J2920; J3370; J3475; J7040; J7050; J7512; J7608; J7626; Q9956

== ENCOUNTER 2022-12-04 13:55 | Inpatient (IN) | payer MEDICARE, MEDICAID, SELFPAY ==
[2022-12-04] VITALS (58 sets, daily range): BP systolic 101–177; BP diastolic 70–141; PULSE 87–110; RESP 16–39; TEMP 36.9–37.4; O2SAT 20–100; BMI 41.5
--- NOTE | 2022-12-04 14:04 | XRR_ITS ---
PROCEDURE INFORMATION: Exam: XR Chest Exam date and time: 12/04/2022 2:08 PM Age: 37 years old Clinical indication: Shortness of breath; Additional info: SOB TECHNIQUE: Imaging protocol: Radiologic exam of the chest. Views: 1 view. COMPARISON: CR (CHEST, ) 07/15/2022 9:43 PM FINDINGS: Lungs: Low lung volumes are seen. Interstitial densities seen in the right upper lobe and vascular congestion is seen in the left perihilar region. Prior examination showed bilateral upper lobe interstitial congestion No consolidation. Pleural spaces: Unremarkable. No pleural effusion. No pneumothorax. Heart/Mediastinum: Unremarkable. No cardiomegaly. Bones/joints: Unremarkable. XR/XR chest 1V portable [id number] IMPRESSION: 1. Right upper lobe interstitial congestion decreased since prior 2. Low lung volumes seen. 3. Otherwise negative examination
--- NOTE | 2022-12-04 14:09 | W.ED.SOB ---
HPI - SOB/Dyspnea General: Chief Complaint: Shortness of Breath/Dyspnea Stated Complaint: SOB Time Seen by Provider: 12/04/22 13:57 History of Present Illness: HPI Narrative: 37-year-old male presents with shortness of breath. Patient has a history of Down syndrome and known congestive heart failure. Patient was brought in by EMS. In route he was given an inhaler along with 40 of Lasix. EMS reports that caregiver stated that he has had about a 2-1/2 3 pound weight gain over the last week. Patient has some developmental delay and does not provide a lot of information. Patient reports that he hurts anywhere you touch him. He is otherwise pleasant but no significant complaints. When EMS arrived they report that he had low oxygen improved with with started on oxygen. No reports of fevers, chills, diarrhea, vomiting. There is mild cough. Associated symptoms: Deny abdominal pain, chest pain, dizziness, fever(s), nausea, palpitations or vomiting Review of Systems General: Reports: Other (Limited to developmental delay due to Down syndrome) Const: Denies: fever(s) or chills Card: Reports: edema; Denies: chest pain or palpitations Resp: Reports: dyspnea and non-productive cough GI: Denies: abdominal pain, nausea or vomiting Neuro: Denies: headache(s) or dizziness PFSH ED PFSH: Medical History Aftercare following left hip joint replacement surgery Down's syndrome H/O cardiac murmur Hip pain Hypothyroid Lumbar radiculopathy Osteoarthritis Pectus excavatum Sleep apnea Surgical History H/O adenoidectomy History of tonsillectomy Status post surgery of both feet Family History Mother Cancer lung cancer Father Cancer lung cancer Brother Suicide Social History Smoking and tobacco status: never smoked Alcohol intake: never History of recent travel: No Physical Exam Narrative: EXAM NARRATIVE: Physical exam is consistent with known Down syndrome Const: COMMON NORMALS: no acute distress and alert HENMT: COMMON NORMALS: hearing grossly normal bilaterally and moist oral mucous membranes OTHER: Mild congestion Resp: COMMON NORMALS: normal respiratory effort and No use of accessory muscles AUSCULTATION: diminished lung sounds (Mild) Cardio: COMMON NORMALS: regular rate and regular rhythm RATE: regular rate RHYTHM: regular rhythm Extremity: COMMON NORMALS: capillary refill normal and no pedal edema Neuro: SENSORIUM/ORIENTATION: Yes alert OTHER: Patient at baseline with some mild developmental delay, Psych: COMMON NORMALS: cooperative OTHER: Pleasant Course Vital Signs: Vital signs: Vital Signs Temperature 99.3 F 12/04/22 13:56 Pulse Rate 106 H 12/04/22 17:30 Respiratory Rate 28 H 12/04/22 17:30 Blood Pressure 159/137 12/04/22 17:30 Pulse Oximetry 92 12/04/22 17:30 Oxygen Delivery Me thod 12/04/22 17:30 Oxygen Flow Rate 4 12/04/22 17:30 MDM - SOB/Dyspnea Medical Decision Making Patient with bronchitis due to parainfluenza. Patient is requiring oxygen. I discussed case with Dr. Haynes who accepted patient for admission.. Patient otherwise is stable. Reviewed his x-rays which showed no acute pneumonias or infiltrates. Labs are stable. Lab Data 12/04/22 14:27 12/04/22 14:27 Labs/Radiology: Radiology Impressions Chest X-Ray 12/04/22 14:04 IMPRESSION: 1. Right upper lobe interstitial congestion decreased since prior 2. Low lung volumes seen. 3. Otherwise negative examination Laboratory Results WBC 8.7 10^3/uL (4.0-10.0) 12/04/22 14: RBC 5.24 10^6/uL (4.1-5.3) 12/04/22 14: Hgb 10.8 g/dL (11.7-16.6) L 12/04/22 14: Hct 38.1 % (42.0-52.0) L 12/04/22 14: MCV 72.7 fl (80-94) L 12/04/22 14: MCH 20.6 pg (28.0-34.0) L 12/04/22 14: MCHC 28.3 g/dL (30.0-36.0) L 12/04/22 14: RDW 21.7 % (12.1-15.1) H 12/04/22 14: Plt Count 437 10^3/cmm (130-400) H 12/04/22 14: MPV 9.0 fL (7.4-10.4) 12/04/22 14: Neut % (Auto) 72.6 % 12/04/22 14: Lymph % (Auto) 16.0 % 12/04/22 14: Hutch[place] % (Auto) 9.3 % 12/04/22 14: Eos % (Auto) 0.8 % 12/04/22 14: Baso % (Auto) 0.8 % 12/04/22 14: Neut # (Auto) 6.34 10^3/uL (1.8-7.7) 12/04/22 14: Lymph # (Auto) 1.4 10^3/uL (0.8-4.8) 12/04/22 14: [place] # (Auto) 0.8 10^3/uL (0.2-0.9) 12/04/22 14: Eos # (Auto) 0.1 10^3/uL (0.0-0.8) 12/04/22 14: Baso # (Auto) 0.1 10^3/uL (0.0-0.1) 12/04/22 14: Nucleated RBC % (auto) 0 % 12/04/22 14: Nucleated RBCs # 0.0 /100WBC 12/04/22 14: Sodium 136 mmol/L (136-145) 12/04/22 14: Potassium 3.6 mmol/L (3.5-5.1) 12/04/22 14: Chloride 95 mmol/L (98-107) L 12/04/22 14: Carbon Dioxide 33 mmol/L (22-29) H 12/04/22 14: Anion Gap 11.6 (5-19) 12/04/22 14: BUN 16 mg/dL (6-20) 12/04/22 14: Creatinine 1.0 mg/dL (0.7-1.2) 12/04/22 14:27 GFR Calculation 83.6 mL/min (90-130) L 12/04/22 14: Glucose 108 mg/dL (65-115) 12/04/22 14:27 Calculated Osmolality 284 mOsm/kg (285-295) L 12/04/22 14:27 Calcium 9.1 mg/dL (8.5-10.5) 12/04/22 14:27 Magnesium 2.0 mg/dL (1.7-2.3) 12/04/22 14:27 Total Bilirubin 0.4 mg/dL (0.15-1.2) 12/04/22 14:27 AST 19 U/L (0-40) 12/04/22 14:27 ALT 15 U/L (0-41) 12/04/22 14:27 Alkaline Phosphatase 105 U/L (40-130) 12/04/22 14: C-Reactive Protein 96.9 mg/L (0.0-4.9) H 12/04/22 14:27 Total Protein 7.7 g/dL (6.6-8.7) 12/04/22 14:27 Albumin 3.9 g/dL (3.5-5.2) 12/04/22 14:27 Globulin 3.8 g/dL (1.3-4.6) 12/04/22 14:27 Procalcitonin 0.22 ng/mL (0-0.5) 12/04/22 14:27 Nasal Influ A H1 2008 PCR Not detected (NOT DETECT) 12/04/22 14:35 Adenovirus (PCR) Not detected (NOT DETECT) 12/04/22 14:35 C. pneumoniae DNA (PCR) Not detected (NOT DETECT) 12/04/22 14:35 Coronavirus 229E (PCR) Not detected (NOT DETECT) 12/04/22 14:35 Human Metapneumovir PCR Not detected (NOT DETECT) 12/04/22 14:35 Influenza A (H1) PCR Not detected (NOT DETECT) 12/04/22 14:35 Influenza A (H3) PCR Not detected (NOT DETECT) 12/04/22 14:35 Influenza Type A (PCR) Not detected (NOT DETECT) 12/04/22 14:35 Influenza Type B (PCR) Not detected (NOT DETECT) 12/04/22 14:35 M. pneumoniae (PCR) Not detected (NOT DETECT) 12/04/22 14:35 Parainfluenza 1 (PCR) Not detected (NOT DETECT) 12/04/22 14:35 Parainfluenza 2 (PCR) Not detected (NOT DETECT) 12/04/22 14:35 Parainfluenza 3 (PCR) Not detected (NOT DETECT) 12/04/22 14:35 Parainfluenza 4 (PCR) Detected (NOT DETECT) A 12/04/22 14:35 RSV Type A (PCR) Not detected (NOT DETECT) 12/04/22 14:35 RSV Type B (PCR) Not detected (NOT DETECT) 12/04/22 14:35 Entero/Rhino (PCR) Not detected (NOT DETECT) 12/04/22 14:35 SARS-CoV-2 (PCR) Not detected (NOT DETECT) 12/04/22 14:35 Discharge Plan Discharge Patient Disposition: Admitted As Inpatient Clinical Impression: Bronchitis due to parainfluenza virus, Hypoxia, Down syndrome, unspecified Condition: Stable Coding Level of Care Code ED Processing Associate for Nery Fwd Exam Detailed
[2022-12-04] MEDS: ipratropium-albuterol 3 mL Neb INHALATION (14:41)
[2022-12-04 15:03] LABS: Basophils # 0.1 10^3/uL (0.0-0.1); Basophils % 0.8 %; Eosinophils # 0.1 10^3/uL (0.0-0.8); Eosinophils % 0.8 %; Hematocrit 38.1 % (42.0-52.0); Hemoglobin 10.8 g/dL (11.7-16.6); Lymphocytes # 1.4 10^3/uL (0.8-4.8); Mean Corpuscular HGB Conc 28.3 g/dL (30.0-36.0); Mean Corpuscular Hemoglobin 20.6 pg (28.0-34.0); Mean Corpuscular Volume 72.7 fl (80-94); Monocytes # 0.8 10^3/uL (0.2-0.9); Monocytes % 9.3 %; Neutrophils # 6.34 10^3/uL (1.8-7.7); Neutrophils % 72.6 %; Nucleated Red Blood Cells % 0 %; Platelet Count 437 10^3/cmm (130-400); Red Blood Count 5.24 10^6/uL (4.1-5.3); Red Cell Distribution Width 21.7 % (12.1-15.1); White Blood Count 8.7 10^3/uL (4.0-10.0)
[2022-12-04 15:37] LABS: Alanine Aminotransferase 15 U/L (0-41); Albumin Level 3.9 g/dL (3.5-5.2); Alkaline Phosphatase 105 U/L (40-130); Anion Gap 11.6 (5-19); Aspartate Amino Transferase 19 U/L (0-40); Blood Urea Nitrogen 16 mg/dL (6-20); C Reactive Protein 96.9 mg/L (0.0-4.9); Calcium 9.1 mg/dL (8.5-10.5); Carbon Dioxide 33 mmol/L (22-29); Chloride 95 mmol/L (98-107); Globulin 3.8 g/dL (1.3-4.6); Glomerular Filtration Rate 83.6 mL/min (90-130); Glucose 108 mg/dL (65-115); Osmolality Calculated 284 mOsm/kg (285-295); Potassium 3.6 mmol/L (3.5-5.1); Sodium 136 mmol/L (136-145); Total Bilirubin 0.4 mg/dL (0.15-1.2); Total Protein 7.7 g/dL (6.6-8.7)
[2022-12-04 15:41] LABS: Procalcitonin 0.22 ng/mL (0-0.5)
[2022-12-04 16:54] LABS: Adenovirus Not Detected (NOT DETECT); Chlamydia Pneumoniae Not Detected (NOT DETECT); Coronavirus 229E,HKU1,NL63,OC4 Not Detected (NOT DETECT); Human Metapneumovirus Not Detected (NOT DETECT); Human Rhinovirus/Enterovirus Not Detected (NOT DETECT); Influenza A Not Detected (NOT DETECT); Influenza A H1 Not Detected (NOT DETECT); Influenza A H1-2009 Not Detected (NOT DETECT); Influenza A H3 Not Detected (NOT DETECT); Influenza B Not Detected (NOT DETECT); Mycoplasma Pneumoniae Not Detected (NOT DETECT); Parainfluenza Virus Type 1 Not Detected (NOT DETECT); Parainfluenza Virus Type 2 Not Detected (NOT DETECT); Parainfluenza Virus Type 3 Not Detected (NOT DETECT); Parainfluenza Virus Type 4 Detected (NOT DETECT); Respiratory Syncytial Virus A Not Detected (NOT DETECT); Respiratory Syncytial Virus B Not Detected (NOT DETECT); SARS-COV-2 Not Detected (NOT DETECT)
--- NOTE | 2022-12-04 17:26 | PC.NURSE ---
called lab to check status of respiratory panel.
--- NOTE | 2022-12-04 17:40 | P.HP_ITS ---
Providers/Chief Complaint Admitting Physician: Mateusz Haynes MD Primary Care Provider: Mateusz Lynn MD Chief Complaint: SOB History of Present Illness Junior Lopez is a 37 year old male with a past medical history significant for Down syndrome, sleep apnea organism, lumbar radiculopathy, cardiac heart murmur who presents to the emergency department with shortness of breath. Patient's sister who is his legal guardian is present and helps in the history. She states that she sees him almost daily in the jail where he spent since June. She states that symptoms began last night with shortness of breath. He also had a fever of 101. Patient also reports of cough. Denies aggravating or alleviating factors. He does have a history of Down syndrome and needs help with most his ADLs other than eating. She notes that he does have congestive heart failure that previously required ICU level of care. She reports left hip surgery in June with multiple complications afterwards which made him initially nonweightbearing and now he is so debilitated he can barely take a few steps without becoming short of breath. He is able to self transfer with a walker. Patient denies other alleviating or aggravating factors. Denies chest pain, abdominal pain, or chills. Review of Systems Narrative: A complete review of systems was obtained and is negative except as stated in HPI. Medications/Allergies Home Medications Medication Instructions Recorded Confirmed Last Taken Type allopurinol 100 mg tablet 100 mg PO DAILY@1000 02/26/21 12/04/22 12/04/22 History citalopram 40 mg tablet 40 mg PO DAILY@1000 02/26/21 12/04/22 12/04/22 History cholecalciferol (vitamin D3) 25 25 mcg PO DAILY 07/16/22 12/04/22 12/04/22 History mcg (1,000 unit) capsule (Vitamin D3) omeprazole 20 mg capsule,delayed 20 mg PO DAILY 07/16/22 12/04/22 12/04/22 History release sennosides 8.6 mg-docusate sodium 1 tab-cap PO BID 07/16/22 12/04/22 12/04/22 History 50 mg tablet (Senna-S) tramadol 50 mg tablet 50 mg PO Q6H PRN Pain 07/16/22 12/04/22 Unknown History aspirin 81 mg tablet,delayed 81 mg PO DAILY #90 tabs 07/20/22 12/04/22 12/04/22 Rx release (Adult Aspirin Regimen) acetaminophen 500 mg tablet 500 mg PO Q6H PRN Pain 12/04/22 12/04/22 12/04/22 History furosemide 40 mg tablet 40 mg PO DAILY 12/04/22 12/04/22 12/04/22 History levothyroxine 125 mcg tablet 125 mcg PO DAILY 12/04/22 12/04/22 12/04/22 History naloxone 0.4 mg/mL injection 0.4 mg SUBCUT Q2M PRN overdose 12/04/22 12/04/22 Unknown History solution potassium chloride 10 mEq 10 meq PO DAILY 12/04/22 12/04/22 12/04/22 History tablet,extended release triamcinolone acetonide 0.1 % 1 applic topical DAILY PRN Rash 12/04/22 12/04/22 Unknown History topical cream Allergies Allergy/AdvReac Type Severity Reaction Status Date / Time No Known Allergies Allergy Verified 10/25/21 15:24 PFSH Acute PFSH: Medical History (Updated 12/04/22 @ 17:56 by Mateusz Haynes MD) Aftercare following left hip joint replacement surgery Down's syndrome H/O cardiac murmur Hip pain Hypothyroid Lumbar radiculopathy Osteoarthritis Pectus excavatum Sleep apnea Surgical History H/O adenoidectomy History of tonsillectomy Status post surgery of both feet Family History Mother Cancer lung cancer Father Cancer lung cancer Brother Suicide Social History Smoking and tobacco status: never smoked Alcohol intake: never History of recent travel: No Vitals/I&O/Wt Last Vital Signs Temp 99.3 F 12/04/22 13:56 Pulse 106 H 12/04/22 17:30 Resp 28 H 12/04/22 17:30 BP 159/137 12/04/22 17:30 Pulse Ox 92 12/04/22 17:30 O2 Del Method 12/04/22 17:30 O2 Flow Rate 4 12/04/22 17:30 Weight last 48 hrs Weight 93.44 kg Physical Exam Narrative: General: Patient is awake and alert. Moderate respiratory distress. Head: Down syndrome-like features. EOM intact. Neck: No JVD. Cardiovascular: RRR. No gallops. No murmurs. No peripheral edema. Lungs: Breath sounds are coarse. Diminished at bilateral bases. Use of accessory muscles, no crackles or wheezes. Skin: No jaundice. No rashes. Abdomen: Normal bowel sounds, abdomen soft and nontender. Genito Urinary: Genital exam not performed since complaints not related. Rectal: Rectal exam not performed since no symptoms indicated blood loss. Extremities: No cyanosis or clubbing. Musculoskeletal: No swollen or erythematous joints. Neurological: Moves all 4 extremities. No myoclonus. Data 12/04/22 14:27 12/04/22 14:27 A&P Assessment and plan (1) Bronchitis due to parainfluenza virus: Supportive care Tylenol for fever Supplemental oxygen (2) Hypoxia: Provide supplemental oxygen for SPO2 goal of 90 to 96% (3) Down syndrome, unspecified: He will need assistance with most of the ADLs other than feeding self (4) Congestive heart failure: Compensated on exam (5) Sleep apnea: Noncompliant with CPAP Plan DVT prophylaxis: Lovenox CODE STATUS: Full code Attestations Medical Necessity Statement*: Patient requires hospitalization for acute hypoxia secondary to parainfluenza virus and bronchitis with expected hospitalization across 2 midnights. Coding Level of Care Code Acute Code for [facility] Diagnoses Bronchitis due to parainfluenza virus J20.4 Hypoxia R09.02 Down syndrome, unspecified Q90.9 Congestive heart failure I50.9 Sleep apnea G47.30
[2022-12-04] MEDS: dexamethasone 10 mg/mL INJ IVP (18:02)
[2022-12-04] MEDS: albuterol 2.5 mg/3 mL Neb INHALATION (18:33)
[2022-12-04] MEDS: sennosides-docusate Tablet 1 TAB PO (23:05)
[2022-12-04] MEDS: cetylpyridinium Lozenge 1 EACH MUCOUS MEM (23:05)
[2022-12-05] VITALS (55 sets, daily range): BP systolic 94–178; BP diastolic 57–104; PULSE 63–110; RESP 13–38; TEMP 37.3–37.4; O2SAT 65–100; BMI 41.2
[2022-12-05] MEDS: ipratropium-albuterol 3 mL Neb INHALATION ×8 (00:24→23:15)
[2022-12-05 00:45] LABS: Glucose Point of Care 159 mg/dL (70-110)
--- NOTE | 2022-12-05 00:48 | XRR_ITS ---
PROCEDURE INFORMATION: Exam: XR Chest Exam date and time: 12/05/2022 1:02 AM Age: 37 years old Clinical indication: Shortness of breath; Patient HX: On bipap; Additional info: SOB TECHNIQUE: Imaging protocol: Radiologic exam of the chest. Views: 1 view. COMPARISON: CR (CHEST, ) 12/04/2022 2:08 PM FINDINGS: Tubes, catheters and devices: EKG leads overlie the chest. Support tubes overlie the left side of the neck. Lungs: Low lung volumes and bronchovascular crowding. Increased pulmonary vascularity. Increased pulmonary vascular hilar shadows. Increased interstitial opacities throughout both lungs. Findings are concerning for pulmonary edema. Atypical infection can give a similar appearance. There are bibasilar opacities which may represent atelectasis, inflammation, or infection. Pleural spaces: Small layering pleural effusions are not excluded. No large pleural effusion. No pneumothorax. Heart/Mediastinum: Unremarkable. No cardiomegaly. Bones/joints: Unremarkable. XR/XR chest 1V portable [id number] IMPRESSION: 1. Pulmonary congestion and cardiomegaly. Findings may represent congestive heart failure. 2. Superimposed infection such as pneumonia can not be excluded.
--- NOTE | 2022-12-05 00:49 | ECG_ITS ---
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 Measurements Intervals [place] Rate: 94 P: 66 VA: 155 QRS: 87 QRSD: 106 T: 27 QT: 360 QTc: 451 Interpretive Statements SINUS RHYTHM POSSIBLE RIGHT ATRIAL ENLARGEMENT [0.25mV P-WAVE] LOW QRS VOLTAGE IN PRECORDIAL LEADS [QRS DEFLECTION < 1.0 mV IN CHEST LEADS] INCOMPLETE RIGHT BUNDLE BRANCH BLOCK [90+ ms QRS DURATION, TERMINAL R IN V1/V2, 40+ ms S IN I/aVL/V4/V5/V6] Compared to ECG 07/19/2022 13:24:04 Low QRS voltage now present Incomplete right bundle-branch block now present T-wave abnormality no longer present Electronically Signed On 12-05-2022 7:12:17 SENIOR ADVISOR by Bharath Urrutia M.D. [id number]
--- NOTE | 2022-12-05 00:50 | PC.NURSE ---
Rapid response called to patients room for respiratory distress. Transferred to ICU via bed on O2 per non-rebreather. Respirations labored with audible inspiratory and expiratory wheezing noted. Patient awake and answering questions. Dr. Gavin at bedside. 40mg Lasix given IVP, Ativan 0.05mg given IVP, and Magnesium 2g started IV. Placed on bipap per RT and precedex drip started.
[2022-12-05] MEDS: LORazepam 2 mg/mL INJ 1 mL 0.25 MG IVP (00:51)
[2022-12-05] MEDS: FUROsemide 10 mg/mL SDV 4mL 40 MG IVP ×4 (00:51→19:36)
[2022-12-05 00:53] LABS: ABG PH Result 7.36 (7.35-7.45); Alveolar-Arterial Oxygen Gradi 31.5 mmHg (5-10); Arterial Blood Gas Hematocrit 36.3 % (42-52); Base Excess ABG 7.4 mmol/L (-2.0-2.0); Blood Gas Allen Test Pos; Blood Gas Sample Type Arterial; Carboxyhemoglobin 1.1 %THgb (0.4-20.1); HCO3 ABG 34.6 mmol/L (22-26); HGB O2 Sat 98.5 % (95-100); Ionized Calcium Level - ABG 1.1 mmol/L (1.1-1.4); Methemoglobin 0.9 % (0.4-1.5); Oxygen Device NRB; Oxygen Saturation ABG > 100.0; Potassium Level - ABG 4.2 mmol/L (3.5-5.0); Total Hemoglobin 11.9 g/dL (14-18)
[2022-12-05 00:55] LABS: ABG PCO2 60.8 mmHg (35-45)
--- NOTE | 2022-12-05 00:55 | PM.CCNAC ---
Critical Care Event Note The high probability of a clinically significant, sudden or life threatening deterioration of the patient's [] system(s) required my full and direct attention, intervention and personal management. The critical care time is as shown. This time is in addition to time spent performing any reported procedures but includes the following: [x] Data and vital sign review and interpretation [x] Patient assessment, examination and intervention [x] Documentation [x] Medication orders and management Critical Care Time Code activated: No Critical Care Time (min): 45 Additional information about critical care time: Rapid response was called at roughly 12:37 AM for concerns for hypoxia, respiratory failure -Upon arrival Deandre was not alert, he did open his eyes, did not follow commands, respiratory rate anywhere between 20-30, O2 sats in the high 90s, on a 15 L nonrebreather, has a nasal flaring some intercostal retractions, normotensive, tachycardic, heart rates in the mid 100s -Wheezing and crackles in all lung de dios, he is barrel chested -Upon review of patient's labs, patient was admitted for respiratory failure, hypoxia secondary to parainfluenza virus, has a history of CHF, CHF exacerbation, history of BiPAP noncompliance, [facility], -Was reexamined in the ICU when he was moved down -He is much more alert awake, following commands he knows his name, placed on BiPAP -ABG shows hypercarbic hypoxic respiratory failure -Likely from CHF exacerbation, he is wheezing -Patient was given 40 of Lasix, placed on BiPAP, will give 2 g of mag, Ativan for agitation placed on Precedex drip -125 Solu-Medrol followed by 40 every 8 hours -Repeat chest x-ray -His chest x-ray showed right upper lobe interstitial congestion, possible aspiration, I will place him onvanc and Zosyn for now until blood cultures come back negative, get sputum cultures -We will monitor over the next few hours, if he clinically improves, we can get by by not intubating him however if his respiratory status worsens we will go ahead and intubate him he is a full code Coding Level of Care Code Acute Code for [facility] Fwd
[2022-12-05] MEDS: magnesium sulfate premix 2 GM/50 ML PIGGYBACK IV ×2 (00:58→03:35)
--- NOTE | 2022-12-05 00:58 | PC.NURSE ---
placed call to Toya) to inform of patient decline, transferred to icu.
[2022-12-05] MEDS: budesonide 0.5 mg/2 mL Neb INHALATION ×3 (01:01→19:48)
[2022-12-05] MEDS: metOLazone 5 MG Tablet PO (01:03)
[2022-12-05] MEDS: dexmedetomidine 400 MCG in sodium chloride 0.9% (100 ml) 100 ML IV (01:12)
--- NOTE | 2022-12-05 01:28 | PC.PHAR ---
Pharmacokinetic dosing service Date: 12/05/22 Time: 129 Objective: Patient: Deandre Lopez Floor: ICU-8 Age: 37 yo Serum creatinine: 1.0 mg/dL Height: 59.0 Inches Weight (kg): 93.44 Diagnosis: Relevant medical/social history: Cultures and sensitivities: Other labs: Assessment: IBW (kg): 49.17 Dosing wt(kg): 93.44 Estimated Creatinine clearance (ml/min): 69.7 CRCL method: Cockcroft and Gault using ibw(default). Drug selected: Vancomycin Loading dose (mg): 0 Vd (liters): 84.1 (factor used: 0.9 L/kg) Navin (hr-1): 0.062 Half life (hrs): 11.18 Recommended dose: 1500 mg Interval: 12 hrs Infusion time (hrs): 1.5 Predicted peak (mcg/mL): 32.5 Predicted trough (mcg/mL): 16.95 Total body weight is being used for vancomycin dosing. Renal function is stable [ ] /unstable [ ] Recommendations: Give Vancomycin 1500 mg q 12 hrs with an expected Cpeak of 32.5 mcg/ml and an expected Ctrough of 16.95 mcg/ml Renal dosing of other antibiotics (review renal dosing of other medications and list guidelines here): Thank you for the consult, will continue to follow. Signature: Nuria Vela [facility]
[2022-12-05] MEDS: vancomycin 1,500 MG/300 ML PIGGYBACK 200 MG IV ×2 (02:02→14:30)
--- NOTE | 2022-12-05 02:03 | PC.NURSE ---
late entry:0036-called rapid response on patient/transferred to icu.
--- NOTE | 2022-12-05 03:04 | ECG_ITS ---
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 Measurements Intervals [place] Rate: 78 P: 65 [place]: 156 QRS: 87 QRSD: 100 T: 44 QT: 406 QTc: 462 Interpretive Statements SINUS RHYTHM POSSIBLE RIGHT ATRIAL ENLARGEMENT [0.25mV P-WAVE] POSSIBLE LEFT ATRIAL ENLARGEMENT [-0.1mV P-WAVE IN V1/V2] LOW QRS VOLTAGE IN PRECORDIAL LEADS [QRS DEFLECTION < 1.0 mV IN CHEST LEADS] INCOMPLETE RIGHT BUNDLE BRANCH BLOCK [90+ ms QRS DURATION, TERMINAL R IN V1/V2, 40+ ms S IN I/aVL/V4/V5/V6] Compared to ECG 12/05/2022 01:12:49 No significant changes Electronically Signed On 12-05-2022 7:18:14 PHYSICIST SOLID EARTH by Bharath Urrutia M.D. [id number]
[2022-12-05] MEDS: piperacillin-tazobactam 3.375 GM in sodium chloride 0.9% (plus) 50 ML IV ×3 (03:21→18:13)
--- NOTE | 2022-12-05 03:24 | XRR_ITS ---
PROCEDURE INFORMATION: Exam: XR Chest Exam date and time: 12/05/2022 3:31 AM Age: 37 years old Clinical indication: Device placement; Ett placement (vent status); Additional info: Post-intubation TECHNIQUE: Imaging protocol: Radiologic exam of the chest. Views: 1 view. COMPARISON: CR (CHEST, ) 12/05/2022 1:02 AM FINDINGS: Tubes, catheters and devices: ET tube is not seen. Lungs: Low lung volumes accentuate bronchovascular markings and cardiac silhouette. Redemonstration of similar-appearing bilateral hazy ground-glass and patchy airspace opacities and prominence of the pulmonary vasculature. Pleural spaces: No pneumothorax. Heart/Mediastinum: Similar appearing cardiomegaly. Bones/joints: No acute fracture. XR/XR chest 1V portable [id number] IMPRESSION: 1. ET tube is not seen. Correlate clinically. 2. Similar-appearing cardiomegaly and pulmonary vascular congestion, cannot exclude superimposed infectious and/or inflammatory process. Correlate and follow-up as clinically indicated.
--- NOTE | 2022-12-05 03:31 | PC.NURSE ---
Patient in respiratory distress, audible inspiratory and expiratory wheezing noted. O2 sats decreased to 60's, not obtaining tidal volumes on bipap. RT to bedside, Dr Gavin to bedside. Intubation supplies obtained, cx-ray done, breathing treatment given per RT, Ativan 0.5mg given IVP, increased precedex to 0.4 Order given for 2 grams Mag IV.
[2022-12-05 03:46] LABS: D Dimer 1.15 ug/mIFEU (0-0.59)
[2022-12-05 03:48] LABS: Lactate (Lactic Acid level) 1.3 mmol/L (0.5-2.2)
[2022-12-05 03:51] LABS: Troponin(5th) Baseline 9 ng/L (0-15)
[2022-12-05 03:58] LABS: NT Pro B Type Natriuretic Pept 237 pg/mL (0-125); Procalcitonin 0.16 ng/mL (0-0.5)
[2022-12-05 04:40] LABS: ABG PCO2 58.8 mmHg (35-45); ABG PH Result 7.37 (7.35-7.45); Arterial Blood Gas Hematocrit 34.2 % (42-52); Base Excess ABG 7.5 mmol/L (-2.0-2.0); Blood Gas Operator Identificat JB; Blood Gas Sample Site Brachial, left; Blood Gas Sample Type Arterial; HCO3 ABG 34.3 mmol/L (22-26); Oxygen Device BIPAP
[2022-12-05] MEDS: levalbuterol 1.25 mg/3 mL Neb INHALATION (04:54)
[2022-12-05 05:57] LABS: Troponin 5 2HR Delta 2.5 ABS# (0-10)
--- NOTE | 2022-12-05 06:06 | ECG_ITS ---
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 Measurements Intervals [place] Rate: 72 P: 66 CT: 160 QRS: 85 QRSD: 105 T: 46 QT: 435 QTc: 479 Interpretive Statements SINUS RHYTHM POSSIBLE RIGHT ATRIAL ENLARGEMENT [0.25mV P-WAVE] POSSIBLE LEFT ATRIAL ENLARGEMENT [-0.1mV P-WAVE IN V1/V2] LOW QRS VOLTAGE IN PRECORDIAL LEADS [QRS DEFLECTION < 1.0 mV IN CHEST LEADS] INCOMPLETE RIGHT BUNDLE BRANCH BLOCK [90+ ms QRS DURATION, TERMINAL R IN V1/V2, 40+ ms S IN I/aVL/V4/V5/V6] Compared to ECG 12/05/2022 03:04:26 No significant changes Electronically Signed On 12-05-2022 7:19:01 VIDEO PRESENTATION OPERATOR by Bharath Urrutia M.D. [id number]
--- NOTE | 2022-12-05 08:37 | P.PN_ITS ---
Subjective Subjective: Patient was seen and examined this morning, currently tolerating BiPAP well, documented urine output:1350 CTA chest and lower extremity Doppler vein done. Bedside 2D echo done: Difficult study: Decent LVEF : Around 60%. Medications: Medication Review Details: Generic Name Dose Route Start Last Admin Trade Name Freq PRN Reason Stop Dose Admin Albuterol/Ipratrop ium 3 ml 12/05/22 01:00 12/05/22 08:26 Ipratropium-Albu terol 3 Ml Neb INHALATION 3 ml Q4H.RESPIRATORY S CH Administration Furosemide 40 mg 12/05/22 08:00 12/05/22 08:34 Furosemide 10 Mg /Ml Sdv 4ml IVP 40 mg Q12H JANET Administration Dexmedetomidine HC l 400 mcg/ 104 mls @ 0 mls/h r 12/05/22 01:00 12/05/22 05:00 Sodium Chloride IV 0.3 mcg/kg/hr .Q0M JANET 7.29 mls/hr Titration Protocol Per Protocol Piperacillin Sod/T azobactam 50 mls @ 12.5 mls /hr 12/05/22 03:00 12/05/22 07:38 Sod 3.375 gm/ So dium Chloride IV Infused Q8H JANET Infusion Protocol Vancomycin/PEG/NAD A/Lysine/Water 1,500 mg in 300 m ls @ 200 mls/hr 12/05/22 02:00 12/05/22 03:32 Vancocin IV Infused Q12H JANET Infusion Methylprednisolone Sodium Succinate 40 mg 12/05/22 08:00 12/05/22 08:34 Methylprednisolo ne Sod Succ 40 Mg/ Ml Inj IVP 40 mg Q8H JANET Administration Senna/Docusate Sod ium 1 tab 12/04/22 22:28 12/04/22 23:05 Sennosides-Docus ate Tablet PO 1 tab BID JANET Administration Vitals/I&O/Wt Last Vital Signs Temp 99.4 F 12/05/22 04:00 Pulse 63 12/05/22 08:28 Resp 30 H 12/05/22 08:00 BP 104/57 12/05/22 06:30 Pulse Ox 100 12/05/22 08:28 O2 Del Method 12/05/22 08:00 O2 Flow Rate 15 12/05/22 00:24 FiO2 60 12/05/22 08:28 12/04/22 12/05/22 12/05/22 22:59 06:59 14:59 Intake Total 314.459 / 314.459 150 / 150 Output Total 1350 / 1350 Balance -1035.541 / -1035.541 150 / 150 Weight last 48 hrs Weight 91.444 kg Weight 92.533 kg Weight 93.44 kg Physical Exam HENMT: COMMON NORMALS: normocephalic and atraumatic HEAD & SCALP: normocephalic and atraumatic Resp: COMMON NORMALS: clear to auscultation bilaterally AUSCULTATION: clear to auscultation bilaterally OTHER: Diminished air entry bilaterally, minimal expiratory wheezing. Cardio: COMMON NORMALS: regular rate, regular rhythm, S1 normal heart sound present, S2 normal heart sound present, No gallops present (Cardio), No murmurs present (Cardio), No rub (Cardio) and Peripheral pulses 2+ throughout RATE: regular rate RHYTHM: regular rhythm HEART SOUNDS: S1 normal heart sound present and S2 normal heart sound present PERIPHERAL PULSES: Peripheral pulses 2+ throughout GI: COMMON NORMALS: Normal to inspection, nondistended, normoactive bowel sounds present, Soft to palpation, non-tender, No hepatosplenomegaly present and no masses AUSCULTATION: Yes normoactive bowel sounds PALPATION: Yes Soft to palpation and Yes No hepatosplenomegaly present RECTAL EXAM: Yes deferred Extremity: COMMON NORMALS: no clubbing, cyanosis or edema and no pedal edema Urinary Catheter Management: Gruber: Cath Placed During This Visit: yes Reason for Continuing Indwelling Catheter: Accurate Measurement of Urinary Outpu t in Critically Ill Patients Urinary Catheter Date of Insertion: 12/05/22 Urinary Catheter Time of Insertion: 01:30 Data 12/04/22 14:27 12/04/22 14:27 Micro: Microbiology 12/05/22 02:58 Blood Culture - Preliminary Blood SPECIMEN COLLECTED 12/05/22 02:56 Blood Culture - Preliminary Blood SPECIMEN COLLECTED A&P Assessment and plan (1) Bronchitis due to parainfluenza virus: Supportive care Tylenol for fever Supplemental oxygen (2) Hypoxia: Provide supplemental oxygen for SPO2 goal of 90 to 96% (3) Down syndrome, unspecified: He will need assistance with most of the ADLs other than feeding self (4) Congestive heart failure: Compensated on exam (5) Sleep apnea: Noncompliant with CPAP (6) Respiratory failure with hypoxia and hypercapnia: Respiratory failure with hypoxia and hypercapnia: Secondary to pneumonia/heart failure with preserved ejection fraction.. CTA chest: No pulmonary embolism,Scattered groundglass opacifications, greatest in the RIGHT lung consistent with pneumonitis.Developing pneumonia RIGHT upper lobe suspected due to the increasing consolidation. Lower extremity Dopplers were negative for DVT. Blood culture Sputum gram stain and culture MRSA nare positive Urine Legionella antigen negative bacterial antigen panel negative Currently on vancomycin Zosyn Lasix 40 IV twice daily Continue BiPAP Supplemental oxygen as needed to maintain SPO2 greater than 95 DuoNebs Solu-Medrol 40 IV every 8 hours Budesonide inhaler Plan DVT prophylaxis: Lovenox CODE STATUS: Full code Attestations Medical Necessity Statement*: Hospital for management of respiratory failure Critical Care Time: The high probability of a clinically significant, sudden or life threatening deterioration of the patient's [] system(s) required my full and direct attention, intervention and personal management. The critical care time is as shown. This time is in addition to time spent performing any reported procedures but includes the following: [x] Data and vital sign review and interpretation [x] Patient assessment, examination and intervention [x] Documentation [x] Medication orders and management Critical Care Time (min): 30 Coding Level of Care Code Acute Code for Chg Fwd Exam Detailed Diagnoses Bronchitis due to parainfluenza virus J20.4 Hypoxia R09.02 Down syndrome, unspecified Q90.9 Congestive heart failure I50.9 Sleep apnea G47.30 Respiratory failure with hypoxia and hypercapnia J96.91; J96.92
--- NOTE | 2022-12-05 09:11 | USCV_ITS ---
Deandre Lopez Age: 37 Gender: M : 1985 Exam Date: 12/05/2022 10:09 Ordering Phys: Apolinar Orellana MD Technologist: Narinder Ross Exam Location: [facility] [place]: short of breath HISTORY: Lower extremity edema. PROCEDURES: The venous duplex Doppler examination of both lower extremities was performed in the standard fashion. The following venous structures were evaluated: common femoral vein, profunda vein, proximal portion of the greater saphenous vein, superficial femoral vein, and the popliteal vein. In addition, the posterior tibial and peroneal trunk were evaluated. FINDINGS: Normal 2-D Doppler and augmentation and compressibility throughout the lower extremity venous structures. Additional imaging through the proximal calf veins also reveals no thrombus. Limited evaluation of the greater saphenous vein is patent with no thrombus. CONCLUSIONS No DVT bilateral lower extremities. Dr. Carolann Li DO (Electronically Signed) Final Date: 05 December 2022 12:06 S
[2022-12-05 09:19] LABS: Basophils % 0.2 %; Eosinophils % 0.2 %; Hematocrit 40.1 % (42.0-52.0); Hemoglobin 11.1 g/dL (11.7-16.6); Lymphocytes # 0.6 10^3/uL (0.8-4.8); Lymphocytes % 10.5 %; Mean Corpuscular HGB Conc 27.7 g/dL (30.0-36.0); Mean Corpuscular Hemoglobin 20.4 pg (28.0-34.0); Mean Corpuscular Volume 73.7 fl (80-94); Mean Platelet Volume 10.3 fL (7.4-10.4); Monocytes # 0.1 10^3/uL (0.2-0.9); Monocytes % 1.6 %; Nucleated Red Blood Cells % 0 %; Platelet Count 361 10^3/cmm (130-400); Red Blood Count 5.44 10^6/uL (4.1-5.3); Red Cell Distribution Width 21.7 % (12.1-15.1); White Blood Count 6.1 10^3/uL (4.0-10.0)
[2022-12-05 09:40] LABS: Alanine Aminotransferase 15 U/L (0-41); Albumin Level 3.6 g/dL (3.5-5.2); Alkaline Phosphatase 102 U/L (40-130); Anion Gap 18.4 (5-19); Aspartate Amino Transferase 19 U/L (0-40); Blood Urea Nitrogen 22 mg/dL (6-20); Carbon Dioxide 30 mmol/L (22-29); Chloride 94 mmol/L (98-107); Globulin 4.4 g/dL (1.3-4.6); Glomerular Filtration Rate 74.9 mL/min (90-130); Glucose 219 mg/dL (65-115); Osmolality Calculated 298 mOsm/kg (285-295); Potassium 3.4 mmol/L (3.5-5.1); Sodium 139 mmol/L (136-145); Total Bilirubin 0.4 mg/dL (0.15-1.2)
[2022-12-05 09:44] LABS: Troponin 5 6HR 8.42 ng/L (0-15)
[2022-12-05 09:56] LABS: Troponin 5 6HR Delta -0.58 ng/L (0-12)
--- NOTE | 2022-12-05 10:13 | CT_ITS ---
WS: [id number] CT CHEST ANGIOGRAPHY WITH REFORMATS HISTORY: r/o p/e TECHNIQUE: Contiguous axial images are obtained through the chest during arterial injection of intrav enous contrast. Images are reconstructed to evaluate the pulmonary arteries. MIP imaging also reviewe d. All CT scans at [facility] use at least one of these dose optimization techniques: automat ed exposure control; mA and/or kV adjustment per patient size (includes targeted exams where dose is matched to clinical indication); or iterative reconstruction. CONTRAST: Omnipaque 350; 100 mL IV. DLP: 535.21 mGy.cm COMPARISON: 07/15/2022 Good opacification of the pulmonary arteries. Limited opacification of the upper lobe pulmonary arteries No central defects are identified. There is no large central pulmonary embolism. Lung volumes are decreased. Scattered groundglass areas of opacification and developing pneumonia gre atest in the RIGHT upper lobe. Partial atelectasis LEFT lower lobe. Mild deformity the heart and narrowed thorax. Mild cardiomegaly. No adenopathy. Mild atherosclerosis aorta. Normal size pulmonary artery. Small hiatal hernia. CT/CT angio chest PE protcl [id number] IMPRESSION: 1. No pulmonary embolism. Limited opacification RIGHT upper lobe pulmonary art eries. 2. Scattered groundglass opacifications, greatest in the RIGHT lung consistent with pneumonitis. Developing pneumonia RIGHT upper lobe suspected due to the i ncreasing consolidation. 3. Mild cardiomegaly.
[2022-12-05] MEDS: iohexol 350 mg/mL 500 mL Btl (per mL) IV (14:52)
[2022-12-05] MEDS: sennosides-docusate Tablet 1 TAB PO (17:11)
[2022-12-06] VITALS (35 sets, daily range): BP systolic 93–144; BP diastolic 57–97; PULSE 68–92; RESP 11–35; TEMP 36.8–37.2; O2SAT 90–96
[2022-12-06] MEDS: vancomycin 1,500 MG/300 ML PIGGYBACK 200 MG IV ×2 (01:36→14:29)
[2022-12-06] MEDS: piperacillin-tazobactam 3.375 GM in sodium chloride 0.9% (plus) 50 ML IV ×3 (03:12→18:53)
[2022-12-06] MEDS: ipratropium-albuterol 3 mL Neb INHALATION ×6 (03:18→23:09)
[2022-12-06 04:14] LABS: Basophils % 0.1 %; Hematocrit 40.6 % (42.0-52.0); Hemoglobin 11.4 g/dL (11.7-16.6); Lymphocytes # 0.8 10^3/uL (0.8-4.8); Lymphocytes % 5.1 %; Mean Corpuscular HGB Conc 28.1 g/dL (30.0-36.0); Mean Corpuscular Hemoglobin 20.5 pg (28.0-34.0); Mean Corpuscular Volume 72.9 fl (80-94); Mean Platelet Volume 9.6 fL (7.4-10.4); Monocytes # 0.9 10^3/uL (0.2-0.9); Monocytes % 5.5 %; Neutrophils # 14.52 10^3/uL (1.8-7.7); Neutrophils % 88.9 %; Nucleated Red Blood Cells % 0 %; Platelet Count 497 10^3/cmm (130-400); Red Blood Count 5.57 10^6/uL (4.1-5.3); Red Cell Distribution Width 21.8 % (12.1-15.1); White Blood Count 16.3 10^3/uL (4.0-10.0)
[2022-12-06 04:30] LABS: Alanine Aminotransferase 16 U/L (0-41); Albumin Level 4.2 g/dL (3.5-5.2); Alkaline Phosphatase 99 U/L (40-130); Aspartate Amino Transferase 23 U/L (0-40); Blood Urea Nitrogen 31 mg/dL (6-20); Calcium 9.3 mg/dL (8.5-10.5); Carbon Dioxide 39 mmol/L (22-29); Globulin 4.3 g/dL (1.3-4.6); Glomerular Filtration Rate 74.9 mL/min (90-130); Glucose 142 mg/dL (65-115); Total Bilirubin 0.4 mg/dL (0.15-1.2); Total Protein 8.5 g/dL (6.6-8.7)
--- NOTE | 2022-12-06 04:38 | PC.NURSE ---
Assisted to chair at bedside. Linens changed, bath given, gown changed. After bath became sleepy while sitting in recliner. Placed back on bipap 40%. Resting comfortably, v/s stable.
[2022-12-06 04:42] LABS: Anion Gap 17.7 (5-19); Chloride 85 mmol/L (98-107); Osmolality Calculated 297 mOsm/kg (285-295); Sodium 139 mmol/L (136-145)
[2022-12-06 05:00] LABS: Potassium 2.7 mmol/L (3.5-5.1)
[2022-12-06] MEDS: lidocaine 1% 5 ML in potassium chloride premix 100 ML 26.25 ML IV (05:15)
[2022-12-06] MEDS: budesonide 0.5 mg/2 mL Neb INHALATION ×2 (07:46→19:58)
[2022-12-06] MEDS: aspirin 81 mg EC Tablet PO (08:26)
[2022-12-06] MEDS: potassium chloride ER 10 mEq Tablet PO (08:26)
[2022-12-06] MEDS: sennosides-docusate Tablet 1 TAB PO ×2 (08:26→17:31)
[2022-12-06] MEDS: levothyroxine 125 mcg Tablet PO (08:26)
[2022-12-06] MEDS: allopurinol 100 mg Tablet PO (11:27)
--- NOTE | 2022-12-06 12:47 | PM.PN ---
Subjective Subjective: Patient was seen and examined this morning, currently saturating well on 6 L oxygen through nasal cannula, Afebrile overnight. Medications: Medication Review Details: Generic Name Dose Route Start Last Admin Trade Name Nelia PRN Reason Stop Dose Admin Albuterol/Ipratrop ium 3 ml 12/05/22 01:00 12/06/22 11:01 Ipratropium-Albu terol 3 Ml Neb INHALATION 3 ml Q4H.RESPIRATORY S CH Administration Allopurinol 100 mg 12/05/22 10:00 12/06/22 11:27 Allopurinol 100 Mg Tablet PO 100 mg DAILY@1000 JANET Administration Aspirin 81 mg 12/05/22 09:00 12/06/22 08:26 Aspirin 81 Mg Ec Tablet PO 81 mg DAILY JANET Administration Budesonide 0.5 mg 12/05/22 08:26 12/06/22 07:46 Budesonide 0.5 M g/2 Ml Neb INHALATION 0.5 mg BID.RESPIRATORY S CH Administration Piperacillin Sod/T azobactam 50 mls @ 12.5 mls /hr 12/05/22 03:00 12/06/22 11:27 Sod 3.375 gm/ So dium Chloride IV 12.5 mls/hr Q8H JANET Administration Protocol Vancomycin/PEG/NAD A/Lysine/Water 1,500 mg in 300 m ls @ 200 mls/hr 12/05/22 02:00 12/06/22 03:06 Vancocin IV Infused Q12H JANET Infusion Levothyroxine Sodi um 125 mcg 12/05/22 09:00 12/06/22 08:26 Levothyroxine 12 5 Mcg Tablet PO 125 mcg DAILY JANET Administration Potassium Chloride 10 meq 12/05/22 09:00 12/06/22 08:26 Potassium Chlori de Er 10 Meq Table t PO 10 meq DAILY JANET Administration Senna/Docusate Sod ium 1 tab 12/04/22 22:28 12/06/22 08:26 Sennosides-Docus ate Tablet PO 1 tab BID JANET Administration Vitals/I&O/Wt Last Vital Signs Temp 98.9 F 12/06/22 08:00 Pulse 83 12/06/22 12:00 Resp 30 H 12/06/22 12:00 BP 123/82 12/06/22 12:00 Pulse Ox 92 12/06/22 12:00 O2 Del Method 12/06/22 12:00 O2 Flow Rate 6 12/06/22 12:00 FiO2 40 12/06/22 11:02 12/05/22 12/06/22 12/06/22 22:59 06:59 14:59 Intake Total 640 / 833.939 800 / 1633.939 395 / 395 Output Total 3600 / 3600 1150 / 4750 Balance -2960 / -2766.061 -350 / -3116.061 395 / 395 Weight last 48 hrs Weight 91.444 kg Weight 92.533 kg Weight 93.44 kg Physical Exam HENMT: COMMON NORMALS: normocephalic and atraumatic HEAD & SCALP: normocephalic and atraumatic Eye: COMMON NORMALS: no scleral icterus GENERAL EYE: appearance normal, both eyes and all related structures Resp: COMMON NORMALS: clear to auscultation bilaterally AUSCULTATION: clear to auscultation bilaterally OTHER: Diminished air entry bilaterally, minimal expiratory wheezing. Cardio: COMMON NORMALS: regular rate, regular rhythm, S1 normal heart sound present, S2 normal heart sound present, No gallops present (Cardio), No murmurs present (Cardio), No rub (Cardio) and Peripheral pulses 2+ throughout RATE: regular rate RHYTHM: regular rhythm HEART SOUNDS: S1 normal heart sound present and S2 normal heart sound present PERIPHERAL PULSES: Peripheral pulses 2+ throughout GI: COMMON NORMALS: Normal to inspection, nondistended, normoactive bowel sounds present, Soft to palpation, non-tender, No hepatosplenomegaly present and no masses AUSCULTATION: Yes normoactive bowel sounds PALPATION: Yes Soft to palpation and Yes No hepatosplenomegaly present RECTAL EXAM: Yes deferred Extremity: COMMON NORMALS: no clubbing, cyanosis or edema and no pedal edema Urinary Catheter Management: Gruber: Cath Placed During This Visit: yes Reason for Continuing Indwelling Catheter: Accurate Measurement of Urinary Output in Critically Ill Patients Urinary Catheter Date of Insertion: 12/05/22 Urinary Catheter Time of Insertion: 01:30 Data 12/06/22 03:22 12/06/22 03:22 Micro: Microbiology 12/05/22 02:58 Blood Culture - Preliminary Blood NEGATIVE TO DATE 12/05/22 02:56 Blood Culture - Preliminary Blood NEGATIVE TO DATE 12/05/22 11:00 Legionella Urinary Antigen - Final Urine,Clean Catch Bacterial Antigens - Final 12/05/22 01:20 MRSA Culture - Final Nose A&P Assessment and plan (1) Bronchitis due to parainfluenza virus: Supportive care Tylenol for fever Supplemental oxygen (2) Hypoxia: Provide supplemental oxygen for SPO2 goal of 90 to 96% (3) Down syndrome, unspecified: He will need assistance with most of the ADLs other than feeding self (4) Congestive heart failure: Compensated on exam (5) Sleep apnea: Noncompliant with CPAP (6) Respiratory failure with hypoxia and hypercapnia: Respiratory failure with hypoxia and hypercapnia: Secondary to pneumonia/heart failure with preserved ejection fraction.. CTA chest: No pulmonary embolism,Scattered groundglass opacifications, greatest in the RIGHT lung consistent with pneumonitis.Developing pneumonia RIGHT upper lobe suspected due to the increasing consolidation. Lower extremity Dopplers were negative for DVT. Blood culture: NTD Sputum gram stain and culture MRSA nare positive Urine Legionella antigen negative bacterial antigen panel negative Currently on vancomycin Zosyn Lasix 40 IV daily Continue BiPAP Supplemental oxygen as needed to maintain SPO2 greater than 95 DuoNebs Solu-Medrol 40 IV every 12 hours Budesonide inhaler Plan DVT prophylaxis: Lovenox CODE STATUS: Full code Attestations Medical Necessity Statement*: Patient is to be in hospital management of respiratory failure. Coding Level of Care Code Acute Code for [facility] Diagnoses Bronchitis due to parainfluenza virus J20.4 Hypoxia R09.02 Down syndrome, unspecified Q90.9 Congestive heart failure I50.9 Sleep apnea G47.30 Respiratory failure with hypoxia and hypercapnia J96.91; J96.92
[2022-12-06 13:27] LABS: Vancomycin Trough 17.6 ug/mL (10-15)
[2022-12-06] MEDS: TRAMadol 50 mg Tablet PO (19:06)
[2022-12-07] VITALS (28 sets, daily range): BP systolic 107–164; BP diastolic 59–126; PULSE 65–106; RESP 16–38; TEMP 36.8–37.1; O2SAT 85–97
[2022-12-07] MEDS: vancomycin 1,500 MG/300 ML PIGGYBACK 200 MG IV ×2 (01:51→14:25)
[2022-12-07] MEDS: piperacillin-tazobactam 3.375 GM in sodium chloride 0.9% (plus) 50 ML IV ×3 (02:03→18:04)
[2022-12-07] MEDS: ipratropium-albuterol 3 mL Neb INHALATION ×4 (03:27→16:04)
[2022-12-07 05:01] LABS: Basophils % 0.2 %; Hematocrit 39.4 % (42.0-52.0); Hemoglobin 11.1 g/dL (11.7-16.6); Lymphocytes # 1.1 10^3/uL (0.8-4.8); Lymphocytes % 6.4 %; Mean Corpuscular HGB Conc 28.2 g/dL (30.0-36.0); Mean Corpuscular Hemoglobin 20.7 pg (28.0-34.0); Mean Corpuscular Volume 73.6 fl (80-94); Mean Platelet Volume 9.5 fL (7.4-10.4); Monocytes % 6.1 %; Neutrophils # 14.84 10^3/uL (1.8-7.7); Neutrophils % 86.4 %; Nucleated Red Blood Cells % 0 %; Platelet Count 455 10^3/cmm (130-400); Red Blood Count 5.35 10^6/uL (4.1-5.3); Red Cell Distribution Width 21.6 % (12.1-15.1); White Blood Count 17.2 10^3/uL (4.0-10.0)
[2022-12-07 05:23] LABS: Alanine Aminotransferase 14 U/L (0-41); Albumin Level 3.6 g/dL (3.5-5.2); Alkaline Phosphatase 94 U/L (40-130); Blood Urea Nitrogen 24 mg/dL (6-20); Calcium 8.6 mg/dL (8.5-10.5); Carbon Dioxide 36 mmol/L (22-29); Chloride 86 mmol/L (98-107); Globulin 3.9 g/dL (1.3-4.6); Glomerular Filtration Rate 108.2 mL/min (90-130); Glucose 140 mg/dL (65-115); Osmolality Calculated 282 mOsm/kg (285-295); Sodium 133 mmol/L (136-145); Total Bilirubin 0.3 mg/dL (0.15-1.2); Total Protein 7.5 g/dL (6.6-8.7)
[2022-12-07 05:24] LABS: Anion Gap 14.2 (5-19); Potassium 3.2 mmol/L (3.5-5.1)
[2022-12-07 05:25] LABS: Aspartate Amino Transferase 25 U/L (0-40)
[2022-12-07] MEDS: FUROsemide 10 mg/mL SDV 4mL 40 MG IVP (07:26)
[2022-12-07] MEDS: budesonide 0.5 mg/2 mL Neb INHALATION (08:33)
[2022-12-07] MEDS: potassium chloride ER 20 mEq Tablet 40 MEQ PO (09:08)
[2022-12-07] MEDS: mupirocin oint 22 gm 1 APPLIC NOSTRIL-B ×2 (09:08→18:05)
[2022-12-07] MEDS: levothyroxine 125 mcg Tablet PO (09:08)
[2022-12-07] MEDS: aspirin 81 mg EC Tablet PO (09:08)
[2022-12-07] MEDS: sennosides-docusate Tablet 1 TAB PO ×2 (09:08→18:03)
[2022-12-07] MEDS: allopurinol 100 mg Tablet PO (10:39)
--- NOTE | 2022-12-07 10:48 | PC.CHAP ---
Pastoral Care Encounter/Spiritual Assessment Type of Contact [] Declined payroll administrative assistant visit [] Patient/Family/Request visit [] Outpatient visit [] Follow-up visit [] Physician referral [] Code/Alert [x] Routine visit [] Staff referral [] Actively dying [] Patient sleeping [] Family support [] [] Out of room [] Palliative care [] [] Receiving care in room [] Pre-surgical visit [] Trauma [] Long length of stay [x] ICU visit [] Other: Relational/Emotional Strength [] Patient feels connected with others/family/visitors/staff [] Distress [] Loneliness/isolation [] Abandonment Spirituality of Patient [] Person of [place] [] Attends Jewish of their [place] [] Believes in Prayer [] Reads Bible or Pentecostalism materials [] There are Spiritual issues to be addressed Italian Lecturer Interventions [x] Prayer [] Active listening [] Non-anxious presence [] Spiritual/emotional support [] Crisis/trauma care [] Spiritual counseling [] Bereavement support [] Provided bereavement packet [] Provided Bible/devotional materials [] Provided toy/stuffed animal, coloring book to patient or family member [] Provided Communion [] Anointing/[place] [] Salvation [] Completed spiritual assessment [] Other: Impact on Illness or Injury [] Angry [] Fearful [] Anxious [] Often cries [] Exhaustion [] Unable to work [] Unable to attend hoahaoism [] Unable to walk/stand [] Unable to read [] Unable to drive [] Unable to eat/drink [] Unable to sleep [] Unable to be with family [] Patient intubated [] Other: Summary Time spent with patient
--- NOTE | 2022-12-07 14:34 | PC.NURSE ---
Attempted to call report to second floor. Second floor will call back when room is ready.
--- NOTE | 2022-12-07 14:48 | PC.SOCIAL ---
IMM Update pg 2 of IMM updated w/ family @ Bedside. Copy provided and Copy dated, initialed and placed in chart.
--- NOTE | 2022-12-07 15:27 | PC.NURSE ---
Report called to second floor. Family, Denise notified of transfer and room number.
--- NOTE | 2022-12-07 15:46 | PC.NURSE ---
Patient transferred to second floor room 264. Patient appeared to be resting comfortably in bed with nurse, Michelle, at bedside as well as RT with Bipap. Patient chart left with staff at front window cashier.
--- NOTE | 2022-12-07 17:03 | PM.PN ---
Subjective Subjective: Patient was seen and examined this morning, overall he is doing better, supplemental oxygen requirement is slowly coming down, he will have to be compliant with his CPAP. So far has remained afebrile. Leukocytosis: Is likely due to steroid use. Medications: Medication Review Details: Generic Name Dose Route Start Last Admin Trade Name Nelia PRN Reason Stop Dose Admin Albuterol/Ipratrop ium 3 ml 12/05/22 01:00 12/07/22 16:04 Ipratropium-Albu terol 3 Ml Neb INHALATION 3 ml Q4H.RESPIRATORY S CH Administration Allopurinol 100 mg 12/05/22 10:00 12/07/22 10:39 Allopurinol 100 Mg Tablet PO 100 mg DAILY@1000 JANET Administration Aspirin 81 mg 12/05/22 09:00 12/07/22 09:08 Aspirin 81 Mg Ec Tablet PO 81 mg DAILY JANET Administration Budesonide 0.5 mg 12/05/22 08:26 12/07/22 08:33 Budesonide 0.5 M g/2 Ml Neb INHALATION 0.5 mg BID.RESPIRATORY S CH Administration Furosemide 40 mg 12/07/22 08:00 12/07/22 07:26 Furosemide 10 Mg /Ml Sdv 4ml IVP 40 mg Q24H JANET Administration Piperacillin Sod/T azobactam 50 mls @ 12.5 mls /hr 12/05/22 03:00 12/07/22 14:47 Sod 3.375 gm/ So dium Chloride IV Infused Q8H JANET Infusion Protocol Vancomycin/PEG/NAD A/Lysine/Water 1,500 mg in 300 m ls @ 200 mls/hr 12/05/22 02:00 12/07/22 14:25 Vancocin IV 200 mls/hr Q12H JANET Administration Levothyroxine Sodi um 125 mcg 12/05/22 09:00 12/07/22 09:08 Levothyroxine 12 5 Mcg Tablet PO 125 mcg DAILY JANET Administration Mupirocin 1 applic 12/07/22 09:00 12/07/22 09:08 Mupirocin Oint 2 2 Gm NOSTRIL-B 1 applic BID JANET Administration Potassium Chloride 40 meq 12/07/22 09:00 12/07/22 09:08 Potassium Chlori de Er 20 Meq Table t PO 40 meq DAILY JANET Administration Senna/Docusate Sod ium 1 tab 12/04/22 22:28 12/07/22 09:08 Sennosides-Docus ate Tablet PO 1 tab BID JANET Administration Tramadol HCl 50 mg 12/04/22 22:28 12/06/22 19:06 Tramadol 50 Mg T ablet PO 50 mg Q6H PRN Administration Pain Vitals/I&O/Wt Last Vital Signs Temp 98.5 F 12/07/22 16:00 Pulse 84 12/07/22 16:00 Resp 20 H 12/07/22 15:50 BP 126/78 12/07/22 16:00 Pulse Ox 93 12/07/22 16:00 O2 Del Method 12/07/22 15:50 O2 Flow Rate 5 12/07/22 15:50 FiO2 40 12/07/22 13:38 12/07/22 12/07/22 12/07/22 06:59 14:59 22:59 Intake Total 400 / 2535 530 / 530 Output Total 500 / 3400 1999 / 1999 Balance -100 / -865 -1470 / -1470 Weight last 48 hrs Weight 95.056 kg Physical Exam HENMT: COMMON NORMALS: normocephalic and atraumatic HEAD & SCALP: normocephalic and atraumatic Eye: COMMON NORMALS: no scleral icterus GENERAL EYE: appearance normal, both eyes and all related structures Resp: COMMON NORMALS: clear to auscultation bilaterally AUSCULTATION: clear to auscultation bilaterally OTHER: Diminished air entry bilaterally, minimal expiratory wheezing. Cardio: COMMON NORMALS: regular rate, regular rhythm, S1 normal heart sound present, S2 normal heart sound present, No gallops present (Cardio), No murmurs present (Cardio), No rub (Cardio) and Peripheral pulses 2+ throughout RATE: regular rate RHYTHM: regular rhythm HEART SOUNDS: S1 normal heart sound present and S2 normal heart sound present PERIPHERAL PULSES: Peripheral pulses 2+ throughout GI: COMMON NORMALS: Normal to inspection, nondistended, normoactive bowel sounds present, Soft to palpation, non-tender, No hepatosplenomegaly present and no masses AUSCULTATION: Yes normoactive bowel sounds PALPATION: Yes Soft to palpation and Yes No hepatosplenomegaly present RECTAL EXAM: Yes deferred Extremity: COMMON NORMALS: no clubbing, cyanosis or edema and no pedal edema Urinary Catheter Management: Gruber: Cath Placed During This Visit: yes Reason for Continuing Indwelling Catheter: Accurate Measurement of Urinary Output in Critically Ill Patients Urinary Catheter Date of Insertion: 12/05/22 Urinary Catheter Time of Insertion: 01:30 Data 12/07/22 04:47 12/07/22 04:47 Micro: Microbiology 12/06/22 07:55 Gram Stain - Final Sputum - Expectorated Sputum Sputum Culture - Preliminary 12/05/22 11:34 MRSA Culture - Final Nose A&P Assessment and plan (1) Bronchitis due to parainfluenza virus: Supportive care Tylenol for fever Supplemental oxygen (2) Hypoxia: Provide supplemental oxygen for SPO2 goal of 90 to 96% (3) Down syndrome, unspecified: He will need assistance with most of the ADLs other than feeding self (4) Congestive heart failure: Compensated on exam (5) Sleep apnea: Noncompliant with CPAP (6) Respiratory failure with hypoxia and hypercapnia: Respiratory failure with hypoxia and hypercapnia: Secondary to pneumonia/heart failure with preserved ejection fraction.. CTA chest: No pulmonary embolism,Scattered groundglass opacifications, greatest in the RIGHT lung consistent with pneumonitis.Developing pneumonia RIGHT upper lobe suspected due to the increasing consolidation. Lower extremity Dopplers were negative for DVT. Blood culture: NTD Sputum gram stain and culture: Rare gram-positive cocci in pairs, rare gram-negative rods MRSA nare positive Urine Legionella antigen negative bacterial antigen panel negative Currently on vancomycin Zosyn Lasix 40 IV daily Continue BiPAP Supplemental oxygen as needed to maintain SPO2 greater than 95 DuoNebs Solu-Medrol 40 IV every 12 hours Budesonide inhaler Plan DVT prophylaxis: Lovenox CODE STATUS: Full code Attestations Medical Necessity Statement*: Needs to be in hospital for management of respiratory failure. Coding Level of Care Code Acute Code for [facility] Diagnoses Bronchitis due to parainfluenza virus J20.4 Hypoxia R09.02 Down syndrome, unspecified Q90.9 Congestive heart failure I50.9 Sleep apnea G47.30 Respiratory failure with hypoxia and hypercapnia J96.91; J96.92
[2022-12-08] VITALS (19 sets, daily range): BP systolic 119–146; BP diastolic 69–85; PULSE 66–110; RESP 16–24; TEMP 36.4–37.1; O2SAT 90–97
[2022-12-08] MEDS: ipratropium-albuterol 3 mL Neb INHALATION ×7 (00:45→23:51)
[2022-12-08] MEDS: vancomycin 1,500 MG/300 ML PIGGYBACK 200 MG IV ×2 (01:47→15:37)
[2022-12-08] MEDS: piperacillin-tazobactam 3.375 GM in sodium chloride 0.9% (plus) 50 ML IV ×3 (02:37→20:34)
[2022-12-08 05:10] LABS: Basophils % 0.1 %; Hematocrit 40.3 % (42.0-52.0); Hemoglobin 11.2 g/dL (11.7-16.6); Lymphocytes # 2.8 10^3/uL (0.8-4.8); Mean Corpuscular HGB Conc 27.8 g/dL (30.0-36.0); Mean Corpuscular Hemoglobin 20.4 pg (28.0-34.0); Mean Corpuscular Volume 73.5 fl (80-94); Mean Platelet Volume 9.3 fL (7.4-10.4); Monocytes # 1.5 10^3/uL (0.2-0.9); Monocytes % 11.1 %; Neutrophils # 9.31 10^3/uL (1.8-7.7); Neutrophils % 67.1 %; Nucleated Red Blood Cells % 0 %; Platelet Count 417 10^3/cmm (130-400); Red Blood Count 5.48 10^6/uL (4.1-5.3); Red Cell Distribution Width 21.3 % (12.1-15.1); White Blood Count 13.9 10^3/uL (4.0-10.0)
[2022-12-08 05:38] LABS: Alanine Aminotransferase 12 U/L (0-41); Albumin Level 3.7 g/dL (3.5-5.2); Alkaline Phosphatase 77 U/L (40-130); Anion Gap 12.1 (5-19); Aspartate Amino Transferase 14 U/L (0-40); Blood Urea Nitrogen 25 mg/dL (6-20); Calcium 8.7 mg/dL (8.5-10.5); Carbon Dioxide 39 mmol/L (22-29); Chloride 89 mmol/L (98-107); Globulin 3.5 g/dL (1.3-4.6); Glomerular Filtration Rate 108.2 mL/min (90-130); Glucose 129 mg/dL (65-115); Osmolality Calculated 290 mOsm/kg (285-295); Potassium 3.1 mmol/L (3.5-5.1); Sodium 137 mmol/L (136-145); Total Bilirubin 0.2 mg/dL (0.15-1.2); Total Protein 7.2 g/dL (6.6-8.7)
[2022-12-08 05:47] LABS: Slide Review Slide Review Perform
[2022-12-08] MEDS: budesonide 0.5 mg/2 mL Neb INHALATION ×2 (08:22→21:01)
[2022-12-08] MEDS: FUROsemide 10 mg/mL SDV 4mL 40 MG IVP (08:31)
[2022-12-08] MEDS: levothyroxine 125 mcg Tablet PO (08:32)
[2022-12-08] MEDS: allopurinol 100 mg Tablet PO (08:32)
[2022-12-08] MEDS: mupirocin oint 22 gm 1 APPLIC NOSTRIL-B ×2 (08:32→17:37)
[2022-12-08] MEDS: aspirin 81 mg EC Tablet PO (08:32)
[2022-12-08] MEDS: sennosides-docusate Tablet 1 TAB PO ×2 (08:32→17:36)
[2022-12-08] MEDS: potassium chloride ER 20 mEq Tablet 40 MEQ PO (08:33)
--- NOTE | 2022-12-08 15:21 | P.PN_ITS ---
Subjective Subjective: Patient was seen and examined this morning, has significant desaturation whenever he is off oxygen. Maintaining decent saturation with nasal cannula though supplemental oxygen requirement is slowly going down. Medications: Medication Review Details: Generic Name Dose Route Start Last Admin Trade Name Nelia PRN Reason Stop Dose Admin Albuterol/Ipratrop ium 3 ml 12/05/22 01:00 12/08/22 15:18 Ipratropium-Albu terol 3 Ml Neb INHALATION 3 ml Q4H.RESPIRATORY S CH Administration Allopurinol 100 mg 12/05/22 10:00 12/08/22 08:32 Allopurinol 100 Mg Tablet PO 100 mg DAILY@1000 JANET Administration Aspirin 81 mg 12/05/22 09:00 12/08/22 08:32 Aspirin 81 Mg Ec Tablet PO 81 mg DAILY JANET Administration Budesonide 0.5 mg 12/05/22 08:26 12/08/22 08:22 Budesonide 0.5 M g/2 Ml Neb INHALATION 0.5 mg BID.RESPIRATORY S CH Administration Furosemide 40 mg 12/07/22 08:00 12/08/22 08:31 Furosemide 10 Mg /Ml Sdv 4ml IVP 40 mg Q24H JANET Administration Piperacillin Sod/T azobactam 50 mls @ 12.5 mls /hr 12/05/22 03:00 12/08/22 13:19 Sod 3.375 gm/ So dium Chloride IV 12.5 mls/hr Q8H JANET Administration Protocol Vancomycin/PEG/NAD A/Lysine/Water 1,500 mg in 300 m ls @ 200 mls/hr 12/05/22 02:00 12/08/22 04:06 Vancocin IV Infused Q12H JANET Infusion Levothyroxine Sodi um 125 mcg 12/05/22 09:00 12/08/22 08:32 Levothyroxine 12 5 Mcg Tablet PO 125 mcg DAILY JANET Administration Methylprednisolone Sodium Succinate 40 mg 12/08/22 09:00 12/08/22 08:31 Methylprednisolo ne Sod Succ 40 Mg/ Ml Inj IVP 40 mg DAILY JANET Administration Mupirocin 1 applic 12/07/22 09:00 12/08/22 08:32 Mupirocin Oint 2 2 Gm NOSTRIL-B 1 applic BID JANET Administration Potassium Chloride 40 meq 12/07/22 09:00 12/08/22 08:33 Potassium Chlori de Er 20 Meq Table t PO 40 meq DAILY JANET Administration Senna/Docusate Sod ium 1 tab 12/04/22 22:28 12/08/22 08:32 Sennosides-Docus ate Tablet PO 1 tab BID JANET Administration Tramadol HCl 50 mg 12/04/22 22:28 12/06/22 19:06 Tramadol 50 Mg T ablet PO 50 mg Q6H PRN Administration Pain Vitals/I&O/Wt Last Vital Signs Temp 97.8 F 12/08/22 12:00 Pulse 70 12/08/22 12:00 Resp 18 12/08/22 12:00 BP 120/73 12/08/22 12:00 Pulse Ox 90 12/08/22 12:00 O2 Del Method 12/08/22 12:00 O2 Flow Rate 4 12/08/22 11:01 FiO2 40 12/08/22 03:39 12/08/22 12/08/22 12/08/22 06:59 14:59 22:59 Intake Total 590 / 1470 Output Total 500 / 3300 Balance 90 / -1830 Weight last 48 hrs Weight 90.974 kg Weight 95.056 kg Physical Exam HENMT: COMMON NORMALS: normocephalic and atraumatic HEAD & SCALP: normocephalic and atraumatic Eye: COMMON NORMALS: no scleral icterus GENERAL EYE: appearance normal, both eyes and all related structures Resp: COMMON NORMALS: clear to auscultation bilaterally AUSCULTATION: clear to auscultation bilaterally OTHER: Diminished air entry bilaterally, bilateral wheezing and rhonchi. Cardio: COMMON NORMALS: regular rate, regular rhythm, S1 normal heart sound present, S2 normal heart sound present, No gallops present (Cardio), No murmurs present (Cardio), No rub (Cardio) and Peripheral pulses 2+ throughout RATE: regular rate RHYTHM: regular rhythm HEART SOUNDS: S1 normal heart sound present and S2 normal heart sound present PERIPHERAL PULSES: Peripheral pulses 2+ throughout GI: COMMON NORMALS: Normal to inspection, nondistended, normoactive bowel sounds present, Soft to palpation, non-tender, No hepatosplenomegaly present and no masses AUSCULTATION: Yes normoactive bowel sounds PALPATION: Yes Soft to palpation and Yes No hepatosplenomegaly present RECTAL EXAM: Yes deferred Extremity: COMMON NORMALS: no clubbing, cyanosis or edema and no pedal edema Urinary Catheter Management: Gruber: Cath Placed During This Visit: yes Reason for Continuing Indwelling Catheter: Acute Urinary Retention or Obstruction Urinary Catheter Date of Insertion: 12/05/22 Urinary Catheter Time of Insertion: 01:30 Data 12/08/22 05:00 12/08/22 05:00 Micro: Microbiology 12/06/22 07:55 Gram Stain - Final Sputum - Expectorated Sputum Sputum Culture - Preliminary A&P Assessment and plan (1) Bronchitis due to parainfluenza virus: Supportive care Tylenol for fever Supplemental oxygen (2) Hypoxia: Provide supplemental oxygen for SPO2 goal of 90 to 96% (3) Down syndrome, unspecified: He will need assistance with most of the ADLs other than feeding self (4) Congestive heart failure: Compensated on exam (5) Sleep apnea: Noncompliant with CPAP (6) Respiratory failure with hypoxia and hypercapnia: Respiratory failure with hypoxia and hypercapnia: Secondary to pneumonia/heart failure with preserved ejection fraction.. CTA chest: No pulmonary embolism,Scattered groundglass opacifications, greatest in the RIGHT lung consistent with pneumonitis.Developing pneumonia RIGHT upper lobe suspected due to the increasing consolidation. Lower extremity Dopplers were negative for DVT. Blood culture: NTD Sputum gram stain and culture: Rare gram-positive cocci in pairs, rare gram- negative rods MRSA nare positive Urine Legionella antigen negative bacterial antigen panel negative Currently on vancomycin Zosyn Lasix 40 IV daily Continue BiPAP Supplemental oxygen as needed to maintain SPO2 greater than 95 DuoNebs Solu-Medrol 40 IV every 12 hours Budesonide inhaler Plan DVT prophylaxis: Lovenox CODE STATUS: Full code Attestations Medical Necessity Statement*: Is in hospital for management of respiratory failure Coding Level of Care Code Acute Code for [facility] Fwd Diagnoses Bronchitis due to parainfluenza virus J20.4 Hypoxia R09.02 Down syndrome, unspecified Q90.9 Congestive heart failure I50.9 Sleep apnea G47.30 Respiratory failure with hypoxia and hypercapnia J96.91; J96.92
--- NOTE | 2022-12-08 18:49 | PC.NURSE ---
Bedside report given to Merissa CANDELARIA at this time.
[2022-12-09] VITALS (13 sets, daily range): BP systolic 111–124; BP diastolic 69–81; PULSE 63–107; RESP 16–31; TEMP 36.4–37.2; O2SAT 87–95; BMI 40.5
[2022-12-09] MEDS: vancomycin 1,500 MG/300 ML PIGGYBACK 200 MG IV ×2 (02:23→15:33)
[2022-12-09] MEDS: ipratropium-albuterol 3 mL Neb INHALATION ×4 (04:27→15:31)
[2022-12-09] MEDS: piperacillin-tazobactam 3.375 GM in sodium chloride 0.9% (plus) 50 ML IV ×2 (05:34→17:59)
[2022-12-09] MEDS: budesonide 0.5 mg/2 mL Neb INHALATION (07:38)
[2022-12-09] MEDS: FUROsemide 10 mg/mL SDV 4mL 40 MG IVP (09:35)
[2022-12-09] MEDS: levothyroxine 125 mcg Tablet PO (09:35)
[2022-12-09] MEDS: aspirin 81 mg EC Tablet PO (09:35)
[2022-12-09] MEDS: mupirocin oint 22 gm 1 APPLIC NOSTRIL-B ×2 (09:36→17:55)
[2022-12-09] MEDS: allopurinol 100 mg Tablet PO (09:36)
[2022-12-09] MEDS: sennosides-docusate Tablet 1 TAB PO ×2 (09:36→18:01)
[2022-12-09] MEDS: potassium chloride ER 20 mEq Tablet 40 MEQ PO (09:36)
--- NOTE | 2022-12-09 10:52 | PC.SOCIAL ---
IMM update IMM updated with patient's sister Denise. Verbalized an understanding. Initialled, dated, timed, and placed in chart.
--- NOTE | 2022-12-09 11:38 | P.DS_ITS ---
Discharge Providers Date of Admission: 12/04/22 17:37 Date of Discharge: December 09, 2022 Attending Provider at Admission: Mateusz Haynes MD Attending Provider at Discharge: Apolinar Orellana MD Primary Care Provider: Mateusz Lynn MD Diagnoses at Discharge Discharge Diagnosis (1) Bronchitis due to parainfluenza virus: Status: Acute (2) Hypoxia: Status: Acute (3) Down syndrome, unspecified: Status: Acute (4) Congestive heart failure: Status: Acute (5) Sleep apnea: Status: Acute (6) Respiratory failure with hypoxia and hypercapnia: Status: Acute Reason for Visit Reason for Visit: SOB Hospital Course Hospital Course John is a 37 year old male with a past medical history significant for Down syndrome, sleep apnea organism, lumbar radiculopathy, cardiac heart murmur who presents to the emergency department with shortness of breath, he was initially admitted for the management of bronchitis secondary to parainfluenza virus, hospital course was complicated by development of respiratory failure with hypoxia and hypercapnia secondary to pneumonia as well as decompensated heart failure, he was kept on IV diuresis, broad-spectrum antibiotics, DuoNebs, supplemental oxygen as needed, BiPAP, steroids ,CTA chest: Showed no pulmonary embolism,Scattered groundglass opacifications, greatest in the RIGHT lung consistent with pneumonitis.Developing pneumonia RIGHT upper lobe suspected due to the increasing consolidation,Lower extremity Dopplers were negative for DVT. Blood culture: NTD,Sputum gram stain and culture: Rare gram-positive cocci in pairs, rare gram-negative rods,MRSA nare positive Urine Legionella antigen negative bacterial antigen panel negative, patient. Patient responded well to above medical management at the time of discharge he qualified for 3 L home oxygen, with exertion, he was discharged on p.o. Augmen tin prednisone, albuterol inhaler as needed as well as budesonide inhaler.Overall patient responded well to above medical management, he was discharged in stable condition to custodial, he has been advised to follow pulmonary medicine as outpatient. Physical Exam HENMT: COMMON NORMALS: normocephalic and atraumatic HEAD & SCALP: normocephalic and atraumatic Eye: COMMON NORMALS: no scleral icterus GENERAL EYE: appearance normal, both eyes and all related structures Resp: COMMON NORMALS: normal respiratory effort and clear to auscultation bilaterally AUSCULTATION: clear to auscultation bilaterally Cardio: COMMON NORMALS: regular rate, regular rhythm, S1 normal heart sound present, S2 normal heart sound present, No gallops present (Cardio), No murmurs present (Cardio), No rub (Cardio) and Peripheral pulses 2+ throughout RATE: regular rate RHYTHM: regular rhythm HEART SOUNDS: S1 normal heart sound present and S2 normal heart sound present PERIPHERAL PULSES: Peripheral pulses 2+ throughout GI: COMMON NORMALS: Normal to inspection, nondistended, normoactive bowel sounds present, Soft to palpation, non-tender, No hepatosplenomegaly present and no masses AUSCULTATION: Yes normoactive bowel sounds PALPATION: Yes Soft to palpation and Yes No hepatosplenomegaly present RECTAL EXAM: Yes deferred Extremity: COMMON NORMALS: no clubbing, cyanosis or edema and no pedal edema Urinary Catheter Management: Gruber: Cath Placed During This Visit: yes, but has since been removed by the nurse Reason for Continuing Indwelling Catheter: Decision to DC Catheter Urinary Catheter Date of Insertion: 12/05/22 Urinary Catheter Time of Insertion: 01:30 Date Urinary Catheter Removed: 12/08/22 Time Urinary Catheter Discontinued: 18:02 Discharge Data Studies Completed and Pending Completed Studies During Hospitalization Category Date Time Status CTA chest [CT angio chest PE protcl [id number]] Routine Cat Scan 12/05/22 10:13 Completed XR chest 1V portable [id number] Routine Exams 12/05/22 00:48 Completed XR chest 1V portable [id number] Stat Exams 12/04/22 14:04 Completed XR chest 1V portable [id number] Stat Exams 12/05/22 03:24 [place] [id number] Routine Ultrasound 12/05/22 09:11 Completed Pending at discharge Category Date Time Status Blood Culture Stat Lab 12/05/22 02:58 Results SARS Covid-2 Antigen Routine Lab 12/09/22 11:04 Received Radiology Impressions Chest X-Ray 12/05/22 03:24 IMPRESSION: 1. ET tube is not seen. Correlate clinically. 2. Similar-appearing cardiomegaly and pulmonary vascular congestion, cannot exclude superimposed infectious and/or inflammatory process. Correlate and follow-up as clinically indicated. Chest CTA 12/05/22 10:13 IMPRESSION: 1. No pulmonary embolism. Limited opacification RIGHT upper lobe pulmonary arteries. 2. Scattered groundglass opacifications, greatest in the RIGHT lung consistent with pneumonitis. Developing pneumonia RIGHT upper lobe suspected due to the increasing consolidation. 3. Mild cardiomegaly. Laboratory Results WBC 13.9 10^3/uL (4.0-10.0) H 12/08/22 05:00 Corrected WBC Cancelled 12/07/22 02:53 RBC 5.48 10^6/uL (4.1-5.3) H 12/08/22 05:00 Hgb 11.2 g/dL (11.7-16.6) L 12/08/22 05:00 Hct 40.3 % (42.0-52.0) L 12/08/22 05:00 MCV 73.5 fl (80-94) L 12/08/22 05:00 MCH 20.4 pg (28.0-34.0) L 12/08/22 05:00 MCHC 27.8 g/dL (30.0-36.0) L 12/08/22 05:00 RDW 21.3 % (12.1-15.1) H 12/08/22 05:00 Plt Count 417 10^3/cmm (130-400) H 12/08/22 05:00 MPV 9.3 fL (7.4-10.4) 12/08/22 05:00 Gran % Cancelled 12/07/22 02:53 Neut % (Auto) 67.1 % 12/08/22 05:00 Lymph % (Auto) 20.0 % 12/08/22 05:00 [place] % (Auto) 11.1 % 12/08/22 05:00 Eos % (Auto) 0.0 % 12/08/22 05:00 Baso % (Auto) 0.1 % 12/08/22 05:00 Neut # (Auto) 9.31 10^3/uL (1.8-7.7) H 12/08/22 05:00 Lymph # (Auto) 2.8 10^3/uL (0.8-4.8) 12/08/22 05:00 [place] # (Auto) 1.5 10^3/uL (0.2-0.9) H 12/08/22 05:00 Eos # (Auto) 0.0 10^3/uL (0.0-0.8) 12/08/22 05:00 Baso # (Auto) 0.0 10^3/uL (0.0-0.1) 12/08/22 05:00 Absolute Gran (auto) Cancelled 12/07/22 02:53 Nucleated RBC % (auto) 0 % 12/08/22 05:00 Nucleated RBCs # 0.0 /100WBC 12/08/22 05:00 D-Dimer 1.15 ug/mIFEU (0-0.59) H 12/05/22 02:58 Specimen Type Arterial 12/05/22 04:28 Sample Site Brachial, left 12/05/22 04:28 ABG pH 7.37 (7.35-7.45) 12/05/22 04:28 ABG pCO2 58.8 mmHg (35-45) H 12/05/22 04:28 ABG pO2 107.0 mmHg (80.0-100.0) H 12/05/22 04:28 ABG HCO3 34.3 mmol/L (22-26) H 12/05/22 04:28 ABG O2 Saturation > 100.0 12/05/22 00:41 ABG Base Excess 7.5 mmol/L (-2.0-2.0) H 12/05/22 04:28 Marvin Test N/a 12/05/22 04:28 A-a O2 Gradient 31.5 mmHg (5-10) H 12/05/22 00:41 Hematocrit 34.2 % (42-52) L 12/05/22 04:28 Hgb O2 Saturation 98.5 % (95-100) 12/05/22 00:41 Carboxyhemoglobin 1.1 %THgb (0.4-20.1) 12/05/22 00:41 Methemoglobin 0.9 % (0.4-1.5) 12/05/22 00:41 Total Hemoglobin 11.9 g/dL (14-18) L 12/05/22 00:41 Sodium 141.0 mmol/L (131-143) 12/05/22 00:41 Potassium 4.2 mmol/L (3.5-5.0) 12/05/22 00:41 Glucose 157.0 mg/dL (70-115) H 12/05/22 00:41 Ionized Calcium 1.1 mmol/L (1.1-1.4) 12/05/22 00:41 O2 Delivery Device Bipap 12/05/22 04:28 FiO2 70.0 % 12/05/22 04:28 [employer] Advanced ID Dung 12/05/22 04:28 Sodium 137 mmol/L (136-145) 12/08/22 05:00 Potassium 3.1 mmol/L (3.5-5.1) L 12/08/22 05:00 Chloride 89 mmol/L (98-107) L 12/08/22 05:00 Carbon Dioxide 39 mmol/L (22-29) H 12/08/22 05:00 Anion Gap 12.1 (5-19) 12/08/22 05:00 BUN 25 mg/dL (6-20) H 12/08/22 05:00 Creatinine 0.8 mg/dL (0.7-1.2) 12/08/22 05:00 GFR Calculation 108.2 mL/min (90-130) 12/08/22 05:00 Glucose 129 mg/dL (65-115) H 12/08/22 05:00 POC Glucose 159 mg/dL (70-110) H 12/05/22 00:32 Calculated Osmolality 290 mOsm/kg (285-295) 12/08/22 05:00 Lactate 1.3 mmol/L (0.5-2.2) 12/05/22 02:58 Calcium 8.7 mg/dL (8.5-10.5) 12/08/22 05:00 Magnesium 2.0 mg/dL (1.7-2.3) 12/04/22 14:27 Total Bilirubin 0.2 mg/dL (0.15-1.2) 12/08/22 05:00 AST 14 U/L (0-40) 12/08/22 05:00 ALT 12 U/L (0-41) 12/08/22 05:00 Alkaline Phosphatase 77 U/L (40-130) 12/08/22 05:00 Troponin T Baseline 9 ng/L (0-15) 12/05/22 02:58 Troponin T 120 Minute 11.50 ng/L (0-15) 12/05/22 04:50 Delta Troponin T 2.5 ABS# (0-10) 12/05/22 04:50 Troponin T Hi Sens 6Hr 8.42 ng/L (0-15) 12/05/22 09:03 Troponin T Hi Sens 6Hr Delta -0.58 ng/L (0-12) L 12/05/22 09:03 C-Reactive Protein 97.0 mg/L (0.0-4.9) H 12/05/22 02:58 NT-Pro-B Natriuret Pep 237 pg/mL (0-125) H 12/05/22 02:58 Total Protein 7.2 g/dL (6.6-8.7) 12/08/22 05:00 Albumin 3.7 g/dL (3.5-5.2) 12/08/22 05:00 Globulin 3.5 g/dL (1.3-4.6) 12/08/22 05:00 Procalcitonin 0.16 ng/mL (0-0.5) 12/05/22 02:58 Nasal Influ A H1 2009 PCR Not detected (NOT DETECT) 12/04/22 14:35 Vancomycin Trough 17.6 ug/mL (10-15) H 12/06/22 12:53 Adenovirus (PCR) Not detected (NOT DETECT) 12/04/22 14:35 C. pneumoniae DNA (PCR) Not detected (NOT DETECT) 12/04/22 14:35 Coronavirus 229E (PCR) Not detected (NOT DETECT) 12/04/22 14:35 Human Metapneumovir PCR Not detected (NOT DETECT) 12/04/22 14:35 Influenza A (H1) PCR Not detected (NOT DETECT) 12/04/22 14:35 Influenza A (H3) PCR Not detected (NOT DETECT) 12/04/22 14:35 Influenza Type A (PCR) Not detected (NOT DETECT) 12/04/22 14:35 Influenza Type B (PCR) Not detected (NOT DETECT) 12/04/22 14:35 M. pneumoniae (PCR) Not detected (NOT DETECT) 12/04/22 14:35 Parainfluenza 1 (PCR) Not detected (NOT DETECT) 12/04/22 14:35 Parainfluenza 2 (PCR) Not detected (NOT DETECT) 12/04/22 14:35 Parainfluenza 3 (PCR) Not detected (NOT DETECT) 12/04/22 14:35 Parainfluenza 4 (PCR) Detected (NOT DETECT) A 12/04/22 14:35 RSV Type A (PCR) Not detected (NOT DETECT) 12/04/22 14:35 RSV Type B (PCR) Not detected (NOT DETECT) 12/04/22 14:35 Entero/Rhino (PCR) Not detected (NOT DETECT) 12/04/22 14:35 SARS-CoV-2 (PCR) Not detected (NOT DETECT) 12/04/22 14:35 Vitals Last Vital Signs Temp 98.8 F 12/09/22 08:46 Pulse 97 12/09/22 11:17 Resp 16 12/09/22 11:17 BP 124/75 12/09/22 08:46 Pulse Ox 93 12/09/22 11:17 O2 Del Method 12/09/22 10:57 O2 Flow Rate 3 12/09/22 10:57 FiO2 40 12/08/22 23:53 Discharge Plan Discharge Patient Disposition: Xfer [facility] Condition: Stable Prescriptions: New prednisone 50 mg tablet 50 mg PO DAILY 5 Days Qty: 5 0RF Augmentin 500-125 mg tablet 1 tab PO BID Qty: 10 0RF Proventil HFA 90 mcg/actuation HFA aerosol inhaler 1 inh inhalation Q6H PRN (Reason: shortness of breath or wheezing) Qty: 8.5 1RF Pulmicort Flexhaler 180 mcg/actuation aerosol powdr breath activated 1 inh inhalation BID Qty: 1 1RF Continued citalopram 40 mg tablet 40 mg PO DAILY@1000 allopurinol 100 mg tablet 100 mg PO DAILY@1000 sennosides-docusate sodium [Senna-S] 8.6-50 mg Tablet 1 tab-cap PO BID tramadol 50 mg Tablet 50 mg PO Q6H PRN (Reason: Pain) omeprazole 20 mg Capsule,Delayed Release(Dr/Ec) 20 mg PO DAILY cholecalciferol (vitamin D3) [Vitamin D3] 25 mcg (1,000 unit) Capsule 25 mcg PO DAILY aspirin [Adult Aspirin Regimen] 81 mg tablet,delayed release (DR/EC) 81 mg PO DAILY Qty: 90 0RF naloxone 0.4 mg/mL Solution 0.4 mg SUBCUT Q2M PRN (Reason: overdose) Rx Instructions: NTExceed 10 mg total dose/episode potassium chloride 10 mEq Tablet Extended Release 10 meq PO DAILY acetaminophen 500 mg Tablet 500 mg PO Q6H PRN (Reason: Pain) levothyroxine 125 mcg Tablet 125 mcg PO DAILY furosemide 40 mg tablet 40 mg PO DAILY triamcinolone acetonide 0.1 % Cream 1 applic TOPICAL DAILY PRN (Reason: Rash) Discharge Orders: Discharge Order (Routine); Ordered 12/09/22 Ordered By: Apolinar Orellana Referrals: [facility] [Outside] Datar,Brennan Steen MD [Physician] - 12/27/22 12:45 pm Mateusz Lynn MD [Primary Care Provider] - Patient Instructions: Opioid Safety Discharge Attestations Time Spent in Discharge Care*: less than 30 min Quality Metrics Clinical Quality Measures [ No reported AMI, CVA or VTE this stay] Coding Level of Care Code Acute Chg FW DC note Exam Detailed Diagnoses Bronchitis due to parainfluenza virus J20.4 Hypoxia R09.02 Down syndrome, unspecified Q90.9 Congestive heart failure I50.9 Sleep apnea G47.30 Respiratory failure with hypoxia and hypercapnia J96.91; J96.92
[2022-12-09 11:39] LABS: SARS Covid-2 Antigen negative (Negative)
== END 2022-12-09 19:40 | disposition skilled nursing facility (03) | DRG 202 ==
LOC: ER 17:37 → MEDSURG 18:51 → ICU 12-05 00:54 → MEDSURG 12-07 15:40
PROVIDERS: Family Medicine; Admitting Provider Internal Medicine; Emergency Provider Student in an Organized Health Care Education/Training Program; PCP Internal Medicine Cardiovascular Disease; Visit Provider Internal Medicine
DX: J20.4 Acute bronchitis due to parainfluenza virus (principal); I50.33 Acute on chronic diastolic (congestive) heart failure; J96.02 Acute respiratory failure with hypercapnia; J96.01 Acute respiratory failure with hypoxia; J18.9 Pneumonia, unspecified organism; Q90.9 Down syndrome, unspecified; G47.33 Obstructive sleep apnea (adult) (pediatric); M54.16 Radiculopathy, lumbar region; Z79.891 Long term (current) use of opiate analgesic; Z79.82 Long term (current) use of aspirin; Z96.642 Presence of left artificial hip joint; E03.9 Hypothyroidism, unspecified; Z91.199 Patient's noncompliance with other medical treatment and regimen due to unspecified reason; R00.0 Tachycardia, unspecified
CPT/HCPCS: 36415; 36416; 36600; 51702; 71045; 71275; 80051; 80053; 80202; 82330; 82803; 82805; 82962; 83605; 83735; 83880; 84145; 84484; 85025; 85378; 86140; 86403; 87040; 87070; 87205; 87426; 87449; 87486; 87581; 87633; 87641; 92523; 92610; 93005; 93970; 94640; 94660; 94664; 94760; 96374; 99285; J1100; J1940; J2060; J2543; J2920; J2930; J3370; J3475; J3480; J7613; J7614; J7626; Q9967